=== PATIENT | female | born 2005 | race Caucasian/White ===

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

== ENCOUNTER → 2023-01-10 10:41 | Outpatient (CLI) | payer OTHER, SELFPAY ==
--- NOTE | 2023-01-10 10:44 | XR_ITS ---
FINAL REPORT CLINICAL HISTORY: neck pain..shielded..headaches FINDINGS: Five views of the cervical spine including flexion and extension were obtained. There is no acute fracture or subluxation. No instability is seen with flexion or extension. The vertebrae are normal height. Precervical soft tissues are unremarkable. IMPRESSION: Unremarkable exam, no instability with flexion or extension. Reviewed, Interpreted and Dictated by Maxwell Sanders III, MD Transcribed by Lima Davila Authenticated and [facility]
[2023-01-10 12:39] LABS: Thyroid Stimulating Hormone 0.44 uIU/mL (0.465-4.68)
[2023-01-10 13:15] LABS: Vitamin B12 411 pg/mL (239-931)
[2023-02-06 21:27] LABS: Antinuclear Antibodies (ANA) Negative
== END ==
PROVIDERS: PCP Internal Medicine Adolescent Medicine; Visit Provider Nurse Practitioner Family
DX: R55 Syncope and collapse (principal); G89.29 Other chronic pain; G93.40 Encephalopathy, unspecified; M54.2 Cervicalgia; R51.9 Headache, unspecified
CPT/HCPCS: 36415; 72052; 82607; 82746; 84443; 86038; 93270

== ENCOUNTER → 2023-02-08 13:10 | Outpatient (CLI) | payer OTHER, SELFPAY | PROVIDERS: PCP Internal Medicine Adolescent Medicine; Visit Provider Nurse Practitioner Family | DX: G47.30 Sleep apnea, unspecified (principal); G93.40 Encephalopathy, unspecified; M54.2 Cervicalgia; R51.9 Headache, unspecified; G89.29 Other chronic pain; G47.00 Insomnia, unspecified; R55 Syncope and collapse | CPT/HCPCS: G0399 ==

== ENCOUNTER → 2023-02-10 08:31 | Outpatient (CLI) | payer OTHER, SELFPAY | PROVIDERS: PCP Internal Medicine Adolescent Medicine; Visit Provider Nurse Practitioner | DX: R55 Syncope and collapse (principal); R00.0 Tachycardia, unspecified | CPT/HCPCS: 93306 ==

== ENCOUNTER 2023-04-02 10:28 | Emergency (ER) | payer OTHER, SELFPAY ==
[2023-04-02 10:40] VITALS: BP 129/67; PULSE 80; RESP 20; TEMP 37.1; O2SAT 98; BMI 23.4
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
[2023-04-02 10:49] VITALS: BP 129/67; PULSE 80; RESP 20; TEMP 37.1; O2SAT 98
[2023-04-02 11:45] LABS: HCG Qualitative, Serum Negative (Negative)
== END 2023-04-02 10:51 | disposition home or self-care (01) ==
PROVIDERS: Emergency Provider Nurse Practitioner Family; PCP Internal Medicine Adolescent Medicine
DX: N91.2 Amenorrhea, unspecified (principal); J45.909 Unspecified asthma, uncomplicated; Z87.891 Personal history of nicotine dependence
CPT/HCPCS: 84703; 99212; G0463

== ENCOUNTER → 2023-05-06 13:30 | Outpatient (CLI) | payer OTHER, SELFPAY ==
[2023-05-06 14:22] LABS: HCG,Quantitative 142 mIU/ml (0-5.42)
[2023-05-08 11:18] LABS: Progesterone 18.8 ng/mL (.)
== END ==
PROVIDERS: PCP Internal Medicine Adolescent Medicine; Visit Provider Obstetrics & Gynecology
DX: N92.6 Irregular menstruation, unspecified (principal)
CPT/HCPCS: 36415; 84144; 84702

== ENCOUNTER 2023-05-08 12:48 | Emergency (ER) | payer OTHER, SELFPAY ==
--- NOTE | 2023-05-08 12:52 | HMH.EDGENADL ---
Discharge Plan Disposition Patient Disposition: Home, Self-Care Condition: Good Prescriptions Prescriptions: New nitrofurantoin 50 mg/5 mL suspension 50 mg PO Q6H 7 Days Qty: 140 0RF Rx Instructions: must administer with a meal/food No Action ondansetron HCl 4 mg tablet 4 mg PO TID PRN (Reason: Nausea & vomiting) Qty: 30 0RF sertraline 25 mg tablet 25 mg PO DAILY Qty: 30 1RF albuterol sulfate [Proventil HFA] 90 mcg/actuation HFA aerosol inhaler 1 inh inhalation PRN polyethylene glycol 3350 [Gavilax] 17 gram/dose powder 17 g PO PRN Patient Comments: MIX 1 CAPFUL OF POWDER IN LIQUID AND DRINK BY MOUTH ONCE DAILY cranberry extract-vitamin C [Azo Cranberry Plus Vit C] 250-60 mg capsule See Rx Instructions PO .COMPLEX Rx Instructions: orally daily; multivitamin Tablet 1 tab PO DAILY cyproheptadine 4 mg tablet 4 mg PO HS 30 Days Qty: 30 1RF sumatriptan succinate 100 mg tablet See Rx Instructions PO .COMPLEX Qty: 10 1RF Rx Instructions: take 1 tab at onset of headache; if no relief, may repeat 1 tab after at least 2 hrs; max = 2 tabs/24 hrs PO bisoprolol fumarate 5 mg tablet 5 mg PO DAILY Qty: 30 2RF Referrals Follow up/Referrals: Patricia Downs DO [Primary Care Provider] - See instructions Activity Restrictions/Add. Instructions Additional Instructions/Restrictions: As discussed, I have written a prescription for antibiotics given that you have bacteria in your urine during , your ultrasound does not show any abnormalities but you may be too early in her to detect an abnormality thus if you have new or worsening symptoms please return to the emergency department. Please follow-up with your OB doctor Clinical Impressions Clinical Impression: Acute right lower quadrant pain, Asymptomatic bacteriuria during Instructions Patient Instructions: DI for Acute Abdominal Pain Discharge ED Provider: Mahesh Gates Adult HPI General Chief complaint: Abdominal Pain Stated complaint: ab pain right, back pain radiating Time Seen by Provider: 05/08/23 12:52 History of Present Illness HPI narrative: Patient presents for evaluation of mild right lower quadrant abdominal pain in the absence of any fevers or nausea or vomiting or urinary symptoms. Has not had similar symptoms before, of note is approximately 4 weeks , has yet to establish care with OB service, but describes upcoming appointment in the near future. Symptoms were gradual in onset starting over the past 24 hours, stable in course, pain is described as dull and nonradiating, no precipitating trauma, no abdominal surgical history. No sick contacts, no constipation or diarrhea. No known history of ovarian cyst. Denies daily medications. No vaginal bleeding or vaginal discharge. No recent travel. Symptoms did not occur in the setting of exertion or any known precipitating factors. Related Data Home Medications Medication Instructions Recorded Confirmed albuterol sulfate 90 mcg/actuation 1 inh inhalation PRN 01/10/23 01/27/23 aerosol inhaler (Proventil HFA) cranberry extract-vitamin C 250 See Rx Instructions PO .COMPLEX 01/10/23 01/27/23 mg-60 mg capsule (Azo Cranberry Plus Vit C) multivitamin 1 tab PO DAILY 01/10/23 01/27/23 polyethylene glycol 3350 17 17 g PO PRN 01/10/23 01/27/23 gram/dose oral powder (Gavilax) Previous Rx's Medication Instructions Recorded ondansetron HCl 4 mg tablet 4 mg PO TID PRN Nausea & vomiting 12/20/22 #30 tabs sertraline 25 mg tablet 25 mg PO DAILY #30 tabs 12/20/22 cyproheptadine 4 mg tablet 4 mg PO HS migraine per [place]oc[place] 01/10/23 [employer] guideli 30 days #30 tabs sumatriptan succinate 100 mg tablet See Rx Instructions PO .COMPLEX 01/10/23 #10 tabs bisoprolol fumarate 5 mg tablet 5 mg PO DAILY #30 tabs 01/27/23 nitrofurantoin 50 mg/5 mL oral 50 mg (5 mL) PO Q6H 7 da
[2023-05-08 12:57] VITALS: BP 131/82; PULSE 88; RESP 19; TEMP 37.2; O2SAT 100; BMI 21.4
--- NOTE | 2023-05-08 12:58 | PC.NURSE ---
called radiology for /s
[2023-05-08 13:00] VITALS: BP 117/76; PULSE 84; RESP 18; O2SAT 100
--- NOTE | 2023-05-08 13:00 | PC.NURSE ---
US tech called in for info. regarding us on pt
--- NOTE | 2023-05-08 13:04 | US_ITS ---
PROCEDURE INFORMATION: Exam: US , Transvaginal Exam date and time: 05/08/2023 1:37 PM Age: 17 years old Clinical indication: complicated by abdominal or pelvic pain; Right lower quadrant; First trimester (<14 weeks 0 days); Gestational age or lmp: Unsure lmp 6w5d; ; Patient HX: Rlq pain-- bhcgs on 05/06-- 142; Additional info: Abd pain LABS AND CLINICAL REPORTS: Last menstrual period start date: 03/22/2023 Gestational age (Established): 6 w 5 d Estimated due date (Established): 12/27/2023 TECHNIQUE: Imaging protocol: Real-time transvaginal obstetrical ultrasound of the maternal pelvis with image documentation. Transvaginal imaging was used for better evaluation of the fetus, adnexa, and/or cervix. Total images: 145 COMPARISON: CT ABDOMEN PELVIS W CON 11/24/2022 7:52 AM FINDINGS: Gestation: No evidence of intrauterine gestation. MATERNAL: Right ovary/adnexa: Right ovary measures 5.5 cm x 3.46 cm x 3.03 cm. Right ovarian volume is 30.19 mL. Complex right adnexal cyst is present measuring 2.4 x 2.2 x 2.1 cm. Surrounding vascularity is present. Left ovary/adnexa: Left ovary measures 2.92 cm x 2.76 cm x 1.19 cm. Left ovarian volume is 5.02 mL. Intraperitoneal space: No free fluid. IMPRESSION: 1. No evidence of intrauterine gestation. Findings may be consistent with miscarriage, however early or ectopic cannot be excluded. 2. Complex right adnexal cyst is present measuring 2.4 x 2.2 x 2.1 cm. Surrounding vascularity is present. 3. No free fluid.
--- NOTE | 2023-05-08 13:14 | PC.NURSE ---
Assumed patient care at this time.
[2023-05-08 13:30] VITALS: BP 118/77; PULSE 89; O2SAT 100
[2023-05-08 13:35] LABS: Alanine Aminotransferase 19 U/L (12-78); Albumin Level 4.7 g/dl (3.5-5.0); Albumin/Globulin Ratio 1.5 (1.1-1.8); Alkaline Phosphatase 65 U/L (38-126); Anion Gap 13.7 mEq/L (5-15); Aspartate Amino Transferase 25 U/L (14-36); Bilirubin,Total 0.5 mg/dl (0.2-1.3); Blood Urea Nitrogen 9 mg/dl (7-17); Calcium 9.3 mg/dl (8.4-10.2); Carbon Dioxide 22 mmol/L (22.0-30.0); Chloride 106 mmol/L (98-107); Creatinine Clearance Estimated 134 mL/min (50-200); Estimated Glomerular Filt Rate 108 ml/min (>60); GFR (African American) 130 ML/MIN (>60); Globulin 3.2 g/dL (1.3-3.2); Glucose 116 mg/dl (74-100); Potassium 3.7 mmoL/L (3.5-5.1); Sodium 138 mmol/L (136-145); Total Protein,Serum 7.9 g/dl (6.3-8.2)
--- NOTE | 2023-05-08 13:35 | PC.NURSE ---
Pt to US
[2023-05-08 13:36] LABS: Basophils % 0.4 % (0.1-2.0); Eosinophils # 0.1 K/mm3 (0.0-0.4); Hematocrit 39.2 % (37.0-47.0); Hemoglobin 12.4 g/dL (12.2-16.2); Lymphocytes # 1.6 K/mm3 (0.7-4.5); Lymphocytes % 22.6 % (10-50); Mean Corpuscular HGB Conc 31.6 g/dL (31.8-35.4); Mean Corpuscular Hemoglobin 28.4 pg (27.0-31.2); Mean Platelet Volume 8.8 fl (7.4-10.4); Monocytes # 0.4 K/mm3 (0.1-1.0); Monocytes % 5.4 % (1.7-9.3); Neutrophils % 70.6 % (37.0-80.0); Platelet Count 194 K/mm3 (142-424); Red Blood Count 4.36 M/mm3 (4.20-5.40); Red Cell Distribution Width 12.9 % (11.5-17.5); White Blood Count 7.1 K/mm3 (4.5-13.0)
[2023-05-08 13:52] LABS: HCG,Quantitative 351 mIU/ml (0-5.42)
[2023-05-08 14:02] VITALS: BP 129/90; PULSE 71; O2SAT 100
[2023-05-08 14:31] VITALS: BP 113/79; PULSE 76; O2SAT 100
[2023-05-08 14:32] LABS: Microscopic, Urine URINE MICROSCOPIC (MICROSCOPIC)
[2023-05-08 14:43] LABS: Appearance,Urine CLEAR (Clear); Bilirubin,Urine Negative (Negative); Blood, Urine Negative (Negative); Color,Urine YELLOW (Yellow); Glucose,Urine (UA) Negative (Negative); Ketones,Urine Negative (Negative); Leukocyte Esterase,Urine 1+ (Negative); Nitrate,Urine Negative (Negative); Protein,Urine 1+ (Negative); Specific Gravity, Urine 1.025 (1.005-1.030); Urobilinogen,Urine 0.2 EU/dl (0.2)
[2023-05-08 15:15] LABS: Bacteria,Urine Trace /lpf
[2023-05-08 15:34] VITALS: BP 105/80; PULSE 81; RESP 18; TEMP 36.7
--- NOTE | 2023-05-09 12:20 | PC.NURSE ---
[facility] pharmacy called requesting that they change macrobid from suspension to pill form r/t suspension form is unavailable.
--- NOTE | 2023-05-18 09:52 | EXP.EVENT.NO ---
On 05/18 at 9:52 AM, I sent clotrimazole 1% cream topically to patient's pharmacy, after conversation with pharmacy.
--- NOTE | 2023-05-18 10:21 | PC.NURSE ---
notified pt of urine culture results and of prescription called in [facility]. Spoke with pt on the phone.
--- NOTE | 2023-05-21 09:18 | PC.NURSE ---
pt receiving appropriate antibiotic and cream for yeast culture results. MD lira
== END 2023-05-08 15:35 | disposition home or self-care (01) ==
PROVIDERS: Emergency Provider Emergency Medicine; PCP Obstetrics & Gynecology
DX: O26.891 Other specified pregnancy related conditions, first trimester (principal); O23.41 Unspecified infection of urinary tract in pregnancy, first trimester; R10.31 Right lower quadrant pain; Z3A.01 Less than 8 weeks gestation of pregnancy
CPT/HCPCS: 76817; 76830; 80053; 81001; 84702; 85025; 86850; 87086; 87088; 99285

== ENCOUNTER → 2023-06-07 10:51 | Outpatient (CLI) | payer OTHER, SELFPAY ==
[2023-06-07 11:25] LABS: Basophils % 0.1 % (0.1-2.0); Eosinophils # 0.1 K/mm3 (0.0-0.4); Eosinophils % 1.7 % (0.1-12.0); Hematocrit 35.2 % (37.0-47.0); Hemoglobin 12.1 g/dL (12.2-16.2); Lymphocytes # 1.1 K/mm3 (0.7-4.5); Lymphocytes % 20.5 % (10-50); Mean Corpuscular HGB Conc 34.5 g/dL (31.8-35.4); Mean Corpuscular Hemoglobin 30.6 pg (27.0-31.2); Mean Corpuscular Volume 88.8 fl (81-99); Mean Platelet Volume 7.9 fl (7.4-10.4); Monocytes # 0.3 K/mm3 (0.1-1.0); Monocytes % 4.8 % (1.7-9.3); Neutrophils # 3.9 K/mm3 (1.8-7.8); Neutrophils % 72.9 % (37.0-80.0); Platelet Count 159 K/mm3 (142-424); Red Blood Count 3.97 M/mm3 (4.20-5.40); Red Cell Distribution Width 12.8 % (11.5-17.5); White Blood Count 5.4 K/mm3 (4.5-13.0)
[2023-06-08 08:29] LABS: HIV Screen 4th Generation wRfx Non Reactive (Non Reactive)
[2023-06-08 12:05] LABS: Rapid Plasma Reagin Ab Titer Non Reactive titer (NonRea<1:1)
[2023-06-09 23:37] LABS: Neisseria gonorrhoeae, NAA Negative (Negative)
[2023-06-15 12:06] LABS: Hepatitis B Surface Antigen Negative; Hepatitis C Antibody Non Reactive; Rubella Antibodies, IgG 7.99
== END ==
PROVIDERS: PCP Internal Medicine Adolescent Medicine; Visit Provider Obstetrics & Gynecology
DX: Z34.91 Encounter for supervision of normal pregnancy, unspecified, first trimester (principal); Z3A.09 9 weeks gestation of pregnancy
CPT/HCPCS: 36415; 85025; 86593; 86703; 86762; 86850; 87086; 87340; 87380; 87491; 87591; G0432

== ENCOUNTER → 2023-07-06 06:41 | Outpatient (CLI) | payer OTHER, SELFPAY | PROVIDERS: PCP Obstetrics & Gynecology; Visit Provider Obstetrics & Gynecology | DX: Z34.90 Encounter for supervision of normal pregnancy, unspecified, unspecified trimester (principal) ==

== ENCOUNTER → 2023-07-06 15:06 | Outpatient (CLI) | payer OTHER, SELFPAY ==
[2023-07-11 06:06] LABS: Neisseria gonorrhoeae, NAA Negative (Negative)
== END ==
PROVIDERS: PCP Obstetrics & Gynecology; Visit Provider Obstetrics & Gynecology
DX: Z86.19 Personal history of other infectious and parasitic diseases (principal)
CPT/HCPCS: 87491; 87591

== ENCOUNTER 2023-08-24 13:42 | Outpatient (CLI) | payer OTHER, SELFPAY ==
--- NOTE | 2023-08-24 13:42 | US_ITS ---
PROCEDURE: US OB /MATERNAL DETAIL CLINICAL INDICATION: 20 week anatomy scan COMPARISON: No exams were available for comparison FINDINGS: Transabdominal sonographic images of the pelvis were obtained. From her established due date she is 20 weeks 2 days. Single viable intrauterine gestation. Breech position. Placenta: Anteriorplacenta grade 1. There are 2 placental lakes of questionable significance. There is an average amount of fluid. The cervix appears satisfactory. Closed and measuring 4.3 cm in length. Complete survey performed and was unremarkable on the submitted images as in PACS. No discrete anomalies identified on survey imaging by technologist. Active fetus. Three-vessel cord with satisfactory umbilical cord insertion. 4- chamber heart noted. Situs, aortic arch, LVOT, RVOT,normal. Survey of brain & ventricles Unremarkable. Cerebellum, thalamus, choroid plexus, cisterna magna appear normal. Face and neck survey unremarkable. Profile, nasion, lips and nose appeared normal. Diaphragm and chest views unremarkable. Abdomen: Both kidneys noted and unremarkable. Stomach and bladder noted and satisfactory. Spine: Survey of the spine satisfactory with no anomalies identified nor imaged. Cervical, thoracic, lower spine appear normal. Both arms and legs noted. Amniotic Fluid: Adequate. Measurements: Average ultrasound age 20weeks 0 days. Estimated due date by ultrasound age 0501/11/2024. Estimated weight 318g BPD = 20weeks 2days OFD = 20weeks 4days HC = 19weeks 5days AC = 19weeks 5days FL = 20weeks 1day Growth Percentile= 24 Heart Rate = 156bpm Cerebellum = 20weeks 0 days Humerus = 19weeks 6days HC/AC is 1.19 CI is 0.77 FL/BPD is 0.69 FL/AC is 0.22 IMPRESSION: 1. Viable fetus in the breech presentation with an anterior placenta grade 1. 2. The fluid is within normal limits. 3. Anatomical scan appears normal. 4. biometry is consistent with dates. Dictated by: Sergei Angeles MD 08/24/2023 17:08 Sergei Angeles MD in OV 08/24/2023 17:08
== END 2023-08-24 23:59 ==
LOC: RAD 13:42
PROVIDERS: PCP Internal Medicine Adolescent Medicine; Visit Provider Obstetrics & Gynecology
DX: Z34.92 Encounter for supervision of normal pregnancy, unspecified, second trimester (principal); Z3A.20 20 weeks gestation of pregnancy
CPT/HCPCS: 76811

== ENCOUNTER 2023-10-17 08:12 | Outpatient (CLI) | payer OTHER, SELFPAY ==
[2023-10-17 08:40] LABS: Basophils % 0.2 % (0.1-2.0); Eosinophils # 0.1 K/mm3 (0.0-0.4); Eosinophils % 1.2 % (0.1-12.0); Hematocrit 36.1 % (37.0-47.0); Hemoglobin 11.5 g/dL (12.2-16.2); Lymphocytes # 1.6 K/mm3 (0.7-4.5); Lymphocytes % 21.9 % (10-50); Mean Corpuscular HGB Conc 31.7 g/dL (31.8-35.4); Mean Corpuscular Hemoglobin 30.1 pg (27.0-31.2); Mean Platelet Volume 9.4 fl (7.4-10.4); Monocytes # 0.4 K/mm3 (0.1-1.0); Monocytes % 5.1 % (1.7-9.3); Neutrophils # 5.2 K/mm3 (1.8-7.8); Neutrophils % 71.5 % (37.0-80.0); Platelet Count 177 K/mm3 (142-424); Red Blood Count 3.81 M/mm3 (4.20-5.40); Red Cell Distribution Width 12.9 % (11.5-17.5); White Blood Count 7.3 K/mm3 (4.5-13.0)
[2023-10-17 09:06] LABS: Glucose,Fasting 75 mg/dl (74-100)
[2023-10-17 11:02] LABS: Glucose 1 Hour 95 mg/dL (74-100)
== END 2023-10-17 23:59 ==
LOC: LAB 08:13
PROVIDERS: PCP Internal Medicine Adolescent Medicine; Visit Provider Obstetrics & Gynecology
DX: O26.893 Other specified pregnancy related conditions, third trimester (principal); O99.323 Drug use complicating pregnancy, third trimester; D56.3 Thalassemia minor; Z3A.28 28 weeks gestation of pregnancy
CPT/HCPCS: 36415; 82951; 85025

== ENCOUNTER 2023-10-20 13:18 | Outpatient (CLI) | payer OTHER, SELFPAY ==
--- NOTE | 2023-10-20 13:19 | US_ITS ---
PROCEDURE: US OB FOLLOW UP CLINICAL INDICATION: SGA COMPARISON: US US OB /MATERNAL DETAIL from 08/24/2023 FINDINGS: Transabdominal sonographic images of the pelvis were obtained. The following parameters are obtained: From her established due date she is 28weeks 3days Viable fetus in the cephalic presentation with an anterior placenta grade 1. There is a placental St at the superior aspect of the placenta that measures 6.0 centimeters in length.. The cervix measures 3.0 cm. heart rate: 147bpm bpm. weight 1158 grams, 2 lb 9 oz. BPD: 29weeks 4days, 71 percentile HC: 29weeks 0 days, 34 percentile AC: 27weeks 1day, 11 percentile FL: 28weeks 6days, 44 percentile HC/AC: 1.17 FL/BPD: 0.74 FL/AC: 0.24 Growth percentile: 23rd Amniotic fluid index: 10.13cm, MVP 3.68 cm No obvious anomalies evident. profile seen, stomach, bladder, kidneys, three-vessel cord, four chamber heart appear normal. IMPRESSION: 1. Viable fetus in the cephalic presentation with an anterior placenta grade 1. 2. In the superior aspect of the placenta there is a [address] Suggest MFM consult. 3. The fluid is within normal limits with an amniotic fluid index of 10.13 cm, MVP 3.68 cm. 4. There has been good interval growth with the fetus currently 23rd percentile. Dictated by: Sergei Angeles MD 10/20/2023 15:08 Sergei Angeles MD in OV 10/20/2023 15:08
== END 2023-10-20 23:59 ==
LOC: RAD 13:19
PROVIDERS: PCP Internal Medicine Adolescent Medicine; Visit Provider Obstetrics & Gynecology
DX: O36.5930 Maternal care for other known or suspected poor fetal growth, third trimester, not applicable or unspecified (principal); Z3A.28 28 weeks gestation of pregnancy; D56.3 Thalassemia minor
CPT/HCPCS: 76816

== ENCOUNTER 2023-12-02 15:31 | Emergency (ER) | payer OTHER, SELFPAY ==
[2023-12-02] VITALS (8 sets, daily range): BP systolic 117–131; BP diastolic 74–85; PULSE 85–114; RESP 16–25; TEMP 36.7–37.1; O2SAT 97–100; BMI 28.5
--- NOTE | 2023-12-02 15:31 | ECG_ITS ---
APPROVED REPORT Exam: Resting ECG HR:106 bpm ECG Measurements Heart Rate 106 AXES OK 111 P 60 QRSd 92 QRS 56 QT 317 T 15 QTc 379 Conclusion SINUS TACHYCARDIA WITH SHORT OK INTERVAL NONSPECIFIC T-WAVE ABNORMALITY ABNORMAL RHYTHM ECG Electronically signed by : SHANTANU NICHOLAS, 12/02/2023 20:49:00
--- NOTE | 2023-12-02 15:50 | XR_ITS ---
PROCEDURE INFORMATION: Exam: XR Chest Exam date and time: 12/02/2023 4:35 PM Age: 17 years old Clinical indication: Pain; Chest pressure; Additional info: Cp TECHNIQUE: Imaging protocol: Radiologic exam of the chest. Views: 1 view. COMPARISON: CT CHEST WO CON 05/21/2021 10:57 AM FINDINGS: Lungs: Unremarkable. No consolidation. Pleural spaces: Unremarkable. No pleural effusion. No pneumothorax. Heart/Mediastinum: Unremarkable. No cardiomegaly. Bones/joints: Unremarkable. IMPRESSION: Stable chest x-ray with no acute disease.
[2023-12-02 15:57] LABS: Basophils # 0.1 K/mm3 (0-0.2); Basophils % 0.6 % (0.1-2.0); Eosinophils # 0.1 K/mm3 (0.0-0.4); Eosinophils % 1.5 % (0.1-12.0); Hematocrit 37.9 % (37.0-47.0); Hemoglobin 12.3 g/dL (12.2-16.2); Lymphocytes # 1.3 K/mm3 (0.7-4.5); Lymphocytes % 14.7 % (10-50); Mean Corpuscular HGB Conc 32.6 g/dL (31.8-35.4); Mean Corpuscular Hemoglobin 30.1 pg (27.0-31.2); Mean Corpuscular Volume 92.6 fl (81-99); Mean Platelet Volume 9.9 fl (7.4-10.4); Monocytes # 0.4 K/mm3 (0.1-1.0); Monocytes % 4.4 % (1.7-9.3); Neutrophils % 78.8 % (37.0-80.0); Platelet Count 174 K/mm3 (142-424); Red Blood Count 4.09 M/mm3 (4.20-5.40); White Blood Count 8.8 K/mm3 (4.5-13.0)
[2023-12-02 15:58] LABS: Chloride 110 mmol/L (98-107)
[2023-12-02 15:59] LABS: Potassium 3.7 mmoL/L (3.5-5.1); Sodium 133 mmol/L (136-145)
[2023-12-02 16:01] LABS: Alanine Aminotransferase 15 U/L (12-78); Alkaline Phosphatase 126 U/L (38-126); Aspartate Amino Transferase 29 U/L (14-36); Bilirubin,Total 0.4 mg/dl (0.2-1.3); Blood Urea Nitrogen 4 mg/dl (7-17); Creatinine Clearance Estimated 250 mL/min (50-200); Estimated Glomerular Filt Rate 159 ml/min (>60); GFR (African American) 192 ML/MIN (>60)
[2023-12-02 16:02] LABS: Albumin Level 3.6 g/dl (3.5-5.0); Albumin/Globulin Ratio 1.2 (1.1-1.8); Anion Gap 5.7 mEq/L (5-15); Calcium 9.2 mg/dl (8.4-10.2); Carbon Dioxide 21 mmol/L (22.0-30.0); Glucose 115 mg/dl (74-100); Total Protein,Serum 6.6 g/dl (6.3-8.2)
[2023-12-02 16:11] LABS: D-Dimer 0.72 ug/mL (0.0-0.5)
--- NOTE | 2023-12-02 16:15 | HMH.EDCP ---
Discharge Plan Disposition Patient Disposition: Home, Self-Care Chief Complaint: Chest Pain Prescriptions Prescriptions: No Action famotidine [Pepcid] 20 mg tablet 20 mg PO BID Qty: 120 4RF DHA 200 mg capsule 200 mg PO DAILY ondansetron 4 mg tablet,disintegrating 4 mg PO Q8H PRN (Reason: nausea and vomiting) Qty: 30 1RF Referrals Follow up/Referrals: Provider,Referral, MD [Referring] - See instructions Activity Restrictions/Add. Instructions Additional Instructions/Restrictions: At this time it was felt you are safe to be discharged home. If new or worsening symptoms please do not hesitate to return the emergency department. If symptoms persist please follow-up with your family doctor as you are able for possible cardiology referral. Follow-up with your OB doctor as discussed. Clinical Impressions Clinical Impression: Chest pain during Discharge ED Provider: Myke Michael General Chief Complaint: Chest Pain Stated Complaint: Chest pain Time Seen by Provider: 12/02/23 15:47 Mode of Arrival: Ambulatory Source of Information: Patient Limitations: No Limitations Description of Symptoms (Recalled from ER Triage Doc. by RN): PT REPORTS INTERMITTENT MIDSTERNAL CHEST PAIN THAT RADIATES TO BACK. WORSE TODAY, WORSE WITH DEEP BREATHING. PT IS 34 WEEKS GESTATION. . REPORTS NAUSEA THIS AM History of Present Illness HPI narrative: Patient is a 17-year-old female past medical history of tracheoesophageal fistula status postrepair who presents emergency department for evaluation of chest pain. Patient has not had any cardiovascular abnormalities associated with TEF. Onset was acute, over the last 48 hours it was intermittent however has become persistent today, substernal, worse with deep inspiration. Patient is G1, P0 EGA 34 weeks and a few days. There is associated nausea however no vomiting or diarrhea, no abdominal pain, no other acute complaints at this time. Related Data Home Medications Medication Instructions Recorded Confirmed docosahexaenoic acid 200 mg 200 mg PO DAILY 06/07/23 11/30/23 capsule ( DHA) Previous Rx's Medication Instructions Recorded famotidine 20 mg tablet (Pepcid) 20 mg PO BID #120 tabs 11/02/23 ondansetron 4 mg disintegrating 4 mg PO Q8H PRN nausea and 11/21/23 tablet vomiting #30 tabs Allergies Allergy/AdvReac Type Severity Reaction Status Date / Time Penicillins [PENICILLINS] Allergy Unknown Anaphylaxis Verified 11/30/23 09:18 Sulfa (Sulfonamide Allergy Anaphylaxis Verified 11/30/23 09:18 Antibiotics) COCONUT Allergy Intermediate I-ITCHING Uncoded 11/30/23 09:18 [facility] Disclaimer: The information contained in this section may have been updated after the patient was seen, as this information can be updated by other users. 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 Asymmetric intrauterine growth restriction (IUGR) Placental abnormality Large placental moore Heartburn during Marijuana use during Alpha thalassemia silent carrier [employer] carrier screen 06/21/23 + for Alpha thalassemia silent carrier. Negative for 13 other conditions tested including CF, Fragile X and SMA Nausea and vomiting during History of rectal fissure repaired 2004 Benign liver cyst Asthma Cervical strain Abdominal pain Acute bronchitis Costalchondritis Atypical chest pain Gastroenteritis Surgical History History of rectal surgery fissure repair History of mandibular surgery 2019 Family History Mother FHx: mental illness Bipolar Substance abuse Father FHx: mental illness Bipolar Substance abuse Family/Other Heart attack Coronary artery disease Family/Other Cancer breast, lung, brain, cervical Family/Other Idiopathic pulmonary fibrosis Social History Smoking Status: Former smoker how long ago did patient quit smoking: vape second hand exposure: No alcohol intake: never substance use type: other details: cbd gummies current occupational status: unemployed Travel in the last 8 weeks: None adopted: Yes household members: adopted family housing: house lives independently: No marital status: single service: No 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 current occupational exposures/hazards: Yes Hx Recent Travel: No sexually active: No caffeine: Yes ROS Obtained: Yes Systems reviewed as appropriate & no additional complaints except as documented Physical Exam General General appearance: alert and in no apparent distress Head Head exam: atraumatic and normocephalic Eye Eye exam: Present PERRL and EOMI ENT ENT exam: Present mucous membranes moist Neck Neck exam: Present normal inspection Chest Chest inspection: Present normal inspection and symmetric chest wall rise Respiratory Respiratory exam: Present normal lung sounds bilaterally; Absent respiratory distress Cardiovascular Cardiovascular exam: Present regular rate and normal rhythm Abdominal Exam Abdominal exam: Present distention (Gravid); Absent tenderness Extremities Exam Extremities exam: Present normal inspection Neurological Exam Neurological exam: Present alert Psychiatric Psychiatric exam: Present normal affect Skin Skin exam: Present warm and dry HEART Score HEART Score HEART Score assessment performed?: Yes History (anamnesis): Moderately suspicious ECG: Normal Age: <45 years Risk factors: 1-2 risk factors Troponin: </= normal limit HEART Score: 2 Critical Care Critical Care Time Critical Care Time: No Medical Decision Making Maksim Inquiry Pt receiving controlled substance: No Vital Signs Vital Signs: 12/02/23 15:31 12/02/23 15:35 12/02/23 16:00 Temperature 98.0 F Temperature Source Oral Pulse Rate 114 H 95 H Pulse Rate [Apical] 108 H Respiratory Rate 18 25 H 16 Blood Pressure 125/85 119/78 Blood Pressure [Right Arm] 125/85 Blood Pressure Mean [Right Arm] 98 Blood Pressure Source [Right Arm] Automatic Cuff Blood Pressure Position [Right Arm] Sitting 02 Sat by Pulse Oximetry 100 97 98 Oxygen Delivery Method Room Air 12/02/23 16:30 12/02/23 17:00 Temperature Temperature Source Pulse Rate 98 H 92 H Pulse Rate [Apical] Respiratory Rate 21 17 Blood Pressure 117/78 120/74 Blood Pressure [Right Arm] Blood Pressure Mean [Right Arm] Blood Pressure Source [Right Arm] Blood Pressure Position [Right Arm] 02 Sat by Pulse Oximetry 97 98 Oxygen Delivery Method Lab Data Labs: Lab Results 12/02/23 15:36: WBC 8.8, RBC 4.09 L, Hgb 12.3, Hct 37.9, MCV 92.6, MCH 30.1, MCHC 32.6, RDW 13.0, Plt Count 174, MPV 9.9, Neut % (Auto) 78.8, Lymph % (Auto) 14.7, [place] % (Auto) 4.4, Eos % (Auto) 1.5, Baso % (Auto) 0.6, Neut # (Auto) 7.0, Lymph # (Auto) 1.3, [place] # (Auto) 0.4, Eos # (Auto) 0.1, Baso # (Auto) 0.1, D-Dimer 0.72 H, Sodium 133 L, Potassium 3.7, Chloride 110 H, Carbon Dioxide 21 L, Anion Gap 5.7, BUN 4 L, Creatinine 0.50 L, Estimated Creat Clear 250, Estimated GFR 159, Est GFR ( Amer) 192, Glucose 115 H, Calcium 9.2, Total Bilirubin 0.4, AST 29, ALT 15, Alkaline Phosphatase 126, Troponin I < 0.01, Total Protein 6.6, Albumin 3.6, Globulin 3.0, Albumin/Globulin Ratio 1.2 12/02/23 17:59: Troponin I < 0.01 12/02/23 15:36 12/02/23 15:36 Response Orders (Tests/Meds): ED MEDICATIONS Generic Name Dose Route Start Last Admin Trade Name Freq PRN Reason Stop Dose Admin Sodium Chloride 10 ml 12/02/23 15:44 Sodium Chloride 0.9% 10ml Flush Syringe IV 01/01/24 15:43 NEEDED PRN Maintain IV Site Discontinued Medications Generic Name Dose Route Start Last Admin Trade Name Freq PRN Reason Stop Dose Admin Acetaminophen 1,000 mg 12/02/23 15:58 12/02/23 16:18 Acetaminophen 1,000mg/100ml Vial IV 12/02/23 15:59 1,000 mg ONCE ONE Administration ORDERS Category Date Time Status CXR --portable [XR chest portable] Stat Exams 12/02/23 15:50 Completed Complete Blood Count Auto Diff Stat Lab 12/02/23 15:36 Completed Comprehensive Metabolic Panel Stat Lab 12/02/23 15:36 Completed D-Dimer Stat Lab 12/02/23 15:36 Completed Troponin I Q3H Lab 12/02/23 17:59 Completed Troponin I Q3H Lab 12/02/23 19:00 Ordered Troponin I Q3H Lab 12/02/23 21:45 Ordered Troponin I Q3H Lab 12/02/23 22:00 Ordered Troponin I Stat Lab 12/02/23 15:36 Completed ECG Data Tracing #1: ECG Narrative: Independently interpreted by me, rate is 106, rhythm is regular, sinus tachycardia, no ST elevation in anatomical contiguous leads, QTc 379. MDM Narrative Medical Decision Narrative: In summary patient is a 17-year-old female with past medical history described above who presents emergency department for evaluation of chest pain. Patient is hemodynamically stable nontoxic-appearing upon arrival, afebrile. Differential diagnosis includes pulmonary embolism, cardiac chest pain, noncardiac chest pain, acid reflux, dissection, among others. Workup will be conducted with hematologic labs, chest x-ray, EKG, troponins, D-dimer. Initial inventions include Tylenol. Workup reviewed by me, hematologic labs are nonactionable, D-dimer mildly elevated however pulmonary bruising can be excluded per years criteria, mild hyponatremia which is nonactionable, no THOMAS, initial troponin undetectably low. Upon repeat evaluation patient continued to be well-appearing. Serial troponins are undetectably low. Given this it is felt that all cardiovascular emergencies have been ruled out at this point patient is appropriate for discharge at this time. Patient was given return precautions.
[2023-12-02 16:17] LABS: Troponin I < 0.01 ng/ml (0.00-0.034)
[2023-12-02] MEDS: ACETAMINOPHEN 1,000MG/100ML VIAL 1000 MG IV (16:18)
--- NOTE | 2023-12-02 17:25 | PC.NURSE ---
Rounded on patient. Complaint of mild headache. MD notified.
[2023-12-02 18:31] LABS: Troponin I < 0.01 ng/ml (0.00-0.034)
--- NOTE | 2023-12-02 18:35 | PC.NURSE ---
FHT'S AUDIBLE PER DOPPLER AT 130'S
--- NOTE | 2023-12-02 18:36 | PC.NURSE ---
DR NICHOLAS AT BEDSIDE TO UPDATE PT
== END 2023-12-02 18:41 | disposition home or self-care (01) ==
PROVIDERS: Emergency Provider Emergency Medicine; PCP Internal Medicine Adolescent Medicine
DX: O26.893 Other specified pregnancy related conditions, third trimester (principal); R07.9 Chest pain, unspecified; R00.0 Tachycardia, unspecified; Z3A.34 34 weeks gestation of pregnancy
CPT/HCPCS: 71045; 80053; 84484; 85025; 85378; 93005; 96374; 99284; J0131

== ENCOUNTER 2023-12-12 09:52 | Outpatient (CLI) | payer OTHER, SELFPAY ==
[2023-12-12 09:56] VITALS: BP 133/79; PULSE 112; RESP 16; TEMP 37.1; O2SAT 98; BMI 28.5
== END 2023-12-12 10:26 | disposition home or self-care (01) ==
LOC: OBOUT 09:53 → OB 09:53
PROVIDERS: PCP Internal Medicine Adolescent Medicine; Visit Provider Obstetrics & Gynecology
DX: O26.893 Other specified pregnancy related conditions, third trimester (principal); Z3A.36 36 weeks gestation of pregnancy

== ENCOUNTER 2023-12-14 13:18 | Outpatient (CLI) | payer OTHER, SELFPAY ==
[2023-12-14] VITALS (8 sets, daily range): BP systolic 119–144; BP diastolic 73–90; PULSE 83–111; RESP 18; TEMP 36.8; O2SAT 97; BMI 28.5
[2023-12-14 14:09] LABS: Microscopic, Urine URINE MICROSCOPIC (MICROSCOPIC)
[2023-12-14 14:39] LABS: Fetal Membrane Rupture (Rapid) Negative (Negative)
[2023-12-14 14:45] LABS: Appearance,Urine CLEAR (Clear); Bilirubin,Urine Negative (Negative); Blood, Urine TRACE-I (Negative); Color,Urine YELLOW (Yellow); Glucose,Urine (UA) Negative (Negative); Ketones,Urine Negative (Negative); Leukocyte Esterase,Urine 3+ (Negative); Nitrate,Urine Negative (Negative); PH,Urine 6.5 (5.0-8.5); Protein,Urine Negative (Negative); Urobilinogen,Urine 0.2 EU/dl (0.2)
[2023-12-14 14:50] LABS: Amphetamine/Metha Screen,Urine Negative ng/ml (<1000); Benzodiazepines Screen,Urine Negative ng/ml (<200)
[2023-12-14 14:51] LABS: Barbiturates Screen,Urine Negative ng/ml (<200)
[2023-12-14 14:52] LABS: Cannabinoid Screen,Urine Negative ng/ml (<50); Cocaine Screen,Urine Negative ng/ml (<300)
[2023-12-14 14:53] LABS: Methadone Screen,Urine Negative ng/ml (<300); Opiate Screen,Urine Negative ng/ml (<300)
[2023-12-14 14:54] LABS: Phencyclidine Screen,Urine Negative ng/ml (<25)
[2023-12-14 15:06] LABS: Bacteria,Urine Trace /lpf; RBC,Urine Occasional #/hpf (0-3); Squamous Epithelial Cell,Urine 20-50 #/hpf (0-5)
[2023-12-14] MEDS: LACTATED RINGERS 1000ML 1,000 ML 999 ML IV (15:52)
== END 2023-12-14 15:52 | disposition home or self-care (01) ==
LOC: OBOUT 13:21 → OB 13:21
PROVIDERS: PCP Internal Medicine Adolescent Medicine; Visit Provider Obstetrics & Gynecology
DX: O26.893 Other specified pregnancy related conditions, third trimester (principal); Z3A.36 36 weeks gestation of pregnancy; R51.9 Headache, unspecified; R42 Dizziness and giddiness
CPT/HCPCS: 80307; 81001; 84112; 87086; G0463

== ENCOUNTER 2023-12-15 16:40 | Outpatient (CLI) | payer OTHER, SELFPAY | END 2023-12-15 23:59 | disposition home or self-care (01) | LOC: LAB.DROPOF 16:40 | PROVIDERS: PCP Obstetrics & Gynecology; Visit Provider Obstetrics & Gynecology | DX: O26.893 Other specified pregnancy related conditions, third trimester (principal); Z3A.37 37 weeks gestation of pregnancy | CPT/HCPCS: 86403 ==

== ENCOUNTER 2023-12-20 13:04 | Inpatient (IN) | payer OTHER, SELFPAY ==
[2023-12-20 13:11] VITALS: BMI 30.4
[2023-12-20 13:48] LABS: Basophils % 0.2 % (0.1-2.0); Eosinophils # 0.1 K/mm3 (0.0-0.4); Eosinophils % 0.9 % (0.1-12.0); Hematocrit 34.4 % (37.0-47.0); Hemoglobin 11.3 g/dL (12.2-16.2); Lymphocytes # 1.3 K/mm3 (0.7-4.5); Lymphocytes % 16.3 % (10-50); Mean Corpuscular Hemoglobin 30.2 pg (27.0-31.2); Mean Corpuscular Volume 91.4 fl (81-99); Mean Platelet Volume 9.9 fl (7.4-10.4); Monocytes # 0.8 K/mm3 (0.1-1.0); Monocytes % 9.7 % (1.7-9.3); Neutrophils # 5.7 K/mm3 (1.8-7.8); Neutrophils % 72.9 % (37.0-80.0); Platelet Count 182 K/mm3 (142-424); Red Blood Count 3.76 M/mm3 (4.20-5.40); Red Cell Distribution Width 13.5 % (11.5-17.5); White Blood Count 7.8 K/mm3 (4.5-13.0)
[2023-12-20 13:48] LABS: Microscopic, Urine URINE MICROSCOPIC (MICROSCOPIC)
[2023-12-20 13:56] LABS: Appearance,Urine CLEAR (Clear); Bilirubin,Urine Negative (Negative); Blood, Urine Negative (Negative); Color,Urine YELLOW (Yellow); Glucose,Urine (UA) Negative (Negative); Ketones,Urine Negative (Negative); Leukocyte Esterase,Urine TRACE (Negative); Nitrate,Urine Negative (Negative); Protein,Urine Negative (Negative); Specific Gravity, Urine >= 1.030 (1.005-1.030); Urobilinogen,Urine 0.2 EU/dl (0.2)
[2023-12-20] MEDS: miSOPROStol 100MCG TABLET 50 MCG PO ×2 (14:03→20:04)
[2023-12-20 14:05] VITALS: BP 124/69; PULSE 103; RESP 18; TEMP 37.1; O2SAT 99; BMI 30.4
[2023-12-20 14:20] LABS: Benzodiazepines Screen,Urine Negative ng/ml (<200)
[2023-12-20 14:21] LABS: Amphetamine/Metha Screen,Urine Negative ng/ml (<1000); Barbiturates Screen,Urine Negative ng/ml (<200)
[2023-12-20 14:22] LABS: Cannabinoid Screen,Urine Negative ng/ml (<50)
[2023-12-20 14:23] LABS: Methadone Screen,Urine Negative ng/ml (<300)
[2023-12-20 14:24] LABS: Opiate Screen,Urine Negative ng/ml (<300)
[2023-12-20 14:25] LABS: Bacteria,Urine 1+ /lpf; Mucus,Urine 1+ /lpf
[2023-12-20 14:27] LABS: Cocaine Screen,Urine Negative ng/ml (<300)
[2023-12-20 14:28] LABS: Calcium Oxalate Crystals,Urine 1+ /lpf
[2023-12-20 14:33] LABS: Phencyclidine Screen,Urine Negative ng/ml (<25)
[2023-12-20] MEDS: BUTORPHANOL TARTRATE 1 MG/ML VIAL IM (21:42)
[2023-12-21] VITALS (8 sets, daily range): BP systolic 114–140; BP diastolic 58–77; PULSE 88–114; RESP 14–21; TEMP 36.6–37; O2SAT 98–100
[2023-12-21] MEDS: BUTORPHANOL TARTRATE 1 MG/ML VIAL IM (01:55)
[2023-12-21] MEDS: PROMETHAZINE HCL 25MG/ML 1ML VIAL 12.5 MG IV (01:55)
[2023-12-21] MEDS: miSOPROStol 100MCG TABLET 50 MCG PO (01:56)
[2023-12-21] MEDS: SODIUM CHLORIDE 0.9% 25ML BAG 25 ML IV (01:56)
[2023-12-21] MEDS: BUTORPHANOL TARTRATE 1 MG/ML VIAL IV ×2 (05:36→08:15)
[2023-12-21] MEDS: ONDANSETRON 4MG/2ML VIAL 4 MG IV (08:10)
--- NOTE | 2023-12-21 08:45 | EXP.OB.APHP ---
OB - H&P: HPI Antepartum History of Present Illness Chief complaint: Induction of labor for IUGR History of present illness: Ms Sydney Dykes is a very pleasant 18 yo at 37w2d, by LMP and confirmed by first trimester ultrasound, who presents to [facility] L&D for scheduled induction of labor secondary to IUGR. Ultrasound with [facility] 12/19/23 demonstrated EFW 20 %ile but AC 1 %ile, JANETT WNL, BPP 03/29 - [facility] recommended delivery during the 37th week. She has had good care. Baby is active. History of Present Criteria for establishing EDC:: LMP confirmed by 1st trimester US care: good care Ultrasounds: abnormal US findings (Asymmetric IUGR) Obstetrical complications: growth restriction Medical complications: none Labs Blood type: O (+) positive Rubella: immune RPR/VDRL: nonreactive GBS status: negative HBsAG: negative [facility] Disclaimer: The information contained in this section may have been updated after the patient was seen, as this information can be updated by other users. 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 (Updated 12/21/23 @ 08:55 by Loida Arceo DO) 37 weeks gestation of Asymmetric intrauterine growth restriction (IUGR) Placental abnormality Heartburn during Marijuana use during Alpha thalassemia silent carrier Nausea and vomiting during History of rectal fissure Benign liver cyst Asthma Cervical strain Abdominal pain Acute bronchitis Costalchondritis Atypical chest pain Gastroenteritis Surgical History History of rectal surgery History of mandibular surgery Family History Mother FHx: mental illness Bipolar Substance abuse Father FHx: mental illness Bipolar Substance abuse Family/Other Heart attack Coronary artery disease Family/Other Cancer breast, lung, brain, cervical Family/Other Idiopathic pulmonary fibrosis Social History Smoking Status: Former smoker how long ago did patient quit smoking: vape second hand exposure: No alcohol intake: never substance use type: other details: cbd gummies current occupational status: unemployed and student Travel in the last 8 weeks: Inside the [place] adopted: Yes household members: adopted family housing: house lives independently: No marital status: single service: No 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 current occupational exposures/hazards: Yes Hx Recent Travel: No sexually active: No caffeine: Yes Review of Systems Review of Systems Review of systems:: pertinent systems reviewed and negative unless documented below Meds Home Medications and Allergies Home Medications Medication Instructions Recorded Confirmed Type docosahexaenoic acid 200 mg 200 mg PO DAILY 06/07/23 12/20/23 History capsule ( DHA) famotidine 20 mg tablet (Pepcid) 20 mg PO BID #120 tabs 11/02/23 12/20/23 Rx ondansetron 4 mg disintegrating 4 mg PO Q8H PRN nausea and 11/21/23 12/20/23 Rx tablet vomiting #30 tabs New Prescriptions to Start Prescriptions: Allergies Allergy/AdvReac Type Severity Reaction Status Date / Time Penicillins [PENICILLINS] Allergy Unknown Anaphylaxis Verified 12/20/23 09:34 Sulfa (Sulfonamide Allergy Anaphylaxis Verified 12/20/23 09:34 Antibiotics) COCONUT Allergy Intermediate I-ITCHING Uncoded 12/20/23 09:34 OB - H&P: Exam Physical Exam Vital signs: Temp Pulse Resp BP Pulse Ox O2 Del Method 98.2 F 88 17 126/65 99 Room Air 12/21/23 07:32 12/21/23 07:32 12/21/23 07:32 12/21/23 07:32 12/21/23 07:32 12/21/23 07:32 Constitutional no acute distress and cooperative Routine HEENT Exam Head: Present normocephalic and atraumatic Eye: Absent conjunctivae pink ENT: Present mucous membranes moist Routine Neck Exam Present full ROM Routine Respiratory Exam Present CTA bilaterally and normal respiratory effort Routine Cardiovascular Exam Present RRR Routine Abdominal Exam Present soft (Gravid); Absent tenderness Routine Rectal Exam Patient deferred: visual exam Routine Exam External: Present normal urethra appearance; Absent erythema, swelling, tenderness, lesions or lacerations Routine Extremities Exam Present edema (+1 bilateral lower extremity edema) and full ROM; Absent calf tenderness Routine Neurological Exam Present alert, moving all extremities and normal speech Routine Psychiatric Exam Present normal affect and cooperative Detailed Labor and Delivery Exam Dilation (cm): 2 Effacement (%): 60 Cervix position: posterior station: -2 Consistency: soft Membranes: artificially ruptured (AROM'd with amnihook at 0757. Patient tolerated well. 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: Moderate (11-25) Tachysystole: No OB - Results Labs Labs: Short CBC 12/20/23 Range/Units 13:35 WBC 7.8 (4.5-13.0) K/mm3 Hgb 11.3 L (12.2-16.2) g/dL Hct 34.4 L (37.0-47.0) % Plt Count 182 (142-424) K/mm3 Urine 12/20/23 Range/Units 13:20 Urine Color Yellow (Yellow) Urine Appearance Clear (Clear) Urine pH 6.0 (5.0-8.5) Ur Specific [place] >= 1.030 (1.005-1.030) Urine Protein Negative (Negative) Urine Glucose (UA) Negative (Negative) OB - A/P Antepartum (1) 37 weeks gestation of : Status: Acute (2) Asymmetric intrauterine growth restriction (IUGR): Status: Acute (3) Heartburn during : Status: Acute (4) Marijuana use during : Status: Acute (5) Alpha thalassemia silent carrier: Problem details: [employer] carrier screen 06/21/23 + for Alpha thalassemia silent carrier. Negative for 13 other conditions tested including CF, Fragile X and SMA Status: Acute (6) Mood disorder: Status: Chronic (7) Bipolar 2 disorder: Status: Acute (8) Borderline personality disorder: Status: Acute Additional Plan Planning to breastfeed?: Yes Plan: induction Additional Information:: Admit to [facility] L&D for scheduled induction of labor Induction with Cytotec followed by Pitocin GBS negative Close monitoring
[2023-12-21] MEDS: OXYTOCIN/RINGERS LACTATE 30 UNITS/500 ML BAG IV (08:47)
[2023-12-21] MEDS: DEXTROSE 5%-LACTATED RINGERS 1,000 ML 125 ML IV (08:47)
[2023-12-21] MEDS: LACTATED RINGERS 1000ML 1,000 ML 250 ML IV (08:48)
--- NOTE | 2023-12-21 10:20 | P.PNANES_ITS ---
[facility] Disclaimer: The information contained in this section may have been updated after the patient was seen, as this information can be updated by other users. 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 37 weeks gestation of Asymmetric intrauterine growth restriction (IUGR) Placental abnormality Heartburn during Marijuana use during Alpha thalassemia silent carrier Nausea and vomiting during History of rectal fissure Benign liver cyst Asthma Cervical strain Abdominal pain Acute bronchitis Costalchondritis Atypical chest pain Gastroenteritis Surgical History History of rectal surgery History of mandibular surgery Family History Mother FHx: mental illness Substance abuse Father FHx: mental illness Substance abuse Family/Other Heart attack Coronary artery disease Family/Other Cancer Family/Other Idiopathic pulmonary fibrosis Social History Smoking Status: Former smoker how long ago did patient quit smoking: vape second hand exposure: No alcohol intake: never substance use type: other details: cbd gummies current occupational status: unemployed and student Travel in the last 8 weeks: Inside the 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 current occupational exposures/hazards: Yes Hx Recent Travel: No sexually active: No caffeine: Yes [facility] Anesthesia Checklist Patient Identification Patient Identification: Arm Band and Verbal (Name & ) Structural Data Admitted From: Inpatient Planned Operative Procedure/s: Labor epidural Consent for Planned Operative Procedure(s) Verified: Yes NPO Status Verified Time NPO: 00:00 Chart Verification Results Verified: CBC Additional verifications Patient : Yes Anesthesia Reactions: No Airway Assessment Mallampati Score:: Class II C-Spine Mobility Assessed: Yes TMJ Mobility Assessed: Yes Dentition: Good Dentition Neurological Assessment Level of Consciousness: Awake Hx Seizures: No Numbness or tingling in extremities: No Anesthesia Plan Anesthesia Risk discussed: Yes Anesthesia Plan: Verified ASA Class: II Anesthesia Type: Epidural
[2023-12-21] MEDS: AZITHROMYCIN 500 MG in 0.9 % SODIUM CHLORIDE 250 ML 250 MG IV (12:10)
--- NOTE | 2023-12-21 12:22 | P.PN_ITS ---
Labor Note Subjective: Date: 12/21/23 Time: 12:22 regular contraction Comment:: Epidural hot spot at LLQ Objective: Contractions:: every 2-3 minutes Cervical Dilation:: 5 Effacement:: 80% Station: -2 Membranes: artificially ruptured Comment:: NST category 1 Baseline 130 bpm, moderate variability, + accelerations, + early decelerations [place]: q 3 minutes Fetus: Monitoring?: Yes monitoring type:: Internal and External Assessment: Labor progressing?: Yes Problems: (1) 37 weeks gestation of : Category: Medical Code(s): Z3A.37 - 37 weeks gestation of (2) Asymmetric intrauterine growth restriction (IUGR): Category: Medical (3) Heartburn during : Qualifiers: Trimester: third trimester Qualified Code(s): O26.893 - Other specified related conditions, third trimester; R12 - Heartburn Category: Medical Code(s): O26.899 - Other specified related conditions, unspecified trimester; R12 - Heartburn (4) Marijuana use during : Category: Medical Code(s): O99.320 - Drug use complicating , unspecified trimester; F12.90 - Canna bis use, unspecified, uncomplicated (5) Alpha thalassemia silent carrier: Problem Comment: [employer] carrier screen 06/21/23 + for Alpha thalassemia silent carrier. Negative for 13 other conditions tested including CF, Fragile X and SMA Category: Medical Code(s): D56.3 - Thalassemia minor (6) Bipolar 2 disorder: Category: Medical Code(s): F31.81 - Bipolar II disorder (7) Borderline personality disorder: Category: Medical Code(s): F60.3 - Borderline personality disorder (8) Anxiety and depression: Category: Medical Code(s): F41.9 - Anxiety disorder, unspecified; F32.A - Depression, unspecified Plan: Additional information:: Epidural placed but not providing adequate relief. IUPC inserted to monitor contractions and decelerations. She is 5/80/-2, kota noted Sydney is very uncomfortable and elective for primary . She does not want to continue labor Discussed primary . Discussed risks, benefits, alternatives, expe ctations and possible complications of surgery. All questions addressed and answered. She voiced understanding of risks and possible complications. Consent form signed.
[2023-12-21] MEDS: GENTAMICIN SULFATE 360 MG in 0.9 % SODIUM CHLORIDE 100 ML 100 MG IV (13:13)
[2023-12-21] MEDS: CLINDAMYCIN PHOSPHATE/D5W 900 MG/50 ML PIGGYBACK 50 MG IV (13:13)
--- NOTE | 2023-12-21 14:28 | SUR.OPER ---
1430- detailed report given to malia moran in OR by malia Ewing
--- NOTE | 2023-12-21 14:37 | P.OP_ITS ---
Date of procedure: 12/21/23 Pre-op Diagnosis:: 1. IUP at 37w2d 2. Asymmetric IUGR 3. Elective section 4. Marijuana use in 5. Borderline personality disorder 6. Bipolar 2 disorder 7. Anxiety and Depression Post-op Diagnosis:: 1. IUP at 37w2d 2. Asymmetric IUGR 3. Elective section 4. Marijuana use in 5. Borderline personality disorder 6. Bipolar 2 disorder 7. Anxiety and Depression 8. Occiput posterior presentation Procedure performed:: Elective Primary Low Transverse Section Surgeon:: Loida Arceo DO [employer] Hand[employer] Supervisor(s):: Patricia Downs DO PROCESS ARCHITECT:: Radha Woods Anesthesia: spinal Estimated blood loss (mL): 650 Clinical Note:: Ms Sydney Dykes is a very pleasant 18 yo at 37w2d, by LMP and confirmed by first trimester ultrasound, who presents to [facility] L&D for scheduled induction of labor secondary to IUGR. Ultrasound with PDC 12/19/23 demonstrated EFW 20 %ile but AC 1 %ile, JANETT WNL, BPP 03/29 - PDC recommended delivery during the 37th week. She has had good care. Baby is active. She underwent induction of labor with Cytotec, amniotomy and Pitocin. She was having a lot of pain with contractions. She received Stadol through the night. She received her epidural in the morning but had a hot spot LLQ. She progressed to 5/80/-2 with caput noted. She stated she was done and wanted to proceed with a . For patient autonomy, decision was made to proceed with elective primary . Operative findings:: 1. Live female baby, Bertha, weighing 6 lb 8 oz. APGARs 7 (1 min), 8 (5 min). 2. Direct occiput posterior presentation 3. Grossly normal appearing uterus, bilateral fallopian tubes and ovaries Operative note:: The risks, benefits and alternatives of the procedure were reviewed with the patient. Informed consent was obtained. Patient was taken to the operating room where epidural was removed and spinal anesthesia was placed. The patient received azithromycin, clindamycin gentamicin preoperatively. Patient was placed in dorsal supine position with a leftward tilt. SCDs in place. Hylton catheter had been placed and was draining clear urine prior to the start of the procedure. heart tones were obtained. Vagina was prepped with Betadine swabs x 3. Patient was then prepped and draped in normal sterile fashion. Allis clamp test was performed to ensure adequate anesthesia. A Pfannenstiel skin incision was made 2 cm above pubic symphysis. This was carried through to underlying layer of fascia. Fascia was incised in midline, extended laterally with Valdez scissors. Superior aspect of fascial incision was grasped with two Dot clamps, elevated up, and rectus muscle dissected off bluntly and sharply with Valdez scissors. Inferior aspect of fascial incision was grasped with two Dot clamps, elevated up, and rectus muscle dissected off bluntly and sharply with Valdez scissors. The retcus muscle was then in the midline and the peritoneum was entered bluntly with a digit. Peritoneal incision was then extended superiorly and inferiorly with good visualization of the bladder. Salbador retractor was inserted. The lower uterine segment was incised in a transverse fashion. Clear amniotic fluid was noted. Direct occiput posterior noted. Head was delivered without difficulty. Remainder of body was delivered without difficulty. Mouth and nares were bulb suctioned. Spontaneous cry was noted. Delayed cord clamping was performed for 60 seconds. The umbilical cord was clamped and cut. The was handed to awaiting pediatric staff in stable condition. Dr. Greco was present. Apgars were 7 (1 min), 8 (5 min). Cord blood was obtained. Gentle traction on the umbilical cord and uterine fundal massage delivered the placenta. Placenta was intact. Placenta will be sent to pathology for review. Uterus was cleared of all clots and debris with a moist laparotomy sponge. Corners of the uterine incision were grasped with Allis clamps. The uterine incision was reapproximated with # 1 Vicryl suture in a running, locked stitch. Second layer of the same stitch was used to imbricate the incision. Hemostasis was noted. Posterior cul-de-sac was cleaned with moist laparotomy sponge. Gutters cleared of all clots and debris with a moist laparotomy sponge. Reinspection of the lower uterine segment demonstrated small amount of oozing. Mckayla was applied over uterine incision. Hemostasis was noted. At this point all instruments and sponges were removed from the pelvis.? The peritoneum was grasped with Sonya clamps x 3. The peritoneum was reapproximated with 0 Vicryl suture in a running stitch. The corners of the fascia were grasped with Dot clamps, and the fascia was reapproximated with two # 1 Vicryl suture overlapped to the right of midline. Subcutaneous tissue was irrigated with clear return of fluids. The subcutaneous tissue was reapproximated with 2-0 Vicryl. Small amount of oozing in the subcutaneous tissue. Surgicel powder was applied. Hemostasis noted. The skin was reapproximated with Insorb dale. Telfa was placed over closed Pfannenstiel skin incision. At the end of the procedure, the uterus was firm with minimal vaginal bleeding. Patient tolerated the procedure well. Instrument, sponges and needle counts were correct x 2. Mom and baby were transported to recovery room in stable condition. Condition: stable Disposition: floor Specimens:: 1. Placenta and umbilical cord Complications:: None
--- NOTE | 2023-12-21 14:59 | P.PNANES_ITS ---
[facility] Anesthesia Record Part I Anesthesia Record I Intake, IV Amount: 1,500 Hydration: Adequate Estimated blood loss (mL): 650 Urine output (mL): 300 Blood Products used (#): none Blood Pressure: 140/68 SaO2: 98 Pulse Rate: 101 Airway Patency: Patent Respiratory Rate: 16 Temperature: 97.8 F Patient is:: Awake (Talking) and Stable Stable to PACU at:: 14:53
--- NOTE | 2023-12-21 15:33 | SUR.PHASEI ---
1518: Dressing clean, dry, intact. Report given to Jeramie Altman RN.
[2023-12-21] MEDS: OXYTOCIN/RINGERS LACTATE 30 UNITS/500 ML BAG 40 UNITS IV (15:35)
--- NOTE | 2023-12-21 15:37 | P.PNANES_ITS ---
[facility] Anesthesia Record Part II Anesthesia Record Part II Discharge Time: 15:18 Destination: Obstetric PACU nurse assessment reviewed?: Yes Patient Condition:: Good Anesthesia Complications:: None Swallowing reflex intact?: Yes Airway Patency: Patent Cyanosis?: No Blood Pressure: 114/59 SaO2: 99 Respiratory Rate: 14 Pulse Rate: 114 Temperature: 97.8 F Mental Status: Alert & Oriented Pain level:: 0 Nausea and/or vomitting:: None Intake, IV Amount: 1,500 Hydration: Adequate
[2023-12-21] MEDS: KETOROLAC 30MG/ML VIAL 30 MG IV ×2 (15:40→21:31)
[2023-12-21] MEDS: ACETAMINOPHEN 500MG TAB 1000 MG PO ×2 (15:41→21:30)
[2023-12-21] MEDS: HYDROMORPHONE 2MG/ML SYRINGE 2 MG IV (17:51)
[2023-12-21] MEDS: PRENATAL MULTIVITAMIN W/IRON 1 EACH PO (17:51)
[2023-12-21] MEDS: FAMOTIDINE 20MG TABLET 20 MG PO (21:30)
[2023-12-21] MEDS: CLINDAMYCIN PHOSPHATE/D5W 900 MG/50 ML PIGGYBACK 100 MG IV (22:26)
[2023-12-22] MEDS: OXYCODONE 5MG IMMEDIATE RELEASE TABLET 5 MG PO ×6 (01:12→20:36)
[2023-12-22] MEDS: KETOROLAC 30MG/ML VIAL 30 MG IV ×3 (03:24→14:51)
[2023-12-22] MEDS: ACETAMINOPHEN 500MG TAB 1000 MG PO ×4 (03:24→20:36)
[2023-12-22] MEDS: CLINDAMYCIN PHOSPHATE/D5W 900 MG/50 ML PIGGYBACK 100 MG IV (06:01)
[2023-12-22] MEDS: PROMETHAZINE HCL 25MG/ML 1ML VIAL 12.5 MG IV (06:10)
[2023-12-22] MEDS: SODIUM CHLORIDE 0.9% 25ML BAG 25 ML IV (06:11)
--- NOTE | 2023-12-22 07:04 | EXP.ACUTE.PN ---
Subjective *Date: 12/22/23 *Time: 07:18 Interval history: POD # 1 s/p PLTCS Resting in bed. Pain not well controlled. She is pumping and formula feeding. Lochia is appropriate. Voiding without difficulty and passing flatus. Tolerating regular diet. Denies fever/chills, chest pain and shortness of breath. No headaches, vision changes, lightheadedness/dizziness. Denies lower extremity edema. Ambulating well ad henny. Medical Exam Vital signs and Labs for Last 24 Hours: Vital Signs Temp Pulse Pulse Resp BP BP Pulse Ox 12/21/23 23:53 98.6 F 92 H 17 119/77 12/21/23 15:39 14 12/21/23 15:18 97.8 F 114 H 14 114/59 L 99 12/21/23 15:08 97.8 F 111 H 21 117/58 L 100 12/21/23 15:00 97.8 F 101 H 16 140/68 12/21/23 14:58 97.8 F 110 H 14 138/70 98 12/21/23 14:48 97.8 F 101 H 16 140/68 98 12/21/23 07:32 98.2 F 88 17 126/65 99 O2 Del Method 12/21/23 23:53 12/21/23 15:39 12/21/23 15:18 Room Air 12/21/23 15:08 Room Air 12/21/23 15:00 12/21/23 14:58 Room Air 12/21/23 14:48 Room Air 12/21/23 07:32 Room Air Intake and Output 12/21/23 12/21/23 12/22/23 15:59 23:59 07:59 Intake Total 3000 / 3000 Balance 3000 / 3000 Intake: Intake, Total IV Amount 3000 / 3000 I & O for Labs for Last 24 Hours: Intake & Output 12/19/23 12/20/23 12/21/23 12/22/23 23:59 23:59 23:59 23:59 Intake Total 3000 / 3000 Balance 3000 / 3000 Weight 206 lb Head: Present atraumatic and normocephalic ENT: Present normal exam Neck: Present full ROM Respiratory: Present CTA bilaterally and normal respiratory effort Cardiac: Present Reg Rate and Rhythm GI: Present soft, tenderness (appropriate tenderness to palpation postoperatively) and normal bowel sounds; Absent distention or guarding Comments:: Uterine fundus firm and below umbilicus, pfannenstiel incision clean/dry/intact with steri strips in place Rectal (female): Present deferred (female): Present deferred Extremities: Present full ROM; Absent edema or calf tenderness Neuro: Present alert, awake and moves all extremities Assessment and Plan *Assessment and plan (1) S/P : Status: Acute Category: Surgical Code(s): Z98.891 - History of uterine scar from previous surgery (2) 37 weeks gestation of : Status: Acute Category: Medical Code(s): Z3A.37 - 37 weeks gestation of (3) Asymmetric intrauterine growth restriction (IUGR): Status: Acute Category: Medical (4) Alpha thalassemia silent carrier: Problem Comment: [employer] carrier screen 06/21/23 + for Alpha thalassemia silent carrier. Negative for 13 other conditions tested including CF, Fragile X and SMA Status: Acute Category: Medical Code(s): D56.3 - Thalassemia minor (5) Marijuana use: Status: Chronic Category: Social Hx Code(s): F12.90 - Cannabis use, unspecified, uncomplicated (6) Bipolar 2 disorder: Status: Acute Category: Medical Code(s): F31.81 - Bipolar II disorder (7) Borderline personality disorder: Status: Acute Category: Medical Code(s): F60.3 - Borderline personality disorder (8) Anxiety and depression: Status: Acute Category: Medical Code(s): F41.9 - Anxiety disorder, unspecified; F32.A - Depression, unspecified Plan Continue routine care Will increase Oxy to 5-10 mg PO q 4-6 hours PRN Encouraged increased ambulation Plan d/c home POD # 2 or POD # 3
[2023-12-22 07:18] LABS: Basophils % 0.1 % (0.1-2.0); Eosinophils # 0.1 K/mm3 (0.0-0.4); Eosinophils % 0.7 % (0.1-12.0); Hematocrit 27.7 % (37.0-47.0); Hemoglobin 9.2 g/dL (12.2-16.2); Lymphocytes # 1.3 K/mm3 (0.7-4.5); Lymphocytes % 14.7 % (10-50); Mean Corpuscular HGB Conc 33.2 g/dL (31.8-35.4); Mean Corpuscular Hemoglobin 30.6 pg (27.0-31.2); Mean Corpuscular Volume 92.1 fl (81-99); Mean Platelet Volume 9.4 fl (7.4-10.4); Monocytes # 0.7 K/mm3 (0.1-1.0); Monocytes % 7.6 % (1.7-9.3); Neutrophils % 76.8 % (37.0-80.0); Platelet Count 148 K/mm3 (142-424); Red Cell Distribution Width 13.6 % (11.5-17.5); White Blood Count 9.1 K/mm3 (4.5-13.0)
[2023-12-22 08:00] VITALS: BP 132/82; PULSE 86; RESP 18; TEMP 36.8; O2SAT 99
[2023-12-22] MEDS: SENNA 8.6MG TABLET 8.59999999999999964 MG PO (09:40)
[2023-12-22] MEDS: FAMOTIDINE 20MG TABLET 20 MG PO ×2 (09:40→20:36)
--- NOTE | 2023-12-22 11:38 | SW/DCPLANNER ---
Addendum entered by Mandi Faye 12/26/23 08:35: Infant cord screen is NEGATIVE. Original Note: I received a consult on this patient regarding THC use during and FOB not involved. Patient delivered infant female (Bertha Dykes) on 12/21/2023. Per patient 's father is not involved. This is patient's first child. Patient will reside at [address] [place] [address] in [place] [address]. Patient's contact number is [phone]. Patient will be established w/ WIC and is interested in HANDS (I will make a referral). Patient stated that she has the following items at home: crib, carseat, clothing, diapers and will be bottle feeding. PED MD will be Dr Valencia and patient will have transportation to all follow up appointments. Patient is expected to discharge home tomorrow 12/23/23 pending no setbacks.
[2023-12-22 12:00] VITALS: BP 123/76; PULSE 80; RESP 18; O2SAT 99
[2023-12-22] MEDS: IBUPROFEN 400 MG TABLET 800 MG PO ×2 (14:51→22:54)
[2023-12-22 16:00] VITALS: BP 118/71; PULSE 76; RESP 18; O2SAT 99
[2023-12-22 19:55] VITALS: BP 121/75; PULSE 74; RESP 17; TEMP 37
[2023-12-22] MEDS: PRENATAL MULTIVITAMIN W/IRON 1 EACH PO (20:36)
[2023-12-22] MEDS: SIMETHICONE 80MG CHEWABLE TABLET 160 MG PO (20:36)
[2023-12-23 00:12] VITALS: BP 109/51; PULSE 73; RESP 17; TEMP 36.5
[2023-12-23] MEDS: OXYCODONE 5MG IMMEDIATE RELEASE TABLET 10 MG PO (02:20)
[2023-12-23] MEDS: ACETAMINOPHEN 500MG TAB 1000 MG PO ×2 (02:32→09:54)
[2023-12-23 04:30] VITALS: BP 110/71; PULSE 74; RESP 16; TEMP 36.8
[2023-12-23] MEDS: IBUPROFEN 400 MG TABLET 800 MG PO (06:24)
[2023-12-23 07:58] VITALS: BP 132/92; PULSE 80; RESP 18; TEMP 36.8; O2SAT 99
--- NOTE | 2023-12-23 09:03 | EXP.DC.SUM ---
General Admission date:: 12/20/23 Discharge date: 12/23/23 HPI HPI HPI: POD # 2 s/p PLTCS Feeling well. Pain controlled. Formula feeding. Light lochia. Voiding without difficulty and passing flatus. Tolerating regular diet. Denies fever/chills, chest pain and shortness of breath. No headaches, vision changes, lightheadedness/dizziness. Admits to bilateral lower extremity edema. No calf pain. She admits to back soreness secondary to multiple attempts at spinal. Ambulating well ad henny. Hospital Course Hospital Course Hospital Course: Ms Sydney Dykes is a very pleasant 18 yo at 37w2d, by LMP and confirmed by first trimester ultrasound, who presents to [facility] L&D for scheduled induction of labor secondary to IUGR. Ultrasound with PDC 12/19/23 demonstrated EFW 20 %ile but AC 1 %ile, JANETT WNL, BPP 03/29 - PDC recommended delivery during the 37th week. She has had good care. Baby is active. She underwent induction of labor with Cytotec, amniotomy and Pitocin. She was having a lot of pain with contractions. She received Stadol through the night. She received her epidural in the morning but had a hot spot LLQ. She progressed to 5/80/-2 with caput noted. She stated she was done and wanted to proceed with a . For patient autonomy, decision was made to proceed with elective primary . She underwent primary on 12/21/23. She delivered a live female baby, Bertha, weighing 6 olb 8 oz. APGARs 7 (1 min), 8 (5 min). EBL 650 mL. She did well /postoperatively. Pain controlled. Formula feeding. Light lochia. Voiding without difficulty and passing flatus. Tolerating regular diet. Denies fever/chills, chest pain and shortness of breath. No headaches, dizziness/lightheadedness or vision changes. Vital signs stable, afebrile. Heart regular rate and rhythm. Lungs clear to auscultation. Abdomen soft, nontender. She had +3 bilateral lower extremity edema. No calf tenderness to palpation. Ambulating well ad henny. Normal hospital course. She was discharged to home on POD # 2 with instructions to follow-up in the office in 2 weeks or sooner if needed. Exam Data for Last 24 hours Vital signs and Labs for Last 24 Hours: Temp Pulse Resp BP Pulse Ox O2 Del Method 98.3 F 80 18 132/92 H 99 Room Air 12/23/23 07:58 12/23/23 07:58 12/23/23 07:58 12/23/23 07:58 12/23/23 07:58 12/23/23 07:58 I & O for Last 24 hours: Intake & Output 12/20/23 12/21/23 12/22/23 12/23/23 23:59 23:59 23:59 23:59 Intake Total 3000 / 3000 Balance 3000 / 3000 Weight 206 lb Constitutional Constitutional: no acute distress and cooperative *Routine HEENT Exam Head: Present normocephalic and atraumatic Eye: Absent conjunctivae pink ENT: Present mucous membranes moist *Routine Neck Exam Neck: Present full ROM *Routine Respiratory Exam Respiratory: Present CTA bilaterally and normal respiratory effort *Routine Cardiovascular Exam Cardiovascular: Present RRR *Routine Abdominal Exam Abdominal: Present soft and normoactive bowel sounds; Absent tenderness or distended Comments: Uterine fundus firm and below umbilicus, pfannenstiel incision clean/dry/intact with steri strips present *Routine Rectal Exam Patient deferred: visual exam *Routine Exam Patient deferred: external exam *Routine Extremities Exam Extremities: Present edema (+3 bilateral lower extremity edema) and full ROM; Absent calf tenderness *Routine Neurological Exam Neurological: Present alert, moving all extremities and normal speech Routine Psychiatric Exam Psychiatric: Present normal affect and cooperative DS: Diagnosis Discharge Diagnosis (1) S/P : Status: Acute Code(s): Z98.891 - History of uterine scar from previous surgery (2) 37 weeks gestation of : Status: Acute Code(s): Z3A.37 - 37 weeks gestation of (3) Asymmetric intrauterine growth restriction (IUGR): Status: Acute (4) Alpha thalassemia silent carrier: Status: Acute Code(s): D56.3 - Thalassemia minor Problem details: [employer] carrier screen 06/21/23 + for Alpha thalassemia silent carrier. Negative for 13 other conditions tested including CF, Fragile X and SMA (5) Marijuana use: Status: Chronic Code(s): F12.90 - Cannabis use, unspecified, uncomplicated (6) Bipolar 2 disorder: Status: Acute Code(s): F31.81 - Bipolar II disorder (7) Borderline personality disorder: Status: Acute Code(s): F60.3 - Borderline personality disorder (8) Anxiety and depression: Status: Acute Code(s): F41.9 - Anxiety disorder, unspecified; F32.A - Depression, unspecified (9) anemia: Status: Acute Code(s): O90.81 - Anemia of the puerperium Meds Home Medications and Allergies Home Medications Medication Instructions Recorded Confirmed Type docosahexaenoic acid 200 mg 200 mg PO DAILY 06/07/23 12/20/23 History capsule ( DHA) ondansetron 4 mg disintegrating 4 mg PO Q8H PRN nausea and 11/21/23 12/20/23 Rx tablet vomiting #30 tabs ibuprofen 800 mg tablet 800 mg PO Q8H PRN pain #20 tabs 12/23/23 Rx oxycodone 5 mg tablet 5 mg PO Q4HP PRN Moderate Pain 12/23/23 Rx (4-6) #20 tabs New Prescriptions to Start Prescriptions: ibuprofen Loida Arceo oxycodone Loida Arceo Allergies Allergy/AdvReac Type Severity Reaction Status Date / Time Penicillins [PENICILLINS] Allergy Unknown Anaphylaxis Verified 12/20/23 09:34 Sulfa (Sulfonamide Allergy Anaphylaxis Verified 12/20/23 09:34 Antibiotics) COCONUT Allergy Intermediate I-ITCHING Uncoded 12/20/23 09:34 Discharge Plan Disposition Patient Disposition: Home, Self-Care Condition: Good Discharge Order Discharge Orders: Discharge Order (Routine); Ordered 12/23/23 Ordered By: Loida Arceo Follow up Plan Follow up with: Loida Arceo DO [Staff Physician] - 01/09/24 1:30 pm Prescriptions/Medication Reconciliation: New oxycodone 5 mg Tablet 5 mg PO Q4HP PRN (Reason: Moderate Pain (4-6)) Qty: 20 0RF ibuprofen 800 mg tablet 800 mg PO Q8H PRN (Reason: pain) Qty: 20 0RF Continued DHA 200 mg capsule 200 mg PO DAILY ondansetron 4 mg tablet,disintegrating 4 mg PO Q8H PRN (Reason: nausea and vomiting) Qty: 30 1RF Discontinued famotidine [Pepcid] 20 mg tablet 20 mg PO BID Qty: 120 4RF Problem Reconciliation Problems Reviewed?: Yes Patient Discharge Instructions ACTIVITY: Limited activity DIET: continue same diet and regular diet Additional Instructions: Discharge: 1. Take 800 mg Ibuprofen every 8 hours as needed for pain. You can also take 500-1000 mg of Tylenol in between doses, every 6-8 hours. For severe pain you can take Oxycodone 5 mg every 4 hours as needed. 2. Nothing in the vagina for 6 weeks - no intercourse, douching or tampons. No tub baths/hot tubs or swimming pools 3. No lifting anything heavier than baby in pumpkin seat for 6 weeks 4. Reasons to return to L&D or call On-Call doctor - fever (greater than 100.4) - heavy vaginal bleeding (soaking through 1 pad in less than 2 hours) - vaginal discharge (malodorous and/or purulent) - severe headaches not resolved by medication or rest and leg tenderness/edema 4. depression/blues - Normal to feel anxious/overwhelmed for first 2 weeks - Talk to your doctor if: severe anxiety, trouble bonding with baby, withdrawing from other family members, thoughts of harming yourself or others Loida Arceo DO [facility] [phone] Patient Instructions: Depression, Hemorrhage, DI for , DI for Pre-eclampsia, [facility] Post Discharge Instructions Providers Primary Care Provider: Eligio Greco Admit Provider: Patricia Downs Attending Provider: Loida Arceo
[2023-12-23] MEDS: OXYCODONE 5MG IMMEDIATE RELEASE TABLET 5 MG PO (09:54)
[2023-12-23] MEDS: FAMOTIDINE 20MG TABLET 20 MG PO (09:54)
== END 2023-12-23 12:05 | disposition home or self-care (01) | DRG 787 ==
PROVIDERS: Admitting Provider Obstetrics & Gynecology; PCP Internal Medicine Adolescent Medicine; Visit Provider Obstetrics & Gynecology
PROC: 10D00Z1 Extraction of Products of Conception, Low, Open Approach (ICD-10-PCS; CPT 59514; principal; 2023-12-21 13:15)
DX: O99.344 Other mental disorders complicating childbirth (principal); F31.81 Bipolar II disorder; O99.324 Drug use complicating childbirth; Z3A.37 37 weeks gestation of pregnancy; Z37.0 Single live birth; O36.5930 Maternal care for other known or suspected poor fetal growth, third trimester, not applicable or unspecified; F60.3 Borderline personality disorder; D56.3 Thalassemia minor; F41.9 Anxiety disorder, unspecified; O90.81 Anemia of the puerperium; O32.9XX0 Maternal care for malpresentation of fetus, unspecified, not applicable or unspecified
CPT/HCPCS: 59514; 36415; 59025; 80307; 81001; 85025; 86850; 94761; C9290; G0283; J0456; J0595; J2405

== ENCOUNTER 2024-02-15 23:00 | Emergency (ER) | payer OTHER, SELFPAY ==
[2024-02-15 23:02] VITALS: BP 116/84; PULSE 70; RESP 17; TEMP 37; O2SAT 100; BMI 29.0
--- NOTE | 2024-02-15 23:10 | XR_ITS ---
PROCEDURE INFORMATION: Exam: XR Left Ankle Exam date and time: 02/15/2024 11:07 PM Age: 18 years old Clinical indication: Pain; Ankle; Left; Additional info: Stepping out of bed, everted ankle with pain TECHNIQUE: Imaging protocol: Radiologic exam of the left ankle. Views: 3 or more views. COMPARISON: [id number] MR ankle LT wo/w con 10/06/2018 8:42 AM FINDINGS: Bones/joints: Normal. No acute fracture identified. Soft tissues: Normal. IMPRESSION: No acute findings.
--- NOTE | 2024-02-15 23:18 | ED_ITS ---
Discharge Plan Disposition Patient Disposition: Home, Self-Care Condition: Good Chief Complaint: Extremity Injury, Lower Prescriptions Prescriptions: No Action DHA 200 mg capsule 200 mg PO DAILY ibuprofen 800 mg tablet 800 mg PO Q8H PRN (Reason: pain) Qty: 20 0RF Referrals Follow up/Referrals: Eligio Greco MD [Primary Care Provider] - See instructions Venu Cui MD [Referring] - See instructions Activity Restrictions/Add. Instructions Additional Instructions/Restrictions: Please take Tylenol for pain control and keep the Evan bandage in place for extra support. You can also ice or heat or alternate ice and heat but no more than 20 minutes at a time. Follow-up closely with orthopedics for continued management and slowly return to weightbearing as tolerated at home. Return for any new or worsening symptoms. Clinical Impressions Clinical Impression: Inversion sprain of left ankle Instructions Patient Instructions: DI for Ankle Sprain Discharge ED Provider: Patricia Taylor Adult HPI General Chief complaint: Extremity Injury, Lower Stated complaint: AO 02/141 left ankle pain sweeling Time Seen by Provider: 02/15/24 23:10 Mode of Arrival: Wheelchair Source of Information: Patient Limitations: No Limitations Description of Symptoms (Recalled from ER Triage Doc. by RN): pt reports she was stepping out of bed 15 mins ago and her left foot turned outward onto her ankle. She reports she tried to get her balance and did it again. Pt reports pain to left ankle. Sates she did put ice on it before arrival and that seemed to help with the pain. denies medical hx or daily meds. has not taken any medication for left foot/ankle pain tonight. History of Present Illness HPI narrative: Patient is a 18-year-old female with past medical history migraines, bipolar disorder, anxiety depression presenting with left ankle injury. Patient states that she was stepping out of bed approximately 15 minutes prior to arrival and instead of stepping onto the bottom of her foot she stepped onto her inverted left ankle and then when she went to correct it accidentally did it again. She did not hear a pop or click but has had significant pain and been unable to ambulate since that time. She states that the pain is worse over the lateral aspect of the ankle into the top of the left foot. Has not taken anything for pain. She does note that she had a 2 months ago and is currently breast-feeding. Related Data Home Medications Medication Instructions Recorded Confirmed docosahexaenoic acid 200 mg 200 mg PO DAILY 06/07/23 01/09/24 capsule ( DHA) Previous Rx's Medication Instructions Recorded ibuprofen 800 mg tablet 800 mg PO Q8H PRN pain #20 tabs 12/23/23 Allergies Allergy/AdvReac Type Severity Reaction Status Date / Time Penicillins [PENICILLINS] Allergy Unknown Anaphylaxis Verified 01/09/24 13:34 Sulfa (Sulfonamide Allergy Anaphylaxis Verified 01/09/24 13:34 Antibiotics) COCONUT Allergy Intermediate I-ITCHING Uncoded 01/09/24 13:34 [facility] Disclaimer: The information contained in this section may have been updated after the patient was seen, as this information can be updated by other users. 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 (Updated 02/16/24 @ 00:27 by Patricia Taylor MD) Palpitations Insomnia Encephalopathy Syncope and collapse anemia Alpha thalassemia silent carrier History of rectal fissure Benign liver cyst Asthma Atypical chest pain Gastroenteritis Surgical History S/P History of rectal surgery fissure repair History of mandibular surgery 2019 Family History Mother FHx: mental illness Bipolar Substance abuse Father FHx: mental illness Bipolar Substance abuse Family/Other Heart attack Coronary artery disease Family/Other Cancer breast, lung, brain, cervical Family/Other Idiopathic pulmonary fibrosis Social History Smoking Status: Never smoker how long ago did patient quit smoking: vape second hand exposure: No alcohol intake: never substance use type: other details: cbd gummies current occupational status: unemployed and student Travel in the last 8 weeks: Inside the [place] adopted: Yes household members: adopted family housing: house lives independently: No marital status: single service: No 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 current occupational exposures/hazards: Yes Hx Recent Travel: No sexually active: No caffeine: Yes ROS Obtained: Yes Systems reviewed as appropriate & no additional complaints except as documented Physical Exam General General appearance: alert and in no apparent distress Respiratory Respiratory exam: Present normal lung sounds bilaterally; Absent respiratory distress Cardiovascular Cardiovascular exam: Present regular rate and normal rhythm Extremities Exam Extremities exam: Present other (2+ DP and PT pulses, left ankle not significantly swollen as compared to right, tenderness to palpation over the lateral malleolus and top of left ankle) Neurological Exam Neurological exam: Present alert and oriented X3 Medical Decision Making Medical Records Medical records reviewed: Yes I reviewed the patient's medical records. Maksim Inquiry Pt receiving controlled substance: No Vital Signs: 02/15/24 23:02 02/16/24 00:17 Temperature 98.6 F 98.6 F Temperature Source Oral Oral Pulse Rate 73 Pulse Rate [Left Radial] 70 Respiratory Rate 17 18 Blood Pressure 121/91 H Blood Pressure [Left Arm] 116/84 Blood Pressure Mean [Left Arm] 94 Blood Pressure Source Automatic Cuff Blood Pressure Source [Left Arm] Automatic Cuff Blood Pressure Position Sitting Blood Pressure Position [Left Arm] Sitting 02 Sat by Pulse Oximetry 100 Oxygen Delivery Method Room Air Room Air Lab Data Lab results reviewed: Yes I reviewed the patient's lab results. Orders (Tests/Meds): ED MEDICATIONS Discontinued Medications Generic Name Dose Route Start Last Admin Trade Name Freq PRN Reason Stop Dose Admin Acetaminophen 1,000 mg 02/15/24 23:14 02/15/24 23:21 Acetaminophen 500mg Tab PO 02/15/24 23:15 1,000 mg ONCE ONE Administration ORDERS Category Date Time Status Ankle XR - Left minimum 3 Views [XR ankle LT min 3V] Exams 02/15/24 23:10 Completed Stat Medical Decision Narrative: Patient is a 18-year-old female with past medical history anxiety, depression, bipolar 2 disorder, migraines presenting with left ankle pain after standing on an inverted ankle 15 minutes prior to arrival. She has 2+ pulses, no significant swelling, is tender to palpation over the lateral malleolus. No significant abrasion ecchymosis or erythema. She has not been able to ambulate on the foot since the injury. She notably is currently breast-feeding and would prefer nonopioid medications and wants that do not affect breastmilk supply and we will therefore give Tylenol and obtain imaging for further evaluation. X-ray with no acute process and this was confirmed with formal radiology read. Discussed with patient symptomatic management, Tylenol and given Evan bandage for comfort. Will have her follow-up with orthopedics given extent pain to follow- up on sprain and discharged in stable condition. Patient agreeable with plan. Critical Care Critical Care Time Critical Care Time: No
[2024-02-15] MEDS: ACETAMINOPHEN 500MG TAB 1000 MG PO (23:21)
[2024-02-16 00:17] VITALS: BP 121/91; PULSE 73; RESP 18; TEMP 37; O2SAT 97
== END 2024-02-16 00:31 | disposition home or self-care (01) ==
PROVIDERS: Emergency Provider Emergency Medicine; PCP Internal Medicine Adolescent Medicine
DX: S93.402A Sprain of unspecified ligament of left ankle, initial encounter (principal); M25.572 Pain in left ankle and joints of left foot; X50.1XXA Overexertion from prolonged static or awkward postures, initial encounter
CPT/HCPCS: 73610; 99283

== ENCOUNTER 2024-06-11 15:46 | Emergency (ER) | payer OTHER, SELFPAY ==
[2024-06-11 16:30] VITALS: BP 131/86; PULSE 101; RESP 18; TEMP 37.3; O2SAT 99; BMI 30.4
--- NOTE | 2024-06-11 16:32 | EXP.UTC ---
Discharge Plan Disposition Patient Disposition: Home, Self-Care Condition: Good Prescriptions Prescriptions: New ondansetron 4 mg tablet,disintegrating 4 mg PO Q8H PRN (Reason: nausea and vomiting) Qty: 10 0RF No Action levonorgestrel-ethinyl estrad [Aviane] 0.1-20 mg-mcg tablet 1 tab PO DAILY Qty: 84 4RF azithromycin [Zithromax] 250 mg tablet 250 mg PO UD DOSE PK Qty: 6 0RF Rx Instructions: Take two (2) tablets today, then one (1) tablet days #2 thru #5 methylprednisolone 4 mg Tablets,Dose Pack 4 mg PO DIRECTED 6 Days Qty: 21 0RF Rx Instructions: Take 1 pack as directed for 6 days [id number]-[id number] [Bromfed DM] 2-30-10 mg/5 mL Syrup 5 ml PO Q6H PRN (Reason: Cough) Qty: 240 0RF Referrals Follow up/Referrals: Eligio Greco MD [Primary Care Provider] - See instructions Activity Restrictions/Add. Instructions Additional Instructions/Restrictions: *Monitor Temp, Over the counter Motrin or Tylenol as directed/as needed Tylenol every 4 hours and Motrin every 6 hours (as long as your family doctor has told you that you can take it) for fever or pain. and straight to ER if unable to lower temp less than 101.0 after medication given *Warm salt water gargles may help to soothe the throat *Throat Lozenges? *Warm fluids like tea with honey may help to soothe the throat? *Sleep elevated *Humidifier/Vaporizer Your throat swab was sent for culture. Those results are typically sent to your primary care. Be sure to follow up in 2-3 days with your family doctor/primary care physician if no improvement so they can review those result and treat if necessary. If you don?t have a primary care doctor, I recommend you get one but in the mean time, you will have to return to a walk in clinic Follow up IMMEDIATELY for new or worsening symptoms or no Noticeable improvement over the next 48-72 hours. 911 for difficulty breathing or swallowing You were tested for today for Upper Respiratory Panel with COVID19 your test result should be back in the next 24hours, you may check your results on the [facility] my Health Portal Clinical Impressions Clinical Impression: Viral syndrome Stand Alone Forms Stand Alone Forms: Work/School Release Instructions Patient Instructions: Sore Throat Print Language Print Language: Persian Discharge ED Provider: Zenaida [place] [facility] [place] General Stated complaint: Sore throat, vomiting, fever Time Seen by Provider: 06/11/24 16:33 History of Present Illness Provider Complaint: 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, states that she has been having sore throat, upset stomach and vomiting and feeling achy all over States that there is alot going around at the daycare right now and she was worried that she may have flu or strep throat Related Data Previous Rx's ?Medication ?Instructions ?Recorded levonorgestrel-ethinyl estradiol 1 tab PO DAILY #84 tabs 04/11/24 0.1 mg-20 mcg tablet (Aviane) azithromycin 250 mg tablet 250 mg PO UD DOSE PK #6 tabs 04/24/24 (Zithromax) ytritgdwaajzuho-siyahneutqbzcdi-UE 5 ml PO Q6H PRN Cough #240 mL 04/24/24 2 mg-30 mg-10 mg/5 mL oral syrup (Bromfed DM) methylprednisolone 4 mg tablets in 4 mg PO DIRECTED 6 days #21 tabs 04/24/24 a dose pack ondansetron 4 mg disintegrating 4 mg PO Q8H PRN nausea and 06/11/24 tablet vomiting #10 tabs Allergies Allergy/AdvReac Type Severity Reaction Status Date / Time Penicillins [PENICILLINS] Allergy Unknown Anaphylaxis Verified 04/11/24 11:09 coconut Allergy Verified 04/24/24 11:41 Sulfa (Sulfonamide Allergy Anaphylaxis Verified 04/11/24 11:09 Antibiotics) [facility] Disclaimer: The information contained in this section may have been updated after the patient was seen, as this information can be updated by other users. 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 (Updated 06/11/24 @ 16:37 by Zenaida Sheffield APRN) Heavy menstrual bleeding Palpitations Insomnia Encephalopathy Syncope and collapse anemia Alpha thalassemia silent carrier History of rectal fissure Benign liver cyst Asthma Atypical chest pain Gastroenteritis Surgical History S/P History of rectal surgery History of mandibular surgery Family History Mother FHx: mental illness Bipolar Substance abuse Father FHx: mental illness Bipolar Substance abuse Family/Other Heart attack Coronary artery disease Family/Other Cancer breast, lung, brain, cervical Family/Other Idiopathic pulmonary fibrosis Social History Smoking Status: Never smoker how long ago did patient quit smoking: vape second hand exposure: No alcohol intake: never substance use type: other details: cbd gummies current occupational status: unemployed and student Travel in the last 8 weeks: Inside the [place] adopted: Yes household members: adopted family housing: house lives independently: No marital status: single service: No 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 current occupational exposures/hazards: Yes Hx Recent Travel: No sexually active: No caffeine: Yes ROS Obtained: Yes All systems reviewed & no additional complaints except as documented and Yes Systems reviewed as appropriate & no additional complaints except as documented Constitutional Constitutional: Reports system reviewed and no additional complaints, except as documented, Reports as per HPI, Reports body ache, Reports fever(s) and Reports headache(s) ENT Ears, Nose, Mouth, and Throat: Reports system reviewed and no additional complaints, except as documented, Reports as per HPI, Reports headache(s) and Reports sore throat Cardiovascular Cardiovascular: Reports system reviewed and no additional complaints, except as documented and Reports as per HPI Respiratory Respiratory: Reports system reviewed and no additional complaints, except as documented and Reports as per HPI Gastrointestinal Gastrointestingal: Reports system reviewed and no additional complaints, except as documented, as per HPI, nausea and vomiting Neurologic Neurologic: Reports headache(s) Physical Exam General General appearance: alert and in no apparent distress ENT ENT exam: Present mucous membranes moist Expanded ENT Exam Nose exam: Absent sinus tenderness Throat exam: Present tonsillar erythema Respiratory Respiratory exam: Present normal lung sounds bilaterally; Absent respiratory distress or wheezes Cardiovascular Cardiovascular exam: Present regular rate, normal rhythm and normal heart sounds Neurological Exam Neurological exam: Present alert, oriented X3 and normal gait Medical Decision Making Medical Records Screening: Per USPSTF and CDC recommendations, given the prevalence of disease in our region, it is our hospital?s policy to screen for HIV and viral Hepatitis for all patients aged 18 and over and those with ongoing risk factors. Maksim Inquiry Pt receiving controlled substance: No Maksim was queried for this patient: No Lab Data Lab results reviewed: Yes I reviewed the patient's lab results.
[2024-06-11 16:39] VITALS: BP 131/86; PULSE 101; RESP 18; TEMP 37.3; O2SAT 99
[2024-06-11 16:39] LABS: UTC Influenza A Antigen Negative (Negative); UTC Strep Screen (Rapid) Negative (Negative)
[2024-06-11 16:40] LABS: UTC Influenza B Antigen Negative (Negative)
[2024-06-12 13:10] LABS: Coronavirus 19, PCR Not Detected (NotDetected); Influenza A, PCR Not Detected (NotDetected); Influenza B, PCR Not Detected (NotDetected)
== END 2024-06-11 16:46 | disposition home or self-care (01) ==
PROVIDERS: Emergency Provider Nurse Practitioner; PCP Internal Medicine Adolescent Medicine
DX: R11.2 Nausea with vomiting, unspecified (principal); R05.9 Cough, unspecified; B34.9 Viral infection, unspecified
CPT/HCPCS: 87265; 87486; 87581; 87632; 87635; 87636; 87804; 87880; 99213; G0381

== ENCOUNTER 2024-09-11 09:19 | Emergency (ER) | payer OTHER, SELFPAY ==
[2024-09-11 09:30] VITALS: BP 141/92; PULSE 84; RESP 18; TEMP 36.9; O2SAT 100; BMI 30.2
--- NOTE | 2024-09-11 09:30 | EXP.UTC ---
Discharge Plan Disposition Patient Disposition: Home, Self-Care Condition: Good Referrals Follow up/Referrals: Eligio Greco MD [Primary Care Provider] - See instructions Activity Restrictions/Add. Instructions Additional Instructions/Restrictions: Drink plenty of fluids. Follow up with your regular doctor. GO TO THE ER FOR ANY WORSENING SYMPTOMS Clinical Impressions Clinical Impression: Amenorrhea, Positive urine test Instructions Patient Instructions: Diet Print Language Print Language: [place] Discharge ED Provider: Timothy Singleton [facility] [place] General Stated complaint: preg test Time Seen by Provider: 09/11/24 09:30 History of Present Illness Provider Complaint: She has had a positive urine home test. She came in to have blood drawn to confirm this. She denies any complaints. Related Data Allergies Allergy/AdvReac Type Severity Reaction Status Date / Time Penicillins (PENICILLINS) Allergy Unknown Anaphylaxis Verified 04/11/24 11:09 coconut Allergy Verified 04/24/24 11:41 Sulfa (Sulfonamide Allergy Anaphylaxis Verified 04/11/24 11:09 Antibiotics) [facility] Disclaimer: The information contained in this section may have been updated after the patient was seen, as this information can be updated by other users. 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 (Updated 09/11/24 @ 09:53 by Timothy Singleton APRN) Heavy menstrual bleeding Palpitations Insomnia Encephalopathy Syncope and collapse anemia Alpha thalassemia silent carrier History of rectal fissure Benign liver cyst Asthma Atypical chest pain Gastroenteritis Surgical History S/P History of rectal surgery History of mandibular surgery Family History Mother FHx: mental illness Bipolar Substance abuse Father FHx: mental illness Bipolar Substance abuse Family/Other Heart attack Coronary artery disease Family/Other Cancer breast, lung, brain, cervical Family/Other Idiopathic pulmonary fibrosis Social History Smoking Status: Never smoker how long ago did patient quit smoking: vape second hand exposure: No alcohol intake: never substance use type: other details: cbd gummies current occupational status: unemployed and student Travel in the last 8 weeks: [place] the [place] adopted: Yes household members: adopted family housing: house lives independently: No marital status: single service: No 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 current occupational exposures/hazards: Yes Hx Recent Travel: No sexually active: No caffeine: Yes Have you lived/traveled outside [place] in past 30 days?: No Contact w/someone who lives/traveled outside [place] past 30 days?: No Exposure to someone with infectious disease in past 14 days?: No Do you have a fever (greater than 100.4 F or 38 C)?: No Have you tested positive for COVID-19: No Exposed to someone with COVID-19 in past 14 days?: No Do you have a sore throat?: No Do you have a cough?: No Do you have any weakness?: No Do you have any diarrhea?: No Are you experiencing any unusual bleeding?: No Do you have any muscle aches/pain?: No Do you have any abdominal pain?: No Are you experiencing loss of taste or smell?: No ROS Obtained: Yes All systems reviewed & no additional complaints except as documented Constitutional Constitutional: Denies chills and Denies fever(s) Eyes Eyes: Denies eye discharge ENT Ears, Nose, Mouth, and Throat: Denies dizziness, Denies otalgia and Denies sore throat Cardiovascular Cardiovascular: Denies chest pain Respiratory Respiratory: Denies shortness of breath, Denies chest congestion, Denies cough, Denies stridor and Denies wheezing Gastrointestinal Gastrointestingal: Denies nausea or vomiting Musculoskeletal Musculoskeletal: Reports system reviewed and no additional complaints, except as documented and Denies arthralgias Integumentary/Breasts Skin/Breast: Denies rash Neurologic Neurologic: Denies dizziness and Denies paresthesias Allergic/Immunologic Allergic/Immunologic: Denies wheezing Physical Exam General General appearance: alert and in no apparent distress Head Head exam: atraumatic, normocephalic and normal inspection Eye Eye exam: Present normal appearance, PERRL and EOMI ENT ENT exam: Present normal exam, normal oropharynx, mucous membranes moist, TM's normal bilaterally and normal external ear exam Neck Neck exam: Present normal inspection, full ROM and trachea midline; Absent meningismus or lymphadenopathy Chest Chest inspection: Present normal inspection and symmetric chest wall rise; Absent tenderness Respiratory Respiratory exam: Present normal lung sounds bilaterally; Absent respiratory distress Cardiovascular Cardiovascular exam: Present regular rate and normal rhythm; Absent JVD Abdominal Exam Abdominal exam: Present soft and normal bowel sounds; Absent distention, tenderness or guarding Extremities Exam Extremities exam: Present normal inspection, full ROM and normal capillary refill; Absent calf tenderness Back Exam Back exam: Present normal inspection; Absent tenderness Neurological Exam Neurological exam: Present alert and oriented X3 Psychiatric Psychiatric exam: Present normal affect and normal mood Skin Skin exam: Present warm, dry, intact and normal color Lymphatic Lymphatic Findings: no adenopathy Medical Decision Making Medical Records Medical records reviewed: No I reviewed the patient's medical records. Screening: Per USPSTF and CDC recommendations, given the prevalence of disease in our region, it is our hospital?s policy to screen for HIV and viral Hepatitis for all patients aged 18 and over and those with ongoing risk factors. Maksim Inquiry Pt receiving controlled substance: No Lab Data Lab results reviewed: Yes I reviewed the patient's lab results.
[2024-09-11 09:54] VITALS: BP 141/92; PULSE 84; RESP 18; TEMP 36.9
[2024-09-11 10:44] LABS: HCG,Quantitative 42 mIU/ml (0-5.42)
== END 2024-09-11 09:57 | disposition home or self-care (01) ==
PROVIDERS: Emergency Provider Nurse Practitioner Family; PCP Internal Medicine Adolescent Medicine
DX: N91.2 Amenorrhea, unspecified (principal); Z32.01 Encounter for pregnancy test, result positive
CPT/HCPCS: 84702; 99213; G0381

== ENCOUNTER 2024-09-13 08:46 | Outpatient (CLI) | payer OTHER, SELFPAY ==
[2024-09-13 10:20] LABS: HCG,Quantitative 127 mIU/ml (0-5.42)
[2024-09-14 08:34] LABS: Progesterone 15.2 ng/mL (.)
== END 2024-09-13 23:59 | disposition home or self-care (01) ==
PROVIDERS: PCP Internal Medicine Adolescent Medicine; Visit Provider Obstetrics & Gynecology
DX: Z32.01 Encounter for pregnancy test, result positive (principal)
CPT/HCPCS: 36415; 84144; 84702

== ENCOUNTER 2024-09-15 09:13 | Outpatient (CLI) | payer OTHER, SELFPAY ==
[2024-09-15 10:15] LABS: HCG,Quantitative 352 mIU/ml (0-5.42)
== END 2024-09-15 23:59 | disposition home or self-care (01) ==
LOC: LABREF 09:14 → LAB 09:19
PROVIDERS: PCP Internal Medicine Adolescent Medicine; Visit Provider Obstetrics & Gynecology
DX: Z32.01 Encounter for pregnancy test, result positive (principal)
CPT/HCPCS: 36415; 84702

== ENCOUNTER 2024-09-15 09:26 | Emergency (ER) | payer OTHER, SELFPAY ==
[2024-09-15 09:59] VITALS: BP 117/72; PULSE 96; RESP 18; TEMP 37.2; O2SAT 100; BMI 29.5
[2024-09-15 10:05] LABS: Apearance,Urine Cloudy (Clear); Bilirubin,Urine Negative (Negative); Blood, Urine Negative (Negative); Color,Urine Dark Yellow (Yellow); Glucose,Urine (UA) Negative (Negative); Ketones,Urine TRACE (Negative); Protein,Urine Negative (Negative); UTC Leukocyte Esterase,Urine 1+ (Negative); UTC Nitrate,Urine Negative (Negative); Urobilinogen,Urine 1 EU/dl (0.2)
--- NOTE | 2024-09-15 10:12 | ED_ITS ---
Discharge Plan Disposition Patient Disposition: Home, Self-Care Condition: Good Prescriptions Prescriptions: New cephalexin 500 mg tablet 500 mg PO BID 7 Days Qty: 14 0RF Referrals Follow up/Referrals: Eligio Greco MD [Primary Care Provider] - See instructions Activity Restrictions/Add. Instructions Additional Instructions/Restrictions: Increase fluids, water and not soda or tea. Can drink cranberry juice or cranberry extract. Wipe front to back Wear cotton underwear Empty bladder after intercourse Start antibiotics immediately and make sure you take the full course although you may start to see improvement over the next 48 hours. You can eat yogurt or take probiotics to decrease diarrhea or yeast infection caused by the antibiotic Be sure to follow-up anytime for new or worsening symptoms in 48 hours If symptoms worsen or do not improve return or be seen in the ER. Follow-up with primary care this week. Clinical Impressions Clinical Impression: UTI (urinary tract infection) Instructions Patient Instructions: DI for Urinary Tract Infection (UTI) Print Language Print Language: Maltese Discharge ED Provider: Janet Hull [facility] HPI General Stated complaint: Pain and frequent urination Mode of Arrival: Ambulatory Source of Information: Patient Time Seen by Provider: 09/15/24 10:11 Description of Symptoms (Recalled from Triage Doc. by RN): PT IS 3 WEEKS , HAVING UTI S/S, BURNING HEENT Symptoms (Recalled from RN notes): No Resp Symptoms (Recalled from RN notes): No Skin Symptoms (Recalled from RN notes): No MS Symptoms (Recalled from RN notes): No Functional Status (Recalled from RN notes): WNL History of Present Illness Provider Complaint: 18-year-old female presents for complaints of burning with urination for 3 days. Patient states she is 3 weeks . Related Data Previous Rx's ?Medication ?Instructions ?Recorded cephalexin 500 mg tablet 500 mg PO BID 7 days #14 tabs 09/15/24 Allergies Allergy/AdvReac Type Severity Reaction Status Date / Time Penicillins (PENICILLINS) Allergy Unknown Anaphylaxis Verified 04/11/24 11:09 coconut Allergy Verified 04/24/24 11:41 Sulfa (Sulfonamide Allergy Anaphylaxis Verified 04/11/24 11:09 Antibiotics) Worker's Comp Is this a Worker's Comp case?: No [facility] Disclaimer: The information contained in this section may have been updated after the patient was seen, as this information can be updated by other users. 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) Heavy menstrual bleeding Palpitations Insomnia Encephalopathy Syncope and collapse anemia Alpha thalassemia silent carrier History of rectal fissure Benign liver cyst Asthma Atypical chest pain Gastroenteritis Surgical History , TANKROOM TENDER) S/P History of rectal surgery History of mandibular surgery Family History , TANKROOM TENDER) Substance abuse Mother Father Idiopathic pulmonary fibrosis Family/Other Coronary artery disease Family/Other Heart attack Family/Other FHx: mental illness Mother Father Cancer Family/Other Social History , TANKROOM TENDER) Smoking Status: Never smoker how long ago did patient quit smoking: vape second hand exposure: No alcohol intake: never substance use type: other details: cbd gummies current occupational status: unemployed and student Travel in the last 8 weeks: Inside the [facility] adopted: Yes household members: adopted family housing: house lives independently: No marital status: single service: No 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 current occupational exposures/hazards: Yes Hx Recent Travel: No sexually active: No caffeine: Yes Have you lived/traveled outside US in past 30 days?: No Contact w/someone who lives/traveled outside US past 30 days?: No Exposure to someone with infectious disease in past 14 days?: No Do you have a fever (greater than 100.4 F or 38 C)?: No Have you tested positive for COVID-19: No Exposed to someone with COVID-19 in past 14 days?: No Do you have a sore throat?: No Do you have a cough?: No Do you have any weakness?: No Do you have any diarrhea?: No Are you experiencing any unusual bleeding?: No Do you have any muscle aches/pain?: No Do you have any abdominal pain?: No Are you experiencing loss of taste or smell?: No ROS Obtained: Yes Systems reviewed as appropriate & no additional complaints except as documented Genitourinary Female Genitourinary: Reports system reviewed and no additional complaints, except as documented, Reports as per HPI and Reports dysuria Physical Exam General General appearance: alert and in no apparent distress Eye Eye exam: Present normal appearance ENT ENT exam: Present normal exam Respiratory Respiratory exam: Present normal lung sounds bilaterally Cardiovascular Cardiovascular exam: Present regular rate and normal rhythm Abdominal Exam Abdominal exam: Present soft and normal bowel sounds Neurological Exam Neurological exam: Present alert and oriented X3 Skin Skin exam: Present warm and intact Medical Decision Making Medical Records Medical records reviewed: Yes I reviewed the patient's medical records. Screening: Per USPSTF and CDC recommendations, given the prevalence of disease in our region, it is our hospital?s policy to screen for HIV and viral Hepatitis for all patients aged 18 and over and those with ongoing risk factors. Maksim Inquiry Pt receiving controlled substance: No Vital Signs: 09/15/24 09:59 Temperature 98.9 F Temperature Source Oral Pulse Rate [Left Radial] 96 H Respiratory Rate 18 Blood Pressure [Left Arm] 117/72 Blood Pressure Mean [Left Arm] 87 02 Sat by Pulse Oximetry 100 Lab Data Lab results reviewed: Yes I reviewed the patient's lab results. Lab Results 09/15/24 10:01: Urine Color Dark yellow, Urine Appearance Cloudy, Urine pH 7.0, Ur Specific [place] 1.030, Urine Protein Negative, Urine Glucose (UA) Negative, Urine Ketones Trace, Urine Blood Negative, Urine Nitrate Negative, Urine Bilirubin Negative, Urine Urobilinogen 1, Ur Leukocyte Esterase 1+ A Orders (Tests/Meds): ORDERS Category Date Time Status Urine Culture Stat Micro 09/15/24 09:55 Received
[2024-09-15 10:20] VITALS: BP 117/72; PULSE 96; RESP 18; TEMP 37.2
== END 2024-09-15 10:22 | disposition home or self-care (01) ==
PROVIDERS: Emergency Provider Nurse Practitioner Family; PCP Internal Medicine Adolescent Medicine
DX: N39.0 Urinary tract infection, site not specified (principal)
CPT/HCPCS: 81003; 87086; 99212; G0381

== ENCOUNTER 2024-09-25 10:47 | Emergency (ER) | payer OTHER, SELFPAY ==
[2024-09-25 12:59] VITALS: BP 150/91; PULSE 74; RESP 18; TEMP 36.8; O2SAT 100; BMI 29.5
--- NOTE | 2024-09-25 13:05 | EXP.UTC ---
Discharge Plan Disposition Patient Disposition: Home, Self-Care Condition: Good Prescriptions Prescriptions: New oseltamivir [Tamiflu] 75 mg capsule 75 mg PO BID 5 Days Qty: 10 0RF No Action promethazine 25 mg tablet 25 mg PO Q6H PRN (Reason: nausea and vomiting) Qty: 30 0RF cephalexin 500 mg tablet 500 mg PO BID 7 Days Qty: 14 0RF Referrals Follow up/Referrals: Eligio Greco MD [Primary Care Provider] - See instructions Activity Restrictions/Add. Instructions Additional Instructions/Restrictions: Drink plenty of fluids. Take tylenol for pain or fever. Take the medications as directed. Follow up with your regular doctor. GO TO THE ER FOR ANY WORSENING SYMPTOMS Clinical Impressions Clinical Impression: Acute viral syndrome, Influenza Stand Alone Forms Stand Alone Forms: Work/School Release Instructions Patient Instructions: DI for Influenza -- Adult, Oseltamivir Print Language Print Language: Chinese Discharge ED Provider: Timothy Singleton [facility] HPI General Stated complaint: congestion, cough, sore throat, chills, h/a Mode of Arrival: Ambulatory Source of Information: Patient Time Seen by Provider: 09/25/24 13:05 Description of Symptoms (Recalled from Triage Doc. by RN): FEVER, BA, SORE THROAT HEENT Symptoms (Recalled from RN notes): No Resp Symptoms (Recalled from RN notes): Yes Skin Symptoms (Recalled from RN notes): No MS Symptoms (Recalled from RN notes): No Functional Status (Recalled from RN notes): WNL Related Data Previous Rx's ?Medication ?Instructions ?Recorded cephalexin 500 mg tablet 500 mg PO BID 7 days #14 tabs 09/15/24 promethazine 25 mg tablet 25 mg PO Q6H PRN nausea and 09/24/24 vomiting #30 tabs oseltamivir 75 mg capsule (Tamiflu) 75 mg PO BID 5 days #10 caps 09/25/24 Allergies Allergy/AdvReac Type Severity Reaction Status Date / Time Penicillins (PENICILLINS) Allergy Unknown Anaphylaxis Verified 04/11/24 11:09 coconut Allergy Verified 04/24/24 11:41 Sulfa (Sulfonamide Allergy Anaphylaxis Verified 04/11/24 11:09 Antibiotics) Worker's Comp Is this a Worker's Comp case?: No [facility] Disclaimer: The information contained in this section may have been updated after the patient was seen, as this information can be updated by other users. 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) Substance abuse Mother Father Idiopathic pulmonary fibrosis Family/Other Coronary artery disease Family/Other Heart attack Family/Other FHx: mental illness Mother Father Cancer Family/Other Social History , 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) Smoking Status: Never smoker how long ago did patient quit smoking: vape second hand exposure: No alcohol intake: never substance use type: other details: cbd gummies current occupational status: unemployed and student Travel in the last 8 weeks: Inside the [facility] adopted: Yes household members: adopted family housing: house lives independently: No marital status: single service: No 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 current occupational exposures/hazards: Yes Hx Recent Travel: No sexually active: No caffeine: Yes Have you lived/traveled outside US in past 30 days?: No Contact w/someone who lives/traveled outside US past 30 days?: No Exposure to someone with infectious disease in past 14 days?: No Do you have a fever (greater than 100.4 F or 38 C)?: No Have you tested positive for COVID-19: No Exposed to someone with COVID-19 in past 14 days?: No Do you have a sore throat?: Yes Do you have a cough?: Yes Do you have any weakness?: No Do you have any diarrhea?: No Are you experiencing any unusual bleeding?: No Do you have any muscle aches/pain?: Yes Do you have any abdominal pain?: No Are you experiencing loss of taste or smell?: No ROS Obtained: Yes All systems reviewed & no additional complaints except as documented Constitutional Constitutional: Reports chills and Reports fever(s) Eyes Eyes: Denies eye discharge ENT Ears, Nose, Mouth, and Throat: Reports as per HPI Cardiovascular Cardiovascular: Denies chest pain Respiratory Respiratory: Denies chest congestion and Reports cough Gastrointestinal Gastrointestingal: Reports nausea; Denies abdominal pain, constipation, cramping, diarrhea or vomiting Musculoskeletal Musculoskeletal: Denies arthralgias Integumentary/Breasts Skin/Breast: Denies rash Neurologic Neurologic: Denies paresthesias Physical Exam General General appearance: alert and in no apparent distress Head Head exam: atraumatic, normocephalic and normal inspection Eye Eye exam: Present normal appearance, PERRL and EOMI ENT ENT exam: Present normal exam, normal oropharynx, mucous membranes moist, TM's normal bilaterally and normal external ear exam Neck Neck exam: Present normal inspection, full ROM and trachea midline; Absent meningismus or lymphadenopathy Chest Chest inspection: Present normal inspection and symmetric chest wall rise; Absent tenderness Respiratory Respiratory exam: Present normal lung sounds bilaterally; Absent respiratory distress Cardiovascular Cardiovascular exam: Present regular rate and normal rhythm; Absent JVD Abdominal Exam Abdominal exam: Present soft and normal bowel sounds; Absent distention, tenderness or guarding Extremities Exam Extremities exam: Present normal inspection, full ROM and normal capillary refill; Absent calf tenderness Back Exam Back exam: Present normal inspection; Absent tenderness Neurological Exam Neurological exam: Present alert and oriented X3 Psychiatric Psychiatric exam: Present normal affect and normal mood Skin Skin exam: Present warm, dry, intact and normal color Lymphatic Lymphatic Findings: no adenopathy Medical Decision Making Medical Records Medical records reviewed: No I reviewed the patient's medical records. Screening: Per USPSTF and CDC recommendations, given the prevalence of disease in our region, it is our hospital?s policy to screen for HIV and viral Hepatitis for all patients aged 18 and over and those with ongoing risk factors. Maksim Inquiry Pt receiving controlled substance: No Vital Signs: 09/25/24 12:59 Temperature 98.3 F Temperature Source Oral Pulse Rate [Left Radial] 74 Respiratory Rate 18 Blood Pressure [Left Arm] 150/91 H Blood Pressure Mean [Left Arm] 110 02 Sat by Pulse Oximetry 100 Lab Data Lab results reviewed: Yes I reviewed the patient's lab results.
[2024-09-25 13:10] LABS: UTC Strep Screen (Rapid) Negative (Negative)
[2024-09-25 13:11] LABS: UTC Influenza A Antigen Negative (Negative); UTC Influenza B Antigen Negative (Negative)
[2024-09-25 13:29] VITALS: BP 150/91; PULSE 74; RESP 18; TEMP 36.8
[2024-09-25 13:38] LABS: Coronavirus 19, PCR Not Detected (NotDetected); Human Rhinovirus Not Detected (NotDetected); Influenza A, PCR Not Detected (NotDetected); Influenza B, PCR Not Detected (NotDetected); Respiratory Syncytial Virus Not Detected (NotDetected)
== END 2024-09-25 13:37 | disposition home or self-care (01) ==
PROVIDERS: Emergency Provider Nurse Practitioner Family; PCP Internal Medicine Adolescent Medicine
DX: J10.1 Influenza due to other identified influenza virus with other respiratory manifestations (principal); B34.9 Viral infection, unspecified
CPT/HCPCS: 87631; 87804; 87880; 99213; G0381

== ENCOUNTER 2024-12-10 21:50 | Observation (INO) | payer OTHER, SELFPAY ==
--- NOTE | 2024-12-10 21:55 | PC.NURSE ---
Pt arrived to unit via stretcher by [facility] ambulance at this time.
--- NOTE | 2024-12-10 21:55 | PC.NURSE ---
Spoke with Dr. Arceo via phone about pt pending arrival. Orders received for transvaginal US and beta HCG quant once pt arrives. Order r/v.
[2024-12-10 22:00] VITALS: BP 134/76; PULSE 81; RESP 16; TEMP 36.8; O2SAT 100
[2024-12-10 22:13] VITALS: BMI 30.4
--- NOTE | 2024-12-10 22:14 | US_ITS ---
PROCEDURE INFORMATION: Exam: US Duplex Artery and Vein of the Abdominal and/or Reproductive Organs. Complete Ovaries Exam date and time: 12/10/2024 10:48 PM Age: 19 years old Clinical indication: Other: Heavy bleeding with clots; Additional info: Vaginal bleeding, possible retained product TECHNIQUE: Imaging protocol: Real-time duplex ultrasound scan of the arterial and venous flow with color Doppler flow and spectral waveform analysis with image documentation. Duplex exam was performed to evaluate for torsion and other vascular conditions. Total images: [id number] COMPARISON: CT ABDOMEN PELVIS W CON 11/24/2022 7:52 AM FINDINGS: Right ovary/adnexa: Normal arterial and venous Doppler waveforms in the ovary. No ovarian torsion. Left ovary/adnexa: Normal arterial and venous Doppler waveforms in the ovary. No ovarian torsion. IMPRESSION: Normal ovarian arterial and venous vascular flow. No evidence ovarian torsion. PROCEDURE INFORMATION: Exam: US Pelvis, Transvaginal, Non-Obstetric Exam date and time: 12/10/2024 10:48 PM Age: 19 years old Clinical indication: Other: Heavy bleeding with clots; Additional info: Vaginal bleeding, possible retained product TECHNIQUE: Imaging protocol: Real-time transvaginal pelvic (non-obstetric) ultrasound with image documentation. Transvaginal imaging was used for better evaluation of the endometrium, adnexa, and/or cervix. COMPARISON: US OB TRANSVAGINAL 05/08/2023 1:37 PM FINDINGS: Uterus: Retroverted uterus measuring 7.7 x 5.4 x 6.0 cm. Homogeneous myometrium. No uterine mass. Very thickened and irregular endometrium at 3.7 cm. Areas of Doppler hyperemia within the thickened irregular endometrium. Right ovary/adnexa: Normal right ovary measuring 3.6 x 2.5 x 1.7 cm with volume of 7.8 cc. Left ovary/adnexa: Normal left ovary measuring 2.0 x 2.3 x 0.9 cm with volume of 2.0 cc. Intraperitoneal space: Small quantity free pelvic fluid. No adnexal mass. IMPRESSION: 1. Very thickened and heterogeneous endometrium up to 3.7 cm. Differential includes endometrial neoplasm and polypoid change. Findings much greater than expected for routine hyperplasia. Associated areas of Doppler hyperemia. Prior to intervention, recommend follow-up nonemergent pelvic MRI. 2. Retroverted nonenlarged uterus 3. Normal bilateral ovaries 4. Small quantity free pelvic fluid is considered physiologic.
[2024-12-10 23:21] LABS: HCG,Quantitative 9 mIU/ml (0-5.42)
--- NOTE | 2024-12-10 23:28 | PC.NURSE ---
Spoke with Dr. Arceo and informed her of US findings of some retained product and HCG beta quant of 9. Order received to keep pt overnight for observation, NPO after midnight. Order r/v.
--- NOTE | 2024-12-10 23:52 | PC.NURSE ---
Pt reports some cramping and nausea. Requesting something to help with this. Spoke with Dr. Arceo at this time. See MAR for med orders and admin this shift.
[2024-12-11] VITALS (21 sets, daily range): BP systolic 99–151; BP diastolic 53–90; PULSE 61–95; RESP 13–18; TEMP 36.2–37.1; O2SAT 95–100
[2024-12-11] MEDS: KETOROLAC 30MG/ML VIAL 30 MG IV ×3 (00:39→14:03)
[2024-12-11] MEDS: ONDANSETRON 4MG/2ML VIAL 4 MG IV ×3 (00:40→22:29)
--- NOTE | 2024-12-11 03:13 | PC.NURSE ---
Pt called out to nurse's station reporting cramping pain 05/01 and requesting more pain medication. Dr. Arceo informed. Verbal orders received. Order r/v. See OCT.
--- NOTE | 2024-12-11 03:22 | PC.NURSE ---
Telephone orders received from for AM labs. Order r/v. See orders.
[2024-12-11] MEDS: HYDROMORPHONE 2MG/ML SYRINGE 1 MG IV ×3 (03:44→15:29)
--- NOTE | 2024-12-11 04:08 | PC.NURSE ---
Report received from Analilia Alonso RN at [facility] prior to patient arrival.
[2024-12-11 07:02] LABS: Basophils % 0.5 % (0.1-2.0); Eosinophils # 0.1 Kmm3 (0.0-0.4); Eosinophils % 1.4 % (0.1-12.0); Hematocrit 35.2 % (37.0-47.0); Hemoglobin 11.4 g/dL (12.2-16.2); Lymphocytes # 1.7 K/mm3 (0.7-4.5); Lymphocytes % 40.7 % (10-50); Mean Corpuscular HGB Conc 32.4 g/dL (31.8-35.4); Mean Corpuscular Hemoglobin 26.9 pg (27.0-31.2); Mean Platelet Volume 12.3 fl (7.4-10.4); Monocytes # 0.5 K/mm3 (0.1-1.0); Monocytes % 11.2 % (1.7-9.3); Nucleated Red Blood Cells # 0 10^3/uL; Nucleated Red Blood Cells % 0 %; Platelet Count 166 K/mm3 (142-424); Red Blood Count 4.24 M/mm3 (4.20-5.40); Red Cell Distribution Width 14.3 % (11.5-17.5); Red Cell Distribution Width-SD 43.3 fL; White Blood Count 4.3 K/mm3 (4.8-10.8)
--- NOTE | 2024-12-11 07:16 | PC.NURSE ---
Report given to Beto Ferrer RN
[2024-12-11 07:17] LABS: Albumin Level 4.1 g/dl (3.5-5.0); Chloride 111 mmol/L (98-107); Sodium 140 mmol/L (136-145)
[2024-12-11 07:19] LABS: Blood Urea Nitrogen 5 mg/dl (7-17)
[2024-12-11 07:20] LABS: Alanine Aminotransferase 11 U/L (12-78); Albumin/Globulin Ratio 1.5 (1.1-1.8); Alkaline Phosphatase 66 U/L (38-126); Aspartate Amino Transferase 21 U/L (14-36); Bilirubin,Total 0.3 mg/dl (0.2-1.3); Calcium 8.8 mg/dl (8.4-10.2); Carbon Dioxide 23 mmol/L (22.0-30.0); Creatinine Clearance Estimated 182 mL/min (50-200); Estimated Glomerular Filt Rate 106 ml/min (>60); GFR (African American) 128 ML/MIN (>60); Globulin 2.7 g/dL (1.3-3.2); Glucose 92 mg/dl (74-100); Total Protein,Serum 6.8 g/dl (6.3-8.2)
--- NOTE | 2024-12-11 08:41 | PC.NURSE ---
Medicated with Dilaudid 1mg IV for pain of 8/10 in lower abdomen. Reports still having heavy vaginal bleeding. States she is changing her josafat-pad q 1-2 hrs. Denies any blood clots.
--- NOTE | 2024-12-11 08:50 | PC.NURSE ---
AT BS DISCUSSING POC AND DNC PROCEDURE WITH PT. PT VERBALIZING UNDERSTANDING.
--- NOTE | 2024-12-11 09:15 | PC.NURSE ---
SURGERY CONSENT SIGNED AND WITNESSED.
--- NOTE | 2024-12-11 09:39 | P.HP_ITS ---
History of Present Illness *Admission Date: 12/11/24 *Reason for visit:: Retained products of conception *History of present illness: Ms Sydney Dykes is a 19 yo P[address] [facility] L&D from [facility] ED for heavy uterinel bleeding s/p elective . She went to [place], [place] on October 25, 2024 for surgical elective . She states she bled for two days after but it was dark red and she thought it was her period. She had no bleeding or pain until last night. She was sitting with her grandmother and had a large gush of bright bred blood with clots. She denies fever/chills, chest pain and shortness of breath. When she arrived to [facility] bleeding had slowed to a trickle. However, as the night progressed she began to have abdominal pain, 8 out of 10, requiring Dilaudid. She had some nausea last night after eating but no nausea or vomiting this morning. She admits to some vaginal bleeding but nothing like last night. She denies lightheadedness/dizziness. [facility] Disclaimer: The information contained in this section may have been updated after the patient was seen, as this information can be updated by other users. 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) Substance abuse Mother Father Idiopathic pulmonary fibrosis Family/Other Coronary artery disease Family/Other Heart attack Family/Other FHx: mental illness Mother Father Cancer Family/Other Social History Smoking Status: Never smoker how long ago did patient quit smoking: vape second hand exposure: No alcohol intake: never substance use type: other details: cbd gummies current occupational status: unemployed and student Travel in the last 8 weeks: Inside the [place] adopted: Yes household members: adopted family housing: house lives independently: No marital status: single service: No 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 current occupational exposures/hazards: Yes Hx Recent Travel: No sexually active: No caffeine: Yes Have you lived/traveled outside US in past 30 days?: No Contact w/someone who lives/traveled outside US past 30 days?: No Exposure to someone with infectious disease in past 14 days?: No Do you have a fever (greater than 100.4 F or 38 C)?: No Have you tested positive for COVID-19: No Exposed to someone with COVID-19 in past 14 days?: No Do you have a sore throat?: No Do you have a cough?: No Do you have any weakness?: No Do you have any diarrhea?: No Are you experiencing any unusual bleeding?: No Do you have any muscle aches/pain?: No Do you have any abdominal pain?: No Are you experiencing loss of taste or smell?: No Other 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 Have you received the Flu Vaccine for this season: No Have you received the Pneumonia Vaccine: No Review of Systems Review of Systems Review of systems:: pertinent systems reviewed and negative unless documented be low *Genitourinary Genitourinary: Reports abnormal vaginal bleeding and Reports pelvic pain Meds Home Medications and Allergies Home Medications ?Medication ?Instructions ?Recorded ?Confirmed ?Type No Known Home Medications 12/11/24 12/11/24 History New Prescriptions to Start Prescriptions: Allergies Allergy/AdvReac Type Severity Reaction Status Date / Time Penicillins (PENICILLINS) Allergy Unknown Anaphylaxis Verified 04/11/24 11:09 coconut Allergy Verified 04/24/24 11:41 Sulfa (Sulfonamide Allergy Anaphylaxis Verified 04/11/24 11:09 Antibiotics) Exam Data for Last 24 hours Vital signs and Labs for Last 24 Hours: Temp Pulse Resp BP Pulse Ox O2 Del Method 98.8 F 67 18 118/65 97 Room Air 12/11/24 08:30 12/11/24 08:30 12/11/24 08:30 12/11/24 08:30 12/11/24 09:07 12/11/24 09:07 Laboratory Results - last 24 hr 12/10/24 22:30: HCG, Quant 9 H 12/11/24 06:20: WBC 4.3 L, RBC 4.24, Hgb 11.4 L, Hct 35.2 L, MCV 83.0, MCH 26.9 L, MCHC 32.4, RDW 14.3, Plt Count 166, MPV 12.3 H, Neut % (Auto) 46.0, Lymph % (Auto) 40.7, [place] % (Auto) 11.2 H, Eos % (Auto) 1.4, Baso % (Auto) 0.5, Neut # (Auto) 2.0, Lymph # (Auto) 1.7, [place] # (Auto) 0.5, Eos # (Auto) 0.1, Baso # (Auto) 0.0, Sodium 140, Potassium 4.0, Chloride 111 H, Carbon Dioxide 23, Anion Gap 10.0, BUN 5 L, Creatinine 0.70, Estimated Creat Clear 182, Estimated GFR 106, Est GFR ( Amer) 128, Glucose 92, Calcium 8.8, Total Bilirubin 0.3, AST 21, ALT 11 L, Alkaline Phosphatase 66, Total Protein 6.8, Albumin 4.1, Globulin 2.7, Albumin/Globulin Ratio 1.5 I & O for Last 24 hours: Intake & Output 12/08/24 12/09/24 12/10/24 12/11/24 23:59 23:59 23:59 23:59 Output Total 0 / 0 Balance 0 / 0 Weight 200 lb Constitutional Constitutional: no acute distress and cooperative *Routine HEENT Exam Head: Present normocephalic Eye: Absent conjunctivae pink ENT: Present mucous membranes moist *Routine Neck Exam Neck: Present full ROM *Routine Respiratory Exam Respiratory: Present CTA bilaterally and normal respiratory effort *Routine Cardiovascular Exam Cardiovascular: Present RRR *Routine Abdominal Exam Abdominal: Present soft; Absent tenderness or distended *Routine Rectal Exam Rectal:: deferred *Routine Genitalia Exam Genitalia:: normal female *Routine Extremities Exam Extremities: Present full ROM; Absent edema or calf tenderness Routine Psychiatric Exam Psychiatric: Present normal affect and cooperative Assessment and Plan *Assessment and plan (1) Retained products of conception after induced termination of : Problem Comment: Elective in [place], [place] on October 25, 2024 Status: Acute Category: Medical Code(s): O07.4 - Failed attempted termination of without complication Plan Pelvic ultrasound demonstrated very thickened and heterogeneous endometrium up to 3.7 cm. Differential includes endometrial neoplasm and polypoid change. Findings much greater than expected for routine hyperplasia. Associated areas of Doppler hyperemia. Beta hcg quant 9 on 12/10/24 Vital signs stable, afebrile WBC 4.3 Discussed ultrasound findings and discussed suction dilation and curettage. Discussed surgery in detail. Discussed risks, benefits, alternatives, expectations and possible complications of surgery. Risks include but are not limited to bleeding; infection; uterine perforation, uterine synechiae which could lead to infertility; damage to adjacent structures (bowel, bladder, nerves, blood vessels, etc) (possibly requiring further intervention and/or longer hospital stay); VTE; risks with anesthesia; and risk of . All questions addressed and answered. Patient voiced understanding of risks and possible complications. Patient desires to proceed with surgery. Consent form signed. To OR for [place] suction dilation and curettage She reports she desires IUD for contraception. Will plan on inserting IUD 4-6 weeks postoperatively
--- NOTE | 2024-12-11 11:29 | PC.NURSE ---
Surgery staff x3 here to take pt to pre-op via bed.
--- NOTE | 2024-12-11 11:40 | EXP.ANES.CKL ---
[facility] Disclaimer: The information contained in this section may have been updated after the patient was seen, as this information can be updated by other users. 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 Retained products of conception after induced termination of Elective anemia Alpha thalassemia silent carrier Palpitations Insomnia Encephalopathy History of rectal fissure Benign liver cyst Asthma Syncope and collapse Atypical chest pain Gastroenteritis Heavy menstrual bleeding Surgical History S/P History of rectal surgery History of mandibular surgery Family History Mother FHx: mental illness Substance abuse Father FHx: mental illness Substance abuse Family/Other Heart attack Coronary artery disease Family/Other Cancer Family/Other Idiopathic pulmonary fibrosis Social History Smoking Status: Never smoker how long ago did patient quit smoking: vape second hand exposure: No alcohol intake: never substance use type: other details: cbd gummies current occupational status: unemployed and student Travel in the last 8 weeks: Inside the [facility] adopted: Yes household members: adopted family housing: house lives independently: No marital status: single service: No 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 current occupational exposures/hazards: Yes Hx Recent Travel: No sexually active: No caffeine: Yes Have you lived/traveled outside US in past 30 days?: No Contact w/someone who lives/traveled outside US past 30 days?: No Exposure to someone with infectious disease in past 14 days?: No Do you have a fever (greater than 100.4 F or 38 C)?: No Have you tested positive for COVID-19: No Exposed to someone with COVID-19 in past 14 days?: No Do you have a sore throat?: No Do you have a cough?: No Do you have any weakness?: No Do you have any diarrhea?: No Are you experiencing any unusual bleeding?: No Do you have any muscle aches/pain?: No Do you have any abdominal pain?: No Are you experiencing loss of taste or smell?: No [facility] Anesthesia Checklist Patient Identification Patient Identification: Arm Band and Verbal (Name & ) Structural Data Admitted From: Inpatient Planned Operative Procedure/s: D&C Consent for Planned Operative Procedure(s) Verified: Yes Verified Documents: Surgical Consent and History and Physical NPO Status Verified Time NPO: 00:00 Additional verifications Anesthesia Reactions: No Airway Assessment Mallampati Score:: Class I Neurological Assessment Level of Consciousness: Awake, Alert and Appropriate Hx Seizures: No Anesthesia Plan Anesthesia Risk discussed: Yes Anesthesia Plan: Verified ASA Class: II Anesthesia Type: General
--- NOTE | 2024-12-11 13:02 | P.OP_ITS ---
Date of procedure: 12/11/24 Pre-op Diagnosis:: 1. Retained products of conception Post-op Diagnosis:: 1. Retained products of conception Procedure performed:: Dilation and curettage Surgeon:: Loida Arceo DO Hand Cutter(s):: N/a ELECTRONIC PUBLISHING SPECIALIST:: Other (Yonathan Bonilla) Anesthesia: GETA Estimated blood loss (mL): 30 Clinical Note:: Ms Sydney Dykes is a 19 yo P1011 transferred to [facility] L&D from [facility] for heavy uterinel bleeding s/p elective . She went to [place], [place] on October 25, 2024 for surgical elective . She states she bled for two days after but it was dark red and she thought it was her period. She had no bleeding or pain until last night. She was sitting with her grandmother and had a large gush of bright bred blood with clots. She denies fever/chills, chest pain and shortness of breath. When she arrived to [facility] bleeding had slowed to a trickle. However, as the night progressed she began to have abdominal pain, 8 out of 10, requiring Dilaudid. She had some nausea last night after eating but no nausea or vomiting this morning. She admits to some vaginal bleeding but nothing like last night. She denies lightheadedness/dizziness. Pelvic ultrasound demonstrated very thickened and heterogeneous endometrium up to 3.7 cm. Differential includes endometrial neoplasm and polypoid change. Findings much greater than expected for routine hyperplasia. Associated areas of Doppler hyperemia. Beta hcg quant 9 on 12/10/24 Operative findings:: 1. Uterus midposition, retroverted, about 6 week size. No adnexal masses palpated Operative note:: Risks, benefits and alternatives were discussed with the patient. Risks include but are not limited to bleeding, infection, uterine perforation and VTE. Patient voiced understanding and agreed to proceed. She was wheeled back to the operating room and placed under general anesthesia without difficulty. She was placed in dorsal lithotomy position and prepped and draped in the normal sterile fashion. Straight catheter was used to drain the bladder. A bimanual exam was performed. A weighted Auvard was placed in the vaginal vault. Single tooth tenaculum was placed on anterior lip of the cervix. Uterus sounded to 11. Sequential James dilators were used to dilate the cervical os. [place] suction was set to 40 mm Hg. Attempted to advace size 8 mm curved ethiopian suction curettage into the uterine cavity without success secondary to retroverted state of uterus. The endometrial cavity was curetted with a gentle systematic [id number] movement of the curette removing products of conception. Specimen will be sent to pathology for review.?Instruments were removed from the vagina. Tenaculum site was noted to oozing. Silver nitrate stick x 2 applied to tenaculum site. Hemostasis was noted. Oozing from cervical os. Surgicel snow was packed gently into inside external os. Very light bleeding noted. Patient was awaken from anesthesia without difficulty. She was transported to recovery room in stable condition. Condition: stable Disposition: floor Specimens:: 1. Products of conception Complications:: None
--- NOTE | 2024-12-11 13:07 | P.PNANES_ITS ---
[facility] Anesthesia Record Part I Anesthesia Record I Intake, IV Amount: 600 Hydration: Adequate Estimated blood loss (mL): 30 Urine output (mL): 0 Blood Products used (#): none Blood Pressure: 99/56 SaO2: 96 Pulse Rate: 63 Airway Patency: Patent Respiratory Rate: 13 Temperature: 97.2 F Patient is:: Stable and Somnolent Stable to PACU at:: 13:02
[2024-12-11] MEDS: HYDROMORPHONE 2MG/ML SYRINGE 0.5 MG IV ×4 (13:15→13:30)
[2024-12-11] MEDS: MEPERIDINE 25MG/ML 1ML SYRINGE 12.5 MG IV (13:30)
--- NOTE | 2024-12-11 13:36 | PC.NURSE ---
Report received from ROSY Jennings.
--- NOTE | 2024-12-11 13:45 | PC.NURSE ---
Pt back to unit / room 280 from PACU via bed with sx staff x2.
--- NOTE | 2024-12-11 14:10 | INFXCTL.NOTE ---
Chux changed (1 chux = 101gms
--- NOTE | 2024-12-11 15:50 | PC.NURSE ---
called to check on pt. updated on status, vag bleeding and need for pain control. VU. Phone order received to D/C Dilaudid and change to [place] 5/325 po 1 tab q4hr prn and Schedule Ibuprofen 800mg PO q 8hrs. R/v.
--- NOTE | 2024-12-11 17:25 | PC.NURSE ---
here to see pt.
[2024-12-11] MEDS: HYDROCODONE/APAP 5/325 MG TABLET 1 TAB PO ×2 (17:33→21:36)
--- NOTE | 2024-12-11 18:19 | PC.NURSE ---
Medicated with Zofran 4mg IV for nausea.
--- NOTE | 2024-12-11 19:19 | PC.NURSE ---
Report given to ROSY Gill.
--- NOTE | 2024-12-11 19:30 | PC.NURSE ---
Patient resting in bed with eyes open, denies any needs at this time. Call light within reach
[2024-12-11] MEDS: IBUPROFEN 400 MG TABLET 800 MG PO (21:35)
--- NOTE | 2024-12-11 21:35 | PC.NURSE ---
Ibuprofen and Loratab given. Pt rates pain 6/10. Patient reports scant bleeding but not filling a pad. Call light within reach
--- NOTE | 2024-12-11 23:02 | PC.NURSE ---
pt resting, reports nausea improved. Call light within reach.
--- NOTE | 2024-12-12 01:10 | PC.NURSE ---
Patient sleeping on right side. respirations even and unlabored. Call light within reach, no distress noted
--- NOTE | 2024-12-12 03:05 | PC.NURSE ---
Patient sleeping on right side. respirations even and unlabored. Call light within reach, no distress noted
[2024-12-12] MEDS: ONDANSETRON 4MG/2ML VIAL 4 MG IV (03:55)
[2024-12-12] MEDS: HYDROCODONE/APAP 5/325 MG TABLET 1 TAB PO (03:55)
[2024-12-12 04:15] VITALS: O2SAT 97
--- NOTE | 2024-12-12 05:30 | PC.NURSE ---
Patient awake watching TV, reports she has ambulated to bathroom and was able to void without difficulty. Call light within reach
[2024-12-12 06:23] LABS: Basophils % 0.1 % (0.1-2.0); Eosinophils % 0.6 % (0.1-12.0); Hematocrit 33.5 % (37.0-47.0); Hemoglobin 10.9 g/dL (12.2-16.2); Lymphocytes # 1.5 K/mm3 (0.7-4.5); Lymphocytes % 20.2 % (10-50); Mean Corpuscular HGB Conc 32.5 g/dL (31.8-35.4); Mean Corpuscular Hemoglobin 27.3 pg (27.0-31.2); Mean Corpuscular Volume 83.8 fl (81-99); Monocytes # 0.7 K/mm3 (0.1-1.0); Neutrophils # 5.1 K/mm3 (1.8-7.8); Neutrophils % 69.8 % (37.0-80.0); Nucleated Red Blood Cells # 0 10^3/uL; Nucleated Red Blood Cells % 0 %; Platelet Count 182 K/mm3 (142-424); Red Cell Distribution Width 14.3 % (11.5-17.5); Red Cell Distribution Width-SD 43.8 fL; White Blood Count 7.2 K/mm3 (4.8-10.8)
[2024-12-12] MEDS: IBUPROFEN 400 MG TABLET 800 MG PO (06:43)
--- NOTE | 2024-12-12 06:50 | PC.NURSE ---
IV to Right wrist discontinued, Patient tolerated well.
--- NOTE | 2024-12-12 06:54 | PC.NURSE ---
report given to Kortney Gannon RN
[2024-12-12 08:02] VITALS: O2SAT 100
[2024-12-12 08:06] VITALS: BP 121/67; PULSE 73; RESP 18; TEMP 37.3; O2SAT 100
--- NOTE | 2024-12-12 08:46 | EXP.DC.SUM ---
General Admission date:: 12/10/24 Discharge date: 12/12/24 HPI HPI HPI: POD # 1 s/p D&C for incomplete Resting comfortably in bed. Pain controlled with PO medication. Bleeding is appropriate. She admits to nausea. No vomiting. Voiding without difficulty. Passing flatus. Denies fever/chills, chest pain and shortness of breath. No lightheadedness or dizziness. No swelling or calf pain. Ambulating well ad henny. Hospital Course Hospital Course Hospital Course: Ms Sydney Dykes is a 19 yo P1011 transferred to [facility] L&D from [facility] for heavy uterinel bleeding s/p elective . She went to [place], [place] on October 25, 2024 for surgical elective . She states she bled for two days after but it was dark red and she thought it was her period. She had no bleeding or pain until last night. She was sitting with her grandmother and had a large gush of bright bred blood with clots. She denies fever/chills, chest pain and shortness of breath. When she arrived to [facility] bleeding had slowed to a trickle. However, as the night progressed she began to have abdominal pain, 8 out of 10, requiring Dilaudid. She had some nausea last night after eating but no nausea or vomiting this morning. She admits to some vaginal bleeding but nothing like last night. She denies lightheadedness/dizziness. Pelvic ultrasound demonstrated very thickened and heterogeneous endometrium up to 3.7 cm. Differential includes endometrial neoplasm and polypoid change. Findings much greater than expected for routine hyperplasia. Associated areas of Doppler hyperemia. Beta hcg quant 9 on 12/10/24 She underwent dilation and curettage for retained products of conception on 12/11/24. She did well postoperatively. Pain controlled. Vaginal bleeding is appropriate. Voiding without difficulty and passing flatus. Tolerating regular diet but having some nausea. Denies fever/chills, chest pain and shortness of breath. No headaches, dizziness/lightheadedness. Vital signs stable, afebrile. Heart regular rate and rhythm. Lungs clear to auscultation. Abdomen soft; mild suprapubic tenderness to palpation. No lower extremity swelling. Ambulating well ad henny. She was discharged to home on POD # 1 with instructions to follow-up in the office in 2 weeks or sooner if needed. Exam Data for Last 24 hours Vital signs and Labs for Last 24 Hours: Temp Pulse Resp BP Pulse Ox O2 Del Method 99.2 F 73 18 121/67 100 Room Air 12/12/24 08:06 12/12/24 08:06 12/12/24 08:06 12/12/24 08:06 12/12/24 08:06 12/12/24 08:06 Laboratory Results - last 24 hr 12/12/24 05:16: WBC 7.2 D, RBC 4.00 L, Hgb 10.9 L, Hct 33.5 L, MCV 83.8, MCH 27.3, MCHC 32.5, RDW 14.3, Plt Count 182, MPV 12.0 H, Neut % (Auto) 69.8, Lymph % (Auto) 20.2, [place] % (Auto) 9.0, Eos % (Auto) 0.6, Baso % (Auto) 0.1, Neut # (Auto) 5.1, Lymph # (Auto) 1.5, [place] # (Auto) 0.7, Eos # (Auto) 0.0, Baso # (Auto) 0.0 I & O for Last 24 hours: Intake & Output 12/09/24 12/10/24 12/11/24 12/12/24 23:59 23:59 23:59 23:59 Intake Total 600 / 600 Output Total 0 / 0 Balance 600 / 600 Weight 200 lb Constitutional Constitutional: no acute distress and cooperative *Routine HEENT Exam Head: Present normocephalic and atraumatic Eye: Absent conjunctivae pink ENT: Present mucous membranes moist *Routine Neck Exam Neck: Present full ROM *Routine Respiratory Exam Respiratory: Present CTA bilaterally and normal respiratory effort *Routine Cardiovascular Exam Cardiovascular: Present RRR *Routine Abdominal Exam Abdominal: Present soft and normoactive bowel sounds; Absent tenderness (mild suprapubic tenderness to palpation), distended or guarding *Routine Rectal Exam Patient deferred: visual exam *Routine Exam Patient deferred: external exam *Routine Extremities Exam Extremities: Present full ROM; Absent edema or calf tenderness Results Data Completed and Pending Labs on day of discharge: Labs from last 24 hours 12/12/24 05:16 WBC 7.2 D RBC 4.00 L Hgb 10.9 L Hct 33.5 L MCV 83.8 MCH 27.3 MCHC 32.5 RDW 14.3 Plt Count 182 MPV 12.0 H Neut % (Auto) 69.8 Lymph % (Auto) 20.2 [place] % (Auto) 9.0 Eos % (Auto) 0.6 Baso % (Auto) 0.1 Neut # (Auto) 5.1 Lymph # (Auto) 1.5 [place] # (Auto) 0.7 Eos # (Auto) 0.0 Baso # (Auto) 0.0 DS: Diagnosis Discharge Diagnosis (1) Retained products of conception after induced termination of : Status: Acute Code(s): O07.4 - Failed attempted termination of without complication Problem details: Elective in [place], [place] on October 25, 2024 Meds Home Medications and Allergies Home Medications ?Medication ?Instructions ?Recorded ?Confirmed ?Type hydrocodone 5 mg-acetaminophen 325 1 tab PO Q6H PRN pain #12 tabs 12/12/24 Rx mg tablet ibuprofen 800 mg tablet 800 mg PO Q8H PRN pain #20 tabs 12/12/24 Rx ondansetron 4 mg disintegrating 4 mg PO Q8H PRN nausea and 12/12/24 Rx tablet vomiting #20 tabs New Prescriptions to Start Prescriptions: hydrocodone-acetaminophen Loida Arceo ibuprofen Loida Arceo ondansetron Loida Arceo Allergies Allergy/AdvReac Type Severity Reaction Status Date / Time Penicillins (PENICILLINS) Allergy Unknown Anaphylaxis Verified 04/11/24 11:09 coconut Allergy Verified 04/24/24 11:41 Sulfa (Sulfonamide Allergy Anaphylaxis Verified 04/11/24 11:09 Antibiotics) Discharge Plan Disposition Patient Disposition: Home, Self-Care Condition: Good Follow up Plan Follow up with: Loida Arceo DO [Staff Physician] - 12/25/24 10:15 am Prescriptions/Medication Reconciliation: New ibuprofen 800 mg tablet 800 mg PO Q8H PRN (Reason: pain) Qty: 20 0RF hydrocodone-acetaminophen 5-325 mg tablet 1 tab PO Q6H PRN (Reason: pain) Qty: 12 0RF ondansetron 4 mg tablet,disintegrating 4 mg PO Q8H PRN (Reason: nausea and vomiting) Qty: 20 0RF Problem Reconciliation Problems Reviewed?: Yes Patient Discharge Instructions ACTIVITY: Limited activity DIET: continue same diet and regular diet Additional Instructions: Discharge: 1. Take 800 mg Ibuprofen every 8 hours as needed for pain. You can also take [place]ense 5-325 mg every 6 hours or more has needed for severe pain 2. Nothing in the vagina for 2 weeks - no intercourse, douching or tampons. No tub baths/hot tubs or swimming pools 3. Reasons to call On-Call doctor - fever (greater than 100.4) - heavy vaginal bleeding (soaking through 1 pad in less than 2 hours) - vaginal discharge (malodorous and/or purulent) Loida Arceo DO [facility] [phone] Print Language: Finnish Providers Primary Care Provider: Eligio Greco Admac Provider: Loida Arceo Attending Provider: Loida Arceo
--- NOTE | 2024-12-12 13:03 | P.PNANES_ITS ---
[facility] Anesthesia Record Part II Anesthesia Record Part II Discharge Time: 13:32 Destination: Obstetric PACU nurse assessment reviewed?: Yes Patient Condition:: Good Anesthesia Complications:: None Swallowing reflex intact?: Yes Airway Patency: Patent Cyanosis?: No Blood Pressure: 134/79 SaO2: 100 Respiratory Rate: 18 Pulse Rate: 95 Temperature: 98 F Mental Status: Alert & Oriented Pain level:: 7 Nausea and/or vomitting:: None Intake, IV Amount: 0 Hydration: Adequate
[2024-12-12 13:04] VITALS: BP 134/79; PULSE 95; RESP 18; TEMP 36.6; O2SAT 100
== END 2024-12-12 10:55 | disposition home or self-care (01) ==
PROVIDERS: Admitting Provider Obstetrics & Gynecology; PCP Internal Medicine Adolescent Medicine; Visit Provider Obstetrics & Gynecology
PROC: (CPT 58120; principal; 2024-12-11 12:00)
DX: O07.4 Failed attempted termination of pregnancy without complication (principal); Z88.0 Allergy status to penicillin; Z88.2 Allergy status to sulfonamides; Z91.018 Allergy to other foods; F17.290 Nicotine dependence, other tobacco product, uncomplicated
CPT/HCPCS: 59812; 36415; 76830; 80053; 84702; 85025; G0378; J1100; J1171; J1885; J2175; J2250; J2405; J3010

== ENCOUNTER 2024-12-19 20:31 | Emergency (ER) | payer OTHER, SELFPAY ==
--- NOTE | 2024-12-19 20:38 | ED_ITS ---
Discharge Plan Disposition Patient Disposition: Home, Self-Care Prescriptions Prescriptions: No Action ibuprofen 800 mg tablet 800 mg PO Q8H PRN (Reason: pain) Qty: 20 0RF hydrocodone-acetaminophen 5-325 mg tablet 1 tab PO Q6H PRN (Reason: pain) Qty: 12 0RF ondansetron 4 mg tablet,disintegrating 4 mg PO Q8H PRN (Reason: nausea and vomiting) Qty: 20 0RF Referrals Follow up/Referrals: Eligio Greco MD [Primary Care Provider] - See instructions Activity Restrictions/Add. Instructions Additional Instructions/Restrictions: Call your CERTIFIED COURT INTERPRETER office first thing in the morning. They are going to schedule you for an ultrasound. Please return to the ER with any new, concerning, or worsening symptoms. Clinical Impressions Clinical Impression: Abnormal vaginal bleeding Print Language Print Language: Hebrew Discharge ED Provider: Gurjit Villafana General Adult HPI General Chief complaint: Vaginal Bleeding Stated complaint: had DNC last week and she is bleeding bad Time Seen by Provider: 12/19/24 20:37 Mode of Arrival: Ambulatory Source of Information: Patient Limitations: No Limitations History of Present Illness HPI narrative: This is an otherwise healthy 19-year-old female, P1011, status post D&C on 12/11/24 presenting with vaginal bleeding and cramping. Has passed 2 large clots. Called her CERTIFIED COURT INTERPRETER who told her to present to the ER for further evaluation. States the cramping began today as well. Denies fever. Denies any other symptoms Related Data Previous Rx's ?Medication ?Instructions ?Recorded hydrocodone 5 mg-acetaminophen 325 1 tab PO Q6H PRN pain #12 tabs 12/12/24 mg tablet ibuprofen 800 mg tablet 800 mg PO Q8H PRN pain #20 tabs 12/12/24 ondansetron 4 mg disintegrating 4 mg PO Q8H PRN nausea and 12/12/24 tablet vomiting #20 tabs Allergies Allergy/AdvReac Type Severity Reaction Status Date / Time Penicillins (PENICILLINS) Allergy Unknown Anaphylaxis Verified 12/19/24 20:48 coconut Allergy Unknown Verified 12/19/24 20:48 allergy reaction Sulfa (Sulfonamide Allergy Anaphylaxis Verified 12/19/24 20:48 Antibiotics) [facility] Disclaimer: The information contained in this section may have been updated after the patient was seen, as this information can be updated by other users. 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 Retained products of conception after induced termination of Elective anemia Alpha thalassemia silent carrier Palpitations Insomnia Encephalopathy History of rectal fissure Benign liver cyst Asthma Syncope and collapse Atypical chest pain Gastroenteritis Heavy menstrual bleeding Surgical History S/P History of rectal surgery History of mandibular surgery Family History Mother FHx: mental illness Substance abuse Father FHx: mental illness Substance abuse Family/Other Heart attack Coronary artery disease Family/Other Cancer Family/Other Idiopathic pulmonary fibrosis Social History Smoking Status: Never smoker how long ago did patient quit smoking: vape second hand exposure: No alcohol intake: never substance use type: other details: cbd gummies current occupational status: unemployed and student Travel in the last 8 weeks?: Inside the [facility] adopted: Yes household members: adopted family housing: house lives independently: No marital status: single service: No 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 current occupational exposures/hazards: Yes Hx Recent Travel: No sexually active: No caffeine: Yes Have you lived/traveled outside [place] in past 30 days?: No Contact w/someone who lives/traveled outside [place] past 30 days?: No Exposure to someone with infectious disease in past 14 days?: No Do you have a fever (greater than 100.4 F or 38 C)?: No Have you tested positive for COVID-19?: No Exposed to someone with COVID-19 in past 14 days?: No Do you have a sore throat?: No Do you have a cough?: No Do you have any weakness?: No Do you have any diarrhea?: No Are you experiencing any unusual bleeding?: No Do you have any muscle aches/pain?: No Do you have any abdominal pain?: No Are you experiencing loss of taste or smell?: No Other 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 Have you received the Flu Vaccine for this season: No Have you received the Pneumonia Vaccine: No ROS Obtained: Yes All systems reviewed & no additional complaints except as documented Physical Exam General General appearance: alert and in no apparent distress Head Head exam: atraumatic Eye Eye exam: Present normal appearance, PERRL and EOMI Neck Neck exam: Present normal inspection and full ROM Chest Chest inspection: Present symmetric chest wall rise Respiratory Respiratory exam: Present normal lung sounds bilaterally; Absent respiratory distress Cardiovascular Cardiovascular exam: Present regular rate and normal rhythm Abdominal Exam Abdominal exam: Present soft; Absent distention, tenderness, guarding or rebound Speculum exam: Present other (Close cervix with blood clot in the os) Extremities Exam Extremities exam: Present normal inspection Neurological Exam Neurological exam: Present alert and oriented X3 Psychiatric Psychiatric exam: Present normal affect and normal mood Skin Skin exam: Present warm and dry Medical Decision Making Medical Records Medical records reviewed: Yes I reviewed the patient's medical records. Screening: Per USPSTF and CDC recommendations, given the prevalence of disease in our region, it is our hospital?s policy to screen for HIV and viral Hepatitis for all patients aged 18 and over and those with ongoing risk factors. MR Comment: CERTIFIED COURT INTERPRETER discharge summary from 12/12/2024 notable for patient's past medical history as noted above. Patient underwent D&C for retained products of conception on 12/11/2024. Quantitative beta-hCG was 9 on 12/10/2024. Maksim Inquiry Pt receiving controlled substance: No Vital Signs: 12/19/24 20:42 12/19/24 22:08 Temperature 99.5 F 98.9 F Temperature Source Oral Pulse Rate 69 Respiratory Rate 18 18 Blood Pressure 128/74 Blood Pressure [Right Arm] 152/106 H Blood Pressure Mean [Right Arm] 121 02 Sat by Pulse Oximetry 99 Oxygen Delivery Method Room Air Room Air Lab Data Lab Results 12/19/24 21:03: WBC 4.7 L, RBC 3.83 L, Hgb 10.3 L, Hct 31.5 L, MCV 82.2, MCH 26.9 L, MCHC 32.7, RDW 13.8, Plt Count 229, MPV 11.3 H, Neut % (Auto) 49.0, Lymph % (Auto) 38.1, Sabine % (Auto) 10.8 H, Eos % (Auto) 1.7, Baso % (Auto) 0.4, Neut # (Auto) 2.3, Lymph # (Auto) 1.8, Sabine # (Auto) 0.5, Eos # (Auto) 0.1, Baso # (Auto) 0.0, Sodium 138, Potassium 3.4 L, Chloride 108 H, Carbon Dioxide 25, Anion Gap 8.4, BUN 10, Creatinine 0.80, Estimated Creat Clear 160, Estimated GFR 91, Est GFR ( Amer) 110, Glucose 98, Calcium 9.5, Total Bilirubin 0.3, AST 24, ALT 13, Alkaline Phosphatase 66, Total Protein 7.0, Albumin 4.3, Globulin 2.7, Albumin/Globulin Ratio 1.6, HCG, Quant < 2 12/19/24 21:07: Blood Type O Positive, Antibody Screen Negative 12/19/24 21:03 12/19/24 21:03 Orders (Tests/Meds): ED MEDICATIONS Discontinued Medications Generic Name Dose Route Start Last Admin Trade Name Wuq PRN Reason Stop Dose Admin Ketorolac Tromethamine 15 mg 12/19/24 21:30 12/19/24 21:39 Ketorolac 30mg/Ml Vial IV 12/19/24 21:31 15 mg ONCE ONE Administration Oxycodone HCl 5 mg 12/19/24 22:00 12/19/24 22:03 Oxycodone 5mg Immediate Release Tablet PO 12/19/24 22:01 5 mg ONCE ONE Administration ORDERS Category Date Time Status Type and Screen Stat BBK 12/19/24 21:07 Completed Beta HCG, Quant [HCG,Quantitative] Stat Lab 12/19/24 21:03 Completed CBC w/Auto Diff [Complete Blood Count Auto Diff] Stat Lab 12/19/24 21:03 Completed CMP [Comprehensive Metabolic Panel] Stat Lab 12/19/24 21:03 Completed Medical Decision Narrative: In summary, this 19-year-old female status post D&C on 12/11/2024 for retained products of conception presents to the emergency department today with pelvic cramping and vaginal bleeding that began today. On initial evaluation patient is afebrile, hemodynamically stable, nontoxic-appearing. Differential diagnosis includes but is not limited to retained products of conception, endometriosis, ectopic . Based on these concerns, I ordered CBC, CMP, quantitative beta-hCG, type and screen. Labs personally reviewed demonstrate hemoglobin of 10.3 from 10.9 on 12/12, undetectable quantitative beta-hCG, unremarkable CMP. Patient had a closed cervix with a blood clot in the os and evidence of recent bleeding. She did not have large-volume hemorrhage in the emergency department. Discussed patient's case and presentation with CERTIFIED COURT INTERPRETER on-call who stated that patient would be appropriate for who stated that patient would be appropriate for follow-up first thing in the morning for an outpatient ultrasound. Stated that he would put her on the schedule. Also recommended administering Toradol. Patient was administered Toradol and oral oxycodone and ultimately discharged with plan for ultrasound first thing in the morning, stable at the time of discharge. Hospitalization was considered. Critical Care Critical Care Time Critical Care Time: No
[2024-12-19 20:42] VITALS: BP 152/106; RESP 18; TEMP 37.5; O2SAT 99; BMI 30.5
--- OUTSIDE RECORDS SUMMARY | 2024-12-19 20:43 | XMS_ITS | Continuity of Care Document ---
Author Organization [facility] Phone Care Team Providers Care Enrollment Processor Name Role Phone ACACIA DICKSON Unavailable ACACIA DICKSON Admitting DECLINED, PCP Primary Care Unavailable ACACIA DICKSON Primary Attending ALLERGIES AND ADVERSE REACTIONS ALLERGIES AND ADVERSE REACTIONS Code System Allergy Substance Adverse Reaction Date Reaction (Severity) Comment Status Reported By Updated By [id number] SNOMED CT Penicillins Adverse reaction to substance Not Specified active [id number] on December 10, 2024 11:54:49 PM [place] [id number] SNOMED CT Sulfa Antibiotics Adverse reaction to substance Not Specified active [id number] on December 10, 2024 11:54:49 PM UT RESULTS Patient: JENNIFER PERSAUD ACE Date of : December 04 LABORATORY RESULTS ORDER 100: CBC AUTO W DIFF ( LOINC: 63715-9) ORDER DATE: December 10, 2024 11:53:00 PM UT Specimen Source: Whole Blood Specimen Type: Whole blood s ample PERFORMING LAB: [address] [id number] Result Comment: Final Result Date: December 11, 2024 12:12:00 AM UT (TECH: RJV) LOINC TEST FLAG RESULT REFERENCE RANGE UPDA ROSAS BY 6690-2 Leukocytes [#/volume] in Blood by Automated count L 3.8 10^3/uL 4.5 10^3/uL - 11.5 10^3/uL December 11, 2024 12:12:00 AM UT (TECH: RJV) 789-8 Erythrocytes [#/volume] in Blood by Automated count L 3.30 10^6/uL 4.25 10^6/uL - 5.57 10^6/uL December 11, 2024 12:12:00 AM UTC (TECH: [employer]) 718-7 Hemoglobin [Mass/volume] in Blood L 9.0 g/dL 12.0 g/dL - 15.7 g/dL December 11, 2024 12:12:00 AM UTC (TECH: [employer]) 19334-6 Hematocrit [Volume Fraction] of Blood L 27.4 % 36.0 % - 47.0 % December 11, 2024 12:12:00 AM UTC (TECH: [employer]) 787-2 Erythrocyte mean corpuscular volume [Entitic volume] by Automated count N 83.0 fl 80 fl - 95 fl December 11, 2024 12:12:00 AM UTC (TECH: [employer]) 61134-6 Erythrocyte mean corpuscular hemoglobin [Entitic mass] in Blood from Fetus by Automated count N 27.3 pg 27.0 pg - 34.0 pg December 11, 2024 12:12:00 AM UTC (TECH: [employer]) 32101-2 Erythrocyte mean corpuscular hemoglobin concentration [Mass/volume] in Blood from Fetus by Automated count N 32.8 g/dL 32.0 g/dL - 36.0 g/dL December 11, 2024 12:12:00 AM UTC (TECH: [employer]) 52331-8 Platelets [#/volume] in Blood L 133 10^3/uL 150 10^3/uL - 450 10^3/uL December 11, 2024 12:12:00 AM UTC (TECH: [employer]) 62398-8 Erythrocyte distribution width [Ratio] N 14.1 % 12.3 % - 15.1 % December 11, 2024 12:12:00 AM UTC (TECH: [employer]) 45249-9 Platelet mean volume [Entitic volume] in Blood by Automated count H 11.6 fl 7.4 fl - 10.4 fl December 11, 2024 12:12:00 AM UTC (TECH: [employer]) 56183-1 Granulocytes/100 leukocytes in Blood by Automated count N 50.6 % 40 % - 75 % December 11, 2024 12:12:00 AM UTC (TECH: [employer]) 736-9 Lymphocytes/100 leukocytes in Blood by Automated count N 38.0 % 15 % - 57 % December 11, 2024 12:12:00 AM UTC (TECH: RJV) 5905-5 Monocytes/100 leukocytes in Blood by Automated count N 9.2 % 4.0 % - 12.0 % December 11, 2024 12:12:00 AM UTC (TECH: RJV) 713-8 Eosinophils/100 leukocytes in Blood by Automated count N 1.6 % 0.0 % - 4.0 % December 11, 2024 12:12:00 AM UTC (TECH: RJV) 706-2 Basophils/100 leukocytes in Blood by Automated count N 0.3 % 0.0 % - 1.0 % December 11, 2024 12:12:00 AM UTC (TECH: RJV) 00420-4 Immature granulocytes [#/volume] in Blood N 0.3 % 0.0 % - 0.8 % December 11, 2024 12:12:00 AM UTC (TECH: RJV) 02024-3 Granulocytes [#/volume] in Blood by Automated count N 1.92 10^3/uL December 11, 2024 12:12:00 AM UTC (TECH: RJV) 731-0 Lymphocytes [#/volume] in Blood by Automated count N 1.44 10^3/uL December 11, 2024 12:12:00 AM UTC (TECH: RJV) 742-7 Monocytes [#/volume] in Blood by Automated count N 0.35 10^3/uL December 11, 2024 12:12:00 AM UTC (TECH: RJV) 711-2 Eosinophils [#/volume] in Blood by Automated count N 0.06 10^3/uL December 11, 2024 12:12:00 AM UTC (TECH: RJV) 704-7 Basophils [#/volume] in Blood by Automated count N 0.01 10^3/uL December 11, 2024 12:12:00 AM UTC (TECH: RJV) 93679-0 Immature granulocytes [#/volume] in Blood N 0.01 10^3/uL December 11, 2024 12:12:00 AM UTC (TECH: RJV) 35311-8 Manual differential performed [Presence] in Blood N NO December 11, 2024 12:12:00 AM UTC (TECH: RJV) ORDER 200: HCG QUALITATIVE S JES (LOINC: 211) ORDER DATE: December 10, 2024 11:53:00 PM UTC Specimen Source: Serum/Plasm a Specimen Type: Acellular blo od (serum or plasma) specimen PERFORMING LAB: [address] [id number] Result Comment: Final Result Date: December 11, 2024 12:35:00 AM UTC (TECH: [employer]) LOINC TEST FLAG RESULT REFERENCE RANGE UPDA ROSAS BY 2109-12 Choriogonadotropin .beta subunit ( test) [Presence] in Serum or Plasma N NEGATIVE NEGATIVE December 11, 2024 12:35:00 AM UTC (TECH: [employer]) 87892-4 Internal control result N PASS PASS December 11, 2024 12:35:00 AM UTC (TECH: [employer]) ORDER 300: COMP METABOLIC PA GINNY (LOINC: 09321-7) ORDER DATE: December 10, 2024 11:53:00 PM UTC Specimen Source: Serum/Plasm a Specimen Type: Acellular blo od (serum or plasma) specimen PERFORMING LAB: [address] [id number] Result Comment: Final Result Date: December 11, 2024 12:23:00 AM UTC (TECH: [employer]) LOINC TEST FLAG RESULT REFERENCE RANGE UPDA ROSAS BY 2951-2 Sodium [Moles/volume ] in Serum or Plasma N 140 mmol/L 136 mmol/L - 145 mmol/L December 11, 2024 12:23:00 AM UTC (TECH: [employer]) 2823-3 Potassium [Moles/volume] in Serum or Plasma N 3.5 mmol/L 3.5 mmol/L - 5.1 mmol/L December 11, 2024 12:23:00 AM UTC (TECH: RJV) 2075-0 Chloride [Moles/volume] in Serum or Plasma N 104 mmol/L 98 mmol/L - 107 mmol/L December 11, 2024 12:23:00 AM UTC (TECH: [employer]) 8-9 Carbon dioxide, tota l [Moles/volume] in Serum or Plasma N 27 mmol/L 21 mmol/L - 32 mmol/L December 11, 2024 12:23:00 AM UTC (TECH: [employer]) 60844-1 Anion gap 3 in Serum or Plasma N 9.0 December 11, 2024 12:23:00 AM UT (TECH: [employer]) 2345-7 Glucose [Mass/volume ] in Serum or Plasma N 101 mg/dL 70 mg/dL - 110 mg/dL December 11, 2024 12:23:00 AM UT (TECH: [employer]) 3094-0 Urea nitrogen [Mass/volume] in Serum or Plasma N 8 mg/dL 7 mg/dL - 18 mg/dL December 11, 2024 12:23:00 AM UT (TECH: [employer]) 2160-0 Creatinine [Mass/volume] in Serum or Plasma N 0.8 mg/dL 0.6 mg/dL - 1.0 mg/dL December 11, 2024 12:23:00 AM UT (TECH: [employer]) 3097-3 Urea nitrogen/Creatinine [Mass Ratio] in Serum or Plasma N 10.0 - December 11, 2024 12:23:00 AM [facility] (TECH: [employer]) 33446-0 Glomerular filtratio n rate/1.73 sq M.predicted by Creatinine-based formula (MDRD) N 107 mL/min >60 December 11, 2024 12:23:00 AM UT (TECH: [employer]) 08237-1 Osmolality of Serum or Plasma by calculated by sum of electrolytes N 290 mosm/kg 275 mosm/kg - 301 mosm/kg December 11, 2024 12:23:00 AM [facility] (TECH: [employer]) 2885-2 Protein [Mass/volume ] in Serum or Plasma N 8.1 g/dL 6.4 g/dL - 8.2 g/dL December 11, 2024 12:23:00 AM [place] (TECH: [employer]) 1751-7 Albumin [Mass/volume ] in Serum or Plasma N 4.5 g/dL 3.4 g/dL - 5.0 g/dL December 11, 2024 12:23:00 AM [place] (TECH: [employer]) 42441-5 Calcium [Mass/volume ] in Serum or Plasma N 9.9 mg/dL 8.5 mg/dL - 10.1 mg/dL December 11, 2024 12:23:00 AM [place] (TECH: [employer]) 28925-8 Calcium [Mass/volume ] corrected for total protein in Serum or Plasma N 9.5 mg/dL 8.5 mg/dL - 10.1 mg/dL December 11, 2024 12:23:00 AM UT ([employer]: [employer]) 1975-2 Bilirubin.total [Mass/volume] in Serum or Plasma L 0.3 mg/dL 0.4 mg/dL - 1.5 mg/dL December 11, 2024 12:23:00 AM [place] ([employer]: [employer]) 1920-8 Aspartate aminotransferase [Enzymatic activity/volume] in Serum or Plasma L 11 U/L 15 U/L - 37 U/L December 11, 2024 12:23:00 AM UT (TECH: [employer]) 1742-6 Alanine aminotransferase [Enzymatic activity/volume] in Serum or Plasma N 16 U/L 12 U/L - 78 U/L December 11, 2024 12:23:00 AM [place] ([employer]: [employer]) 6768-6 Alkaline phosphatase [Enzymatic activity/volume] in Serum or Plasma N 76 U/L 50 U/L - 120 U/L December 11, 2024 12:23:00 AM UT (TECH: [employer]) ORDER 400: PT PROTHROMBIN TI ME W INR (LOINC: 38214-8) ORDER DATE: December 10, 2024 11:59:00 PM UT Specimen Source: Plasma Specimen Type: Plasma specim en PERFORMING LAB: [address] [id number] Result Comment: Final Result Date: December 11, 2024 12:39:00 AM [facility] (TECH: [employer]) LOINC TEST [place] [address]-7 INR in Platelet poor plasma or blood by Coagulation assay N 10.9 seconds 9.1 seconds - 12.0 seconds December 11, 2024 12:39:00 AM UT (TECH: [employer]) 6301-6 INR in Platelet poor plasma by Coagulation assay N 1.00 0.9 - 1.1 December 11, 2024 12:39:00 AM [facility] ([employer]: [employer]) ORDER 500: PTT PARTIAL THROM B TIME (LOINC: 16161-8) ORDER DATE: December 10, 2024 11:59:00 PM UT Specimen Source: Plasma Specimen Type: Plasma specim en PERFORMING LAB: [address] [id number] Result Comment: Final Result Date: December 11, 2024 12:20:00 AM UT (TECH: RJV) LOINC TEST [place] [address]-8 Activated partial thromboplastin time (aPTT) in Platelet poor plasma by Coagulation assay N 28.7 seconds 24.5 seconds - 32.8 seconds December 11, 2024 12:20:00 AM [facility] (TECH: RJV) LABORATORY NARRATIVE RESULTS Information is not available RADIOLOGY RESULTS Information is not available PATHOLOGY NARRATIVE RESULTS Information is not available MICROBIOLOGY RESULTS No Micro Labs/Results Exist for Patient BLOOD ADMIN RESULTS Information is not available MEDICATIONS HOME MEDICATIONS Status RXNORM NDC Medication Dose Route Frequency Dates Comments Reported By Updated By Patient not on Self-Medications [id number] on December 10, 2024 11:54:49 PM UT DISCHARGE MEDICATIONS Status RXNORM NDC Medication Dose Route Frequency Dates Comments Physician Updated By No Discharge Medication Info rmation Available INPATIENT MEDICATIONS Status RXNORM NDC Medication Dose Route Frequency Rat e Quantity Dates Comments Physician Updated By No Inpatient Medication Info rmation Available SOCIAL HISTORY SOCIAL HISTORY SNOMED-CT Social History Element Description Effective Dates Offered Cessation Comment UpdatedBy [id number] Current Tobacco smoking status Never Smoked [id number] on December 10, 2024 11:56:00 PM [facility] SOCIAL HISTORY - Gender Sex: Female SOCIAL HISTORY - Status : status i nformation is not available Intention in Next Year: intention information is not available SOCIAL HISTORY - Sexual Behavior Sexual Orientation Gender Identity SNOMED-CT Description SNO MED -CT Description Activity Level No of Partners Partner Type UpdatedBy Information is not available VITAL SIGNS PATIENT VITAL SIGNS This section displays the mo st recent value for each vital sign as of December 12, 2024 1:25:45 PM [facility] Code Vital Sign Activity Date Result Updated By 8310-5 Body temperature December 10, 2024 11:38:41 PM UT 98.0 [degF] [id number] on December 12, 2024 1:27:54 AM UT 8462-4 Diastolic blood pressure December 11, 2024 1:00:00 AM UT 88.0 mm[Hg] [id number] on December 12, 2024 1:28:05 AM UT 8867-4 Heart rate December 11, 2024 12:59:00 AM UT 96 /min [id number] on December 12, 2024 1:28:04 AM [facility] 76645-0 Oxygen saturation in Arterial blood by Pulse oximetry December 11, 2024 12:59:00 AM UTC 100.0 % [id number] on December 12, 2024 1:28:04 AM [facility] 9279-1 Respiratory rate December 11, 2024 12:45:37 AM UTC 18 /min [id number] on December 12, 2024 1:28:03 AM [facility] 8480-6 Systolic blood pressure November 1:00:00 AM UT 145.0 mm[Hg] [id number] on December 12, 2024 1:28:05 AM [facility] PEDIATRIC GROWTH CHART - VITAL SIGNS This section displays Head C ircumference Percentile, Weight for Length Percentile and BMI Percentile Loinc Code Pediatric Measure Age (Months) Result Updat ed By No Pediatric Growth Chart Pe rcentile Information Available. HEALTH CONCERNS Problems Concern Status Health Concern problem infor mation not available. Smoking Status Status Years Used Consumed packs p er day Health Concern smoking histo ry information not available. Family History Concern Status Health Concern family histor y information not available. ENCOUNTERS ENCOUNTER INFORMATION Reason for Visit VAGINAL BLEEDING Admission December 10, 2024 11:28:00 PM [place] B [address] [id number] Discharge December 11, 2024 1:27:00 AM UT AN OTHER [facility] ENCOUNTER DIAGNOSES Notes information is not vandana ilable. Code System Diagnosis Onset Date Diagnosis information is not available. ABSTRACT DIAGNOSES Code System Diagnosis Updated By O20.9 ICD10 HEMORRHAGE IN EA RLY , UNSPECIFIED [id number] on December 12, 2024 1:25:16 PM [facility] O26.891 ICD10 OTHER SPECIFIED RELATED CONDITIONS, FIRST TRIMESTER [id number] on December 12, 2024 1:25:16 PM [facility] R42 ICD10 DIZZINESS AND GIDDINESS [id number] on December 12, 2024 1:25:16 PM [facility] O20.9 ICD10 HEMORRHAGE IN EA RLY , UNSPECIFIED [id number] on December 12, 2024 1:25:16 PM [facility] Z88.0 ICD10 ALLERGY STATUS TO PENICILLIN [id number] on December 12, 2024 1:25:16 PM UT Z88.2 ICD10 ALLERGY STATUS TO SULFONAMID ES [id number] on December 12, 2024 1:25:16 PM [facility] Z3A.01 ICD10 LESS THAN 8 WEEK S GESTATION OF [id number] on December 12, 2024 1:25:16 PM [facility] CARE TEAM Care Enrollment Processor Role ACACIA DICKSON Referring ACACIA DICKSON Admitting PCP DECLINED Primary Care ACACIA DICKSON Primary 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 Role on Team Status Start Date End Date Update d By DECLINED PCP PCP normal December 11, 2024 12:02:46 AM UT December 11, 2024 1:27:00 AM [facility] [id number] on December 11, 2024 12:02:46 AM [facility] YESSI TRIMBLE Referring normal December 10, 2024 11:46:48 PM [facility] December 11, 2024 1:27:00 AM [facility] [id number] on December 11, 2024 12:02:46 AM [facility] YESSI TRIMBLE Attending normal December 10, 2024 11:46:48 PM [facility] December 11, 2024 1:27:00 AM [facility] [id number] on December 11, 2024 12:02:46 AM [facility] YESSI TRIMBLE Admitting normal December 10, 2024 11:46:48 PM [facility] December 11, 2024 1:27:00 AM [facility] [id number] on December 11, 2024 12:02:46 AM [facility] ESHA AHMADI MD PCP normal December 10, 2024 11:29:05 PM [facility] December 11, 2024 12:02:46 AM [facility] [id number] on December 11, 2024 12:02:46 AM [facility]
--- NOTE | 2024-12-19 21:13 | PC.NURSE ---
Stepped in as witness for a pelvic exam performed by Dr. Villafana.
[2024-12-19 21:31] LABS: Basophils % 0.4 % (0.1-2.0); Eosinophils # 0.1 Kmm3 (0.0-0.4); Eosinophils % 1.7 % (0.1-12.0); Hematocrit 31.5 % (37.0-47.0); Hemoglobin 10.3 g/dL (12.2-16.2); Lymphocytes # 1.8 K/mm3 (0.7-4.5); Lymphocytes % 38.1 % (10-50); Mean Corpuscular HGB Conc 32.7 g/dL (31.8-35.4); Mean Corpuscular Hemoglobin 26.9 pg (27.0-31.2); Mean Corpuscular Volume 82.2 fl (81-99); Mean Platelet Volume 11.3 fl (7.4-10.4); Monocytes # 0.5 K/mm3 (0.1-1.0); Monocytes % 10.8 % (1.7-9.3); Neutrophils # 2.3 K/mm3 (1.8-7.8); Nucleated Red Blood Cells # 0 10^3/uL; Nucleated Red Blood Cells % 0 %; Platelet Count 229 K/mm3 (142-424); Red Blood Count 3.83 M/mm3 (4.20-5.40); Red Cell Distribution Width 13.8 % (11.5-17.5); Red Cell Distribution Width-SD 41.1 fL; White Blood Count 4.7 K/mm3 (4.8-10.8)
[2024-12-19 21:32] LABS: Alanine Aminotransferase 13 U/L (12-78); Albumin Level 4.3 g/dl (3.5-5.0); Albumin/Globulin Ratio 1.6 (1.1-1.8); Alkaline Phosphatase 66 U/L (38-126); Anion Gap 8.4 mEq/L (5-15); Aspartate Amino Transferase 24 U/L (14-36); Bilirubin,Total 0.3 mg/dl (0.2-1.3); Blood Urea Nitrogen 10 mg/dl (7-17); Calcium 9.5 mg/dl (8.4-10.2); Carbon Dioxide 25 mmol/L (22.0-30.0); Chloride 108 mmol/L (98-107); Creatinine Clearance Estimated 160 mL/min (50-200); Estimated Glomerular Filt Rate 91 ml/min (>60); GFR (African American) 110 ML/MIN (>60); Globulin 2.7 g/dL (1.3-3.2); Glucose 98 mg/dl (74-100); Potassium 3.4 mmoL/L (3.5-5.1); Sodium 138 mmol/L (136-145)
[2024-12-19] MEDS: KETOROLAC 30MG/ML VIAL 15 MG IV (21:39)
[2024-12-19 21:51] LABS: HCG,Quantitative < 2 mIU/ml (0-5.42)
[2024-12-19] MEDS: OXYCODONE 5MG IMMEDIATE RELEASE TABLET 5 MG PO (22:03)
[2024-12-19 22:08] VITALS: BP 128/74; PULSE 69; RESP 18; TEMP 37.2; O2SAT 99
== END 2024-12-19 22:08 | disposition home or self-care (01) ==
PROVIDERS: Emergency Provider Student in an Organized Health Care Education/Training Program; PCP Internal Medicine Adolescent Medicine
DX: R10.819 Abdominal tenderness, unspecified site (principal); N93.9 Abnormal uterine and vaginal bleeding, unspecified
CPT/HCPCS: 80053; 84702; 85025; 86850; 96374; 99284; J1885

== ENCOUNTER 2024-12-20 09:52 | Outpatient (CLI) | payer OTHER, SELFPAY ==
--- NOTE | 2024-12-20 10:00 | US_ITS ---
PROCEDURE: US TRANSVAGINAL CLINICAL INDICATION: needs jessica abnormal vaginal bleeding COMPARISON: US US TRANSVAGINAL from 12/10/2024 FINDINGS: Transvaginal sonographic images of the pelvis were obtained. UTERUS: 7.2cm x 6.7 cmx 5.2cm retroverted with a combined endometrial thickness of 24.7mm. The endometrium itself is thin and the endometrial cavity is filled with blood clots. There appears to be a more substantial clot or possibly retained products in the cervix. LEFT OVARY: 7owt4uki6.7cm with a volume of 4.7ml. There are multiple small follicles within the left ovary. The largest measures 1.3 cm. RIGHT OVARY: 2cmx [id number] with a volume of 6ml. There are multiple small follicles in the right ovary. The largest measures 9.3 mm. Both ovaries are seen and appear normal. Doppler flow to both ovaries are seen. There is no fluid in the cul-de-sac. IMPRESSION: 1. Retroverted uterus normal in shape and size. The endometrium is thin but the entire endometrial cavity is filled with clot up to 24 mm. There appears to be tissue or a formed clot in the cervical canal. 2. Both ovaries are seen and have multiple small follicles. They otherwise appear normal. 3. There is no fluid in the cul-de-sac. 4. I discussed the findings with Dr. Arceo. Dictated by: Sergei Angeles MD 12/20/2024 11:55 Sergei Angeles MD in OV 12/20/2024 11:55
== END 2024-12-20 23:59 | disposition home or self-care (01) ==
LOC: RAD 09:53
PROVIDERS: PCP Nurse Practitioner Obstetrics & Gynecology; Visit Provider Nurse Practitioner Obstetrics & Gynecology
DX: N93.9 Abnormal uterine and vaginal bleeding, unspecified (principal)
CPT/HCPCS: 76830

== ENCOUNTER 2024-12-20 10:26 | Observation (INO) | payer OTHER, SELFPAY ==
--- NOTE | 2024-12-20 10:55 | PC.NURSE ---
Pt. Arrived to unit for admission for retained product. Pt. into room 280 for admission. Pt. state I don't know why I am up here and what is going on. I was in Ultrasound and Dr. Angeles told me to go straight up to OB. Nurse v/u and reports she will speak with physician regarding Pt. care and admission. Pt. v/u.
--- NOTE | 2024-12-20 11:05 | PC.NURSE ---
Pt. updated on POC of waiting for Dr. Arceo to come up and speak with pt. regarding admission. Pt. v/u and agreeable.
[2024-12-20 11:45] VITALS: BP 129/81; PULSE 62; RESP 16; TEMP 37.2; O2SAT 98
[2024-12-20 12:02] VITALS: O2SAT 98
--- NOTE | 2024-12-20 12:24 | EXP.HP ---
History of Present Illness *Admission Date: 12/20/24 *Reason for visit:: Pelvic pain and bleeding *History of present illness: Ms Sydney Dykes is a 19 yo P1011 who presented to [facility] ED on 12/19/24 with complaint of pelvic cramping and vaginal bleeding with passage of two large clots. This morning she reports mild pelvic cramping but no bleeding. No fever/chills, chest pain or shortness of breath. She went to [place], [place] on October 25, 2024 for surgical elective . She states she bled for two days after but it was dark red and she thought it was her period. She underwent dilation and curettage for retained products of conception on 12/11/24. Pathology confirmed retained products. Ultrasound this morning demonstrated retroverted uterus normal in shape and size. The endometrium is thin but the entire endometrial cavity is filled with clot up to 24 mm. There appears to be tissue or a formed clot in the cervical canal. 2. Both ovaries are seen and have multiple small follicles. They otherwise appear normal. 3. There is no fluid in the cul-de-sac. [facility] Disclaimer: The information contained in this section may have been updated after the patient was seen, as this information can be updated by other users. 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 (Updated 12/20/24 @ 12:33 by Loida Arceo DO) Abnormal uterine bleeding Esophageal fissure Retained products of conception after induced termination of Elective anemia Alpha thalassemia silent carrier Palpitations Insomnia Encephalopathy Benign liver cyst Asthma Syncope and collapse Atypical chest pain Gastroenteritis Heavy menstrual bleeding Surgical History (Updated 12/20/24 @ 12:33 by Loida Arceo DO) S/P D&C (status post dilation and curettage) S/P History of mandibular surgery Family History Mother FHx: mental illness Substance abuse Father FHx: mental illness Substance abuse Family/Other Heart attack Coronary artery disease Family/Other Cancer Family/Other Idiopathic pulmonary fibrosis Social History (Updated 12/20/24 @ 11:45 by Beatriz Crowder RN) Smoking Status: Never smoker how long ago did patient quit smoking: vape second hand exposure: No alcohol intake: never substance use type: other details: cbd gummies current occupational status: unemployed and student Travel in the last 8 weeks?: Inside the [place] adopted: Yes household members: adopted family housing: house lives independently: No marital status: single service: No current occupation: [employer] current occupational exposures/hazards: Yes Hx Recent Travel: No sexually active: No caffeine: Yes Have you lived/traveled outside US in past 30 days?: No Contact w/someone who lives/traveled outside US past 30 days?: No Exposure to someone with infectious disease in past 14 days?: No Do you have a fever (greater than 100.4 F or 38 C)?: No Have you tested positive for COVID-19?: No Exposed to someone with COVID-19 in past 14 days?: No Do you have a sore throat?: No Do you have a cough?: No Do you have any weakness?: No Do you have any diarrhea?: No Are you experiencing any unusual bleeding?: No Do you have any muscle aches/pain?: No Do you have any abdominal pain?: No Are you experiencing loss of taste or smell?: No Other 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 Have you received the Flu Vaccine for this season: No Have you received the Pneumonia Vaccine: No Review of Systems Review of Systems Review of systems:: pertinent systems reviewed and negative unless documented below *Genitourinary Genitourinary: Reports pelvic pain (Mild pelvic cramping) Meds Home Medications and Allergies Home Medications ?Medication ?Instructions ?Recorded ?Confirmed ?Type No Known Home Medications 12/20/24 12/20/24 History New Prescriptions to Start Prescriptions: Allergies Allergy/AdvReac Type Severity Reaction Status Date / Time Penicillins (PENICILLINS) Allergy Unknown Anaphylaxis Verified 12/19/24 20:48 coconut Allergy Unknown Verified 12/19/24 20:48 allergy reaction Sulfa (Sulfonamide Allergy Anaphylaxis Verified 12/19/24 20:48 Antibiotics) Exam Data for Last 24 hours Vital signs and Labs for Last 24 Hours: Temp Pulse Resp BP Pulse Ox O2 Del Method 99.0 F 62 16 129/81 98 Room Air 12/20/24 11:45 12/20/24 11:45 12/20/24 11:45 12/20/24 11:45 12/20/24 12:02 12/20/24 12:02 Constitutional Constitutional: no acute distress and cooperative *Routine HEENT Exam Head: Present normocephalic and atraumatic Eye: Absent conjunctivae pink ENT: Present mucous membranes moist *Routine Neck Exam Neck: Present full ROM *Routine Respiratory Exam Respiratory: Present CTA bilaterally and normal respiratory effort *Routine Cardiovascular Exam Cardiovascular: Present RRR *Routine Abdominal Exam Abdominal: Present soft and tenderness (mild suprapubic tenderness to palpation); Absent distended, rebound or guarding *Routine Rectal Exam Rectal:: deferred *Routine Genitalia Exam Genitalia:: normal female Comment:: Speculum demonstrated dark red/brown clot extending out of external cervical os. Attempted to grab clot with ringed forceps. Small amount of clot removed but clot still visible within cervical canal. *Routine Extremities Exam Extremities: Present full ROM; Absent edema or calf tenderness *Routine Neurological Exam Neurological: Present alert, moving all extremities and normal speech Routine Psychiatric Exam Psychiatric: Present normal affect and cooperative Assessment and Plan *Assessment and plan (1) Abnormal uterine bleeding: Status: Acute Category: Medical Code(s): N93.9 - Abnormal uterine and vaginal bleeding, unspecified (2) S/P D&C (status post dilation and curettage): Problem Comment: Initial elective surgical in [place], [place] 10/25/24 followed by D&C 12/11/24 at [facility] for retained products of conception Status: Acute Category: Surgical Code(s): Z98.890 - Other specified postprocedural states Plan Discussed findings on ultrasound resemble blood clots within the uterus and cervical canal. Speculum exam allowed for visualization of blood clot within the cervix Admit for observation and Cytotec 800 mcg vaginally. She denies bleeding now but admits to mild cramping. Can give second dose 6 hours after first if needed [place] and Ibuprofen 800 mg orally ordered Regular diet PO fluids Pad counts Repeat CBC in the AM Plan d/c home tomorrow
[2024-12-20] MEDS: miSOPROStoL 200 MCG TABLET 800 MCG VG (12:25)
[2024-12-20] MEDS: IBUPROFEN 400 MG TABLET 800 MG PO (12:29)
[2024-12-20 13:18] VITALS: BMI 30.3
--- NOTE | 2024-12-20 14:30 | PC.NURSE ---
Pt. reports changing pad. Clot the size of golfball noted in the toilet. Pt. denies current needs.
[2024-12-20 16:00] VITALS: BP 132/85; PULSE 67; RESP 17; TEMP 37.1; O2SAT 100
--- NOTE | 2024-12-20 17:09 | PC.NURSE ---
Pt. reports going to bathroom and changing pad. Small amount of rubra noted on pad. small clot noted in toilet the size of a grape. Pt. denies current needs.
[2024-12-20] MEDS: HYDROCODONE/APAP 5/325 MG TABLET 1 TAB PO (18:11)
[2024-12-20 19:41] VITALS: BP 144/82; PULSE 66; RESP 18; TEMP 37.2; O2SAT 98
[2024-12-20 20:00] VITALS: O2SAT 98
[2024-12-21] VITALS: BP 132/91; PULSE 66; RESP 18; TEMP 36.9; O2SAT 97
--- NOTE | 2024-12-21 | PC.NURSE ---
Pt admits to having a clean pad and little to bleeding for 4 hours, Pt does admit to having a FAN ad was treated per MAR.
[2024-12-21 04:00] VITALS: BP 110/75; PULSE 60; RESP 16; TEMP 36.4; O2SAT 98
[2024-12-21] MEDS: HYDROCODONE/APAP 5/325 MG TABLET 1 TAB PO (04:00)
[2024-12-21 06:16] LABS: Basophils % 0.5 % (0.1-2.0); Eosinophils # 0.1 Kmm3 (0.0-0.4); Eosinophils % 2.4 % (0.1-12.0); Hematocrit 32.9 % (37.0-47.0); Hemoglobin 10.5 g/dL (12.2-16.2); Lymphocytes # 1.9 K/mm3 (0.7-4.5); Lymphocytes % 50.3 % (10-50); Mean Corpuscular HGB Conc 31.9 g/dL (31.8-35.4); Mean Corpuscular Hemoglobin 26.4 pg (27.0-31.2); Mean Corpuscular Volume 82.9 fl (81-99); Mean Platelet Volume 11.3 fl (7.4-10.4); Monocytes # 0.4 K/mm3 (0.1-1.0); Monocytes % 10.9 % (1.7-9.3); Neutrophils # 1.3 K/mm3 (1.8-7.8); Neutrophils % 35.6 % (37.0-80.0); Nucleated Red Blood Cells # 0 10^3/uL; Nucleated Red Blood Cells % 0 %; Platelet Count 215 K/mm3 (142-424); Red Blood Count 3.97 M/mm3 (4.20-5.40); Red Cell Distribution Width 13.6 % (11.5-17.5); Red Cell Distribution Width-SD 41.1 fL; White Blood Count 3.8 K/mm3 (4.8-10.8)
--- NOTE | 2024-12-21 09:11 | P.DS_ITS ---
General Admission date:: 12/20/24 Discharge date: 12/21/24 HPI HPI HPI: Resting comfortably in bed. She admits to passing a golf ball size clot over night after receiving Cytotec but no other bleeding. She is feeling well. No complaints or concerns. Hospital Course Hospital Course Hospital Course: Ms Sydney Dykes is a 19 yo P1011 who presented to [facility] ED on 12/19/24 with complaint of pelvic cramping and vaginal bleeding with passage of two large clots. This morning she reports mild pelvic cramping but no bleeding. No fever/chills, chest pain or shortness of breath. She went to [place], [place] on October 25, 2024 for surgical elective . She states she bled for two days after but it was dark red and she thought it was her period. She underwent dilation and curettage for retained products of conception on 12/11/24. Pathology confirmed retained products. Ultrasound this morning demonstrated retroverted uterus normal in shape and size. The endometrium is thin but the entire endometrial cavity is filled with clot up to 24 mm. There appears to be tissue or a formed clot in the cervical canal. 2. Both ovaries are seen and have multiple small follicles. They otherwise appear normal. 3. There is no fluid in the cul-de-sac. She received Cytotec 800 mcg vaginally x 1 dose. She did well overnight. No bleeding this morning. AM Hgb 10.5 (10.3 on admission). Vital signs stable, afebrile. She was discharged home. Follow-up in the office 12/25/24 as scheduled. Exam Data for Last 24 hours Vital signs and Labs for Last 24 Hours: Temp Pulse Resp BP Pulse Ox O2 Del Method 97.6 F 60 16 110/75 98 Room Air 12/21/24 04:00 12/21/24 04:00 12/21/24 04:00 12/21/24 04:00 12/21/24 04:00 12/21/24 06:00 Laboratory Results - last 24 hr 12/21/24 05:14: WBC 3.8 L, RBC 3.97 L, Hgb 10.5 L, Hct 32.9 L, MCV 82.9, MCH 26.4 L, MCHC 31.9, RDW 13.6, Plt Count 215, MPV 11.3 H, Neut % (Auto) 35.6 L, Lymph % (Auto) 50.3 H, Real % (Auto) 10.9 H, Eos % (Auto) 2.4, Baso % (Auto) 0.5, Neut # (Auto) 1.3 L, Lymph # (Auto) 1.9, Real # (Auto) 0.4, Eos # (Auto) 0.1, Baso # (Auto) 0.0 I & O for Last 24 hours: Intake & Output 12/18/24 12/19/24 12/20/24 12/21/24 23:59 23:59 23:59 23:59 Weight 199 lb 15.983 oz Constitutional Constitutional: no acute distress and cooperative *Routine HEENT Exam Head: Present normocephalic and atraumatic Eye: Absent conjunctivae pink ENT: Present mucous membranes moist *Routine Neck Exam Neck: Present full ROM *Routine Respiratory Exam Respiratory: Present CTA bilaterally and normal respiratory effort *Routine Cardiovascular Exam Cardiovascular: Present RRR *Routine Abdominal Exam Abdominal: Present soft; Absent tenderness or distended *Routine Rectal Exam Patient deferred: visual exam *Routine Exam Patient deferred: external exam *Routine Extremities Exam Extremities: Present full ROM; Absent edema or calf tenderness *Routine Neurological Exam Neurological: Present alert, moving all extremities and normal speech Routine Psychiatric Exam Psychiatric: Present normal affect and cooperative Results Data Completed and Pending Labs on day of discharge: Labs from last 24 hours 12/21/24 05:14 WBC 3.8 L RBC 3.97 L Hgb 10.5 L Hct 32.9 L MCV 82.9 MCH 26.4 L MCHC 31.9 RDW 13.6 Plt Count 215 MPV 11.3 H Neut % (Auto) 35.6 L Lymph % (Auto) 50.3 H Real % (Auto) 10.9 H Eos % (Auto) 2.4 Baso % (Auto) 0.5 Neut # (Auto) 1.3 L Lymph # (Auto) 1.9 Real # (Auto) 0.4 Eos # (Auto) 0.1 Baso # (Auto) 0.0 DS: Diagnosis Discharge Diagnosis (1) Abnormal uterine bleeding: Status: Acute Code(s): N93.9 - Abnormal uterine and vaginal bleeding, unspecified (2) S/P D&C (status post dilation and curettage): Status: Acute Code(s): Z98.890 - Other specified postprocedural states Problem details: Initial elective surgical in [place], [place] 10/25/24 followed by D&C 12/11/24 at [facility] for retained products of conception Meds Home Medications and Allergies Home Medications ?Medication ?Instructions ?Recorded ?Confirmed ?Type No Known Home Medications 12/20/24 12/20/24 History New Prescriptions to Start Prescriptions: Allergies Allergy/AdvReac Type Severity Reaction Status Date / Time Penicillins (PENICILLINS) Allergy Unknown Anaphylaxis Verified 12/19/24 20:48 coconut Allergy Unknown Verified 12/19/24 20:48 allergy reaction Sulfa (Sulfonamide Allergy Anaphylaxis Verified 12/19/24 20:48 Antibiotics) Discharge Plan Disposition Patient Disposition: Home, Self-Care Condition: Good Discharge Order Discharge Orders: Discharge Order (Routine); Ordered 12/21/24 Ordered By: Loida Arceo Follow up Plan Follow up with: Loida Arceo DO [Staff Physician] - 12/25/24 (as scheduled) Prescriptions/Medication Reconciliation: No Action No Known Home Medications Problem Reconciliation Problems Reviewed?: Yes Patient Discharge Instructions ACTIVITY: Limited activity DIET: continue same diet and regular diet Patient Instructions: DI for a Dilation and Curettage, DI for Vaginal Bleeding Print Language: Tristanian Providers Primary Care Provider: Eligio Greco Provider: Loida Arceo Attending Provider: Loida Arceo
[2024-12-21 09:30] VITALS: BP 124/83; PULSE 72; RESP 18; TEMP 37; O2SAT 98
[2024-12-21] MEDS: IBUPROFEN 400 MG TABLET 800 MG PO ×2 (09:31)
--- NOTE | 2024-12-21 09:57 | PC.NURSE ---
0955 Discharge teaching provided to pt, questions encouraged and answered.
== END 2024-12-21 10:00 | disposition home or self-care (01) ==
PROVIDERS: Admitting Provider Obstetrics & Gynecology; PCP Internal Medicine Adolescent Medicine; Visit Provider Obstetrics & Gynecology
DX: O07.4 Failed attempted termination of pregnancy without complication (principal); Z88.0 Allergy status to penicillin; Z88.2 Allergy status to sulfonamides; Z91.018 Allergy to other foods; F17.290 Nicotine dependence, other tobacco product, uncomplicated
CPT/HCPCS: 85025; G0378

== ENCOUNTER 2025-01-30 12:59 | Emergency (ER) | payer OTHER, SELFPAY ==
[2025-01-30 13:09] VITALS: BP 147/92; PULSE 98; RESP 15; TEMP 36.9; O2SAT 100; BMI 31.3
--- OUTSIDE RECORDS SUMMARY | 2025-01-30 13:10 | XMS_ITS | Data Portability ---
Author Organization [facility] [place] & [facility] ADMIN Address [address] [place] [id number] Care Team Providers Care Rail Loader Name Role Phone NGOC LINARES Primary Care Provider [phone] Assessment Encounter Date Assessment Date Assessment LastModified by Organization Details LastModified Time 10/05/2022 10/05/2022 18 [id number] who presents with: 1) Nausea and vomiting -Continue zofran as needed -Order upper GI series and small bowel follow through to rule out gastric outlet obstruction -THC cessation counseled -Maintain adequate oral hydration -Treatment of constipation per below -Will consider upper endoscopy if not improved -Continue Zofran as needed. Consider addition of Remeron. 2) Chronic idiopathic constipation -Prescribe Linzess 145mcg once daily for constipation -Ingest 20 to 30 g of insoluble fiber per day -Drink plenty of water (1.5-2 liters per day) -Refrain from straining or lingering (eg reading) on the toilet. -Practice regular physical exercise. -Limit intake of fatty foods and alcohol, which can exacerbate constipation -Consider colonoscopy if symptoms are not improved [email or web address] Not available 10/05/2022 16:20:02 Plan of Treatment Reminders Order Date Submit Date Provider Last Modified By Organization Details Last Modified Time Details Appointments None recorded. Lab None recorded. Referral None recorded. Procedures None recorded. Surgeries None recorded. Imaging RF, upper gastrointes tinal tract + small bowel, w/ contrast PO 2022 023 [email or web address] [address] [facility] (Scheduling), [address], [place], [address], 14:36:44 Medication Orders Linzess 145 mcg capsule 2022 023 [email or web address] [facility], [address], [address], 3 16:16:00 Patient TargetsNo targets recorded. Patient InstructionsNo instructions recorded. Reason for Referral None Reported. Problems Name Problem SNOMED Code Status Onset Date Resolution Date Notes Provider Name and Address Organization Details Recorded Time Acquired pes planus 245834461 Active 023 Kirstie rivero, [place] - [facility] - [place] & [place] 3 14:03:17 Abdominal pain 19232478 Active 023 Kirstie rivero, [place] [facility] [place] & [place] 3 14:04:04 Nausea 061026515 Active 023 Kirstie rivero, [place] [facility] [place] & [place] 3 14:04:28 Abdominal bloating 914125333 Active 023 Bro Bhardwaj PA-C [address] [facility], [place], [address] , [place] - [facility] [place] & [place] 3 14:31:28 Problem Notes None recorded. Medical Equipment None Reported. Allergies Allergen ID Allergen Name Allergen Category Reaction Reaction Severity Criticality Documentation Date Start Date Code Code System Note Provider Name and Address Organization Details Recorded Time 59314 Product containin g penicilli n (product) medicatio n Not available Not available Not available 10/05/2022 44925 8001 SNOMED Kirstie rivero, [place] - [facility] - [place] & [place] 3 13:58:10 22326 penicilli n G Not available anaphylax is severe Not available 10/05/2022 7980 RxNorm Kirstie rivero, [place] - [facility] - [place] & [place] 3 13:53:59 87003 coconut extract food,medi cation hives mild Not available 10/05/2022 80348 48 RxNorm Kirstie rivero, [place] - [facility] [place] & [place] 3 13:53:59 Medications Name Sig Start Date Stop Date Status Note LastModified by Organization Details LastModified Time clindamycin HCl 300 mg capsule TAKE 1 CAPSULE BY MOUTH EVERY 8 HOURS 10/05 completed Not Available Not Available Not Available azithromyci n 250 mg tablet TAKE 2 TABLETS BY MOUTH ON DAY 1, AND THEN TAKE 1 TABLET BY MOUTH ONCE A DAY ON DAY 2 THROUGH DAY 5 10/05 completed Not Available Not Available Not Available ibuprofen 800 mg tablet TAKE 1 TABLET BY MOUTH THREE TIMES DAILY WITH FOOD 10/05 completed Not Available Not Available Not Available Lidocaine Viscous 2 % mucosal solution APPLY 2 ML TO AFFECTED AREA EVERY 2 HOURS NEEDED FOR PAIN 10/05 completed Not Available Not Available Not Available fluconazole 150 mg tablet TAKE ONE TABLET BY MOUTH A ONE-TIME DOSE 10/05 completed Not Available Not Available Not Available phenazopyri dine 200 mg tablet TAKE 1 TABLET BY MOUTH THREE TIMES DAILY 10/05 completed Not Available Not Available Not Available ondansetron HCl 4 mg tablet TAKE 1 TABLET BY MOUTH EVERY 8 HOURS NEEDED FOR NAUSEA AND VOMITING active Not Available Not Available No t Available omeprazole 40 mg capsule,del ayed release TAKE 1 CAPSULE BY MOUTH ONCE DAILY 10/05 completed Not Available Not Available Not Available famotidine 20 mg tablet TAKE 1 TABLET BY MOUTH TWICE DAILY 10/05 completed Not Available Not Available Not Available meclizine 25 mg tablet TAKE 1 TABLET BY MOUTH EVERY 8 HOURS NEEDED FOR VERTIGO 10/05 completed Not Available Not Available Not Available methylpredn isolone 4 mg tablets in a dose pack TAKE BY MOUTH DIRECTED ON INSIDE OF PACKAGE 10/05 completed Not Available Not Available Not Available bromphenira mine-pseudo ephedrine-D M 2 mg-30 mg-10 mg/5 mL oral syrup TAKE 5 ML BY MOUTH EVERY 6 HOURS NEEDED FOR COUGH 10/05 completed Not Available Not Available Not Available ondansetron 4 mg disintegrat ing tablet DISSOLVE 1 TABLET IN MOUTH EVERY 8 HOURS NEEDED FOR NAUSEA 10/05 completed Not Available Not Available Not Available cefdinir 300 mg capsule TAKE 1 CAPSULE BY MOUTH TWICE DAILY 10/05 completed Not Available Not Available Not Available Gavilax 17 gram/dose oral powder MIX 1 CAPFUL OF POWDER IN LIQUID AND DRINK BY MOUTH ONCE DAILY 10/05 completed Not Available Not Available Not Available Linzess 145 mcg capsule TAKE 1 CAPSULE BY MOUTH ONCE DAILY FOR 30 DAYS active Not Available Not Available No t Available Vitals Date Recorded Body weight Provider Name an d Address Organization Details Last Updated DateTime 10/05/2022 38294.22 dafne Asher [place] - [facility] [place] & [place] 10/05/2022 13:53:05 Social History None recorded. Functional Status None recorded. Mental Status None recorded. Family History Relationship Description Onset Age of this Age Resolved Age Notes LastModified by Organization Details LastModified Time Unspecified Relation Autoimmune disease pt. added direct ly (10/05) API-13 Not available 10/05/2022 08:36:45 Father Disease of liver pt. added direct ly (10/05) [email or web address]-13 Not available 10/05/2022 08:36:51 Father Hypertensive disorder pt. added direct ly (10/05) [email or web address]-13 Not available 10/05/2022 08:37:25 Father Mental health problem pt. added direct ly (10/05) [email or web address]-13 Not available 10/05/2022 08:37:38 Father Substance abuse pt. added direct ly (10/05) [email or web address]-13 Not available 10/05/2022 08:37:48 Maternal Grandmother Headache pt. added direct ly (10/05) [email or web address]-13 Not available 10/05/2022 08:36:57 Maternal Grandmother Myocardial infarction pt. added direct ly (10/05) API-13 Not available 10/05/2022 08:37:13 Maternal Grandmother Hypertensive disorder pt. added direct ly (10/05) API-13 Not available 10/05/2022 08:37:25 Maternal Grandmother Rheumatoid arthritis pt. added direct ly (10/05) API-13 Not available 10/05/2022 08:37:32 Mother Disorder of endocrine system pt. added direct ly (10/05) API-13 Not available 10/05/2022 08:37:02 Mother Hypertensive disorder pt. added direct ly (10/05) API-13 Not available 10/05/2022 08:37:25 Mother Mental health problem pt. added direct ly (10/05) API-13 Not available 10/05/2022 08:37:38 Mother Substance abuse pt. added direct ly (10/05) API-13 Not available 10/05/2022 08:37:48 Maternal Grandfather Myocardial infarction pt. added direct ly (10/05) API-13 Not available 10/05/2022 08:37:13 Maternal Grandfather Hypertensive disorder pt. added direct ly (10/05) API-13 Not available 10/05/2022 08:37:25 Paternal Grandmother Myocardial infarction pt. added direct ly (10/05) API-13 Not available 10/05/2022 08:37:13 Paternal Grandmother Hypertensive disorder pt. added direct ly (10/05) API-13 Not available 10/05/2022 08:37:25 Paternal Grandmother Disorder of thyroid gland pt. added direct ly (10/05) API-13 Not available 10/05/2022 08:37:56 Paternal Grandfather Myocardial infarction pt. added direct ly (10/05) API-13 Not available 10/05/2022 08:37:13 Paternal Grandfather Hypertensive disorder pt. added direct ly (10/05) API-13 Not available 10/05/2022 08:37:25 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 No medical history recorded. Gynecological HistoryNo gynecological history recorded. Obstetrics History GPAL:G 0 P 0 0 0 0 Past Encounters Encounter ID Performer Location Encounter Start Date Encounter Closed Date Diagnosis/Indication Diagnosis SNOMED-CT Code Diagnosis ICD10 Code Diagnosis Note [id number] Bro Bhardwaj PA-C [facility] [address] [address] 10/05/2022 13:47:47 10/05/2022 14:36:44 Nausea and vomiting 91764765 R11.2 Chronic id iopathic constipation 73607691 K59.04 Abdominal bloating 47118 9008 R14.0 Health Concerns Section Related Observation LastModified by Organization Detai ls LastModified Time None Recorded Concern Status LastModified by Organization Details LastModified Time None Recorded Advance Directives Directive None Recorded Payers Insurance Date Sequence Insurance Name Policy Number Policy Jung Covered Member ID Jung Member ID Guarantor Name 11/01/2022 1 [employer] [facility] (MEDICAID HMO) Sydney Dykes [id number] Sydney Dykes Notes Date Note Type Note Provider Name and Address Organization Details Recorded Time 10/05/2022 text/html Ms. Dykes is an 16 [id number] who was referred by Ngoc Linares APRN in [place]. She presents to the clinic today complaining of nausea, vomiting, constipation and bloating. 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 The patient states she currently wakes up between 3am and 6am, and vomits until 9am daily. She reports this has been ongoing for the last 5-6 months. She states she is only able to drink water and eat granola bars daily. She reports salad and milk have led to increased epigastric bloating and cramping and she has eliminated these foods from her diet. She states she takes zofran daily which does help relieve her nausea. She states she took omeprazole for three months which did not improve her symptoms. The patient reports occasional use of cannabis gummies. She also complains of straining and constipation. She reports taking miralax BID with 1 BM a week. She denies hematemesis, hematochezia and excessive NSAID use. Bro Bhardwaj PA-C [address], [place], [address], [facility] - [place] & [place] 10/05/2022 16:20:17 OBGyn Episode No OBEpisode recorded.
--- OUTSIDE RECORDS SUMMARY | 2025-01-30 13:10 | XMS_ITS | Clinical Summary ---
Author Organization Healthcare Address [address] [place] [address] Care Team Providers Care Waste Disposal Attendant Name Role Phone Eligio Greco MD Primary Care Provider Allergies Active Allergy Reactions Criticality Noted Date Comments Cocos Nucifera Anaphylaxis High 11/27/2018 Penicillins Hives,Itching,Rash,U nknown - Patient states they do not know rxn details Medium 11/27/2018 Medications ondansetron ODT (Zofran-ODT) 4 MG disintegrating tablet DISSOLVE 1 TABLET IN MOUTH EVERY 6 HOURS FOR 3 DAYS NEEDED FOR NAUSEA AND VOMITING Active Active Problems Problem Noted Date Diagnosed Date Bipolar II disorder 01/14/2021 Abnormal uterine bleeding (AUB) 12/02/2020 Generalized anxiety disorder 10/06/2020 Labia enlarged 03/27/2020 Migraine 03/27/2020 Chronic generalized abdominal pain 09/25/2019 Immunizations Immunization Administration Dates Next Due DTaP 08/06/2008, 5,06/22/2004,04/20/2004, HPV, Unspecified 03/21/2018,03/20/2015 Hep A, ped/adol, 2 dose 01/02/2019,03/21/2018 Hep B, Unspecified 06/22/2004,02/17/2004, 004 HiB, unspecified 06/18/2005,12/18/2004, 4,02/17/2004 IPV 08/06/2008,06/22/2004,04/20/2004 ,02/17/2004 MMR 08/06/2008,06/18/2005 Meningococcal MCV4O 03/20/2015 Pneumococcal Conjugate PCV 13 08/20/2004, 004,02/17/2004 Tdap 03/20/2015 Varicella 03/20/2015,12/18/2004 Family History 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 Relation Name Comments Asthma Father Father Heart disease Father Father Polycystic ovary syndrome Maternal Grandmother Arthritis Mother Mother Cancer Mother Mother Diabetes Mother Mother Miscarriages / Stillbirths Mother Mother Polycystic ovary syndrome Mother Mother Rheumatologic disease Mother Mother Stroke Mother Mother Anxiety and depression Other 1 Arthritis Other 2 Cardiac disorder Other 3 Diabetes Other 4 Endometriosis Other 5 Hypertension Other 6 Breast cancer Other 7 Conversions - Other Other 8 malignan t neoplasm of ovary Migraines Other 9 Relation Name Status Comments Father Father Maternal Grandmother Mother Mother Other 1 Other 2 Other 3 Other 4 Other 5 Other 6 Other 7 Other 8 Other 9 Social History Tobacco Use Types Packs/Day Years Used Date Smoking Tobacco: Former Cigarettes 0.3 0.5 Smokeless Tobacco: Never Tobacco Cessation:Counseling Given: Not Answered Alcohol Use Standard Drinks/Week Comments No 0 (1 standard drink = 0.6 oz pur e alcohol) Comments No Sex and Gender Information Value Date Recorded Sex Assigned at Not on file Legal Sex Female 8:27 PM EDT Gender Identity Not on file Sexual Orientation Not on file Last Filed Vital Signs Vital Sign Reading Time Taken Comments Blood Pressure 136/76 10/21/2023 3:31 PM EST Pulse 111 10/21/2023 3:31 PM EST Temperature 36.8 C (98.3 F) 10/21/2023 3:31 PM EST Respiratory Rate 18 10/21/2023 3:31 PM EST Oxygen Saturation 98% 03/02/2023 1:38 PM EDT Inhaled Oxygen Concentration - - Weight 70.8 kg (156 lb) 05/19/2023 9:00 AM EDT Height 175.3 cm (5' 9 ) 05/19/2023 9:00 AM EDT Body Mass Index 23.04 05/19/2023 9:00 AM EDT Plan of Treatment Health Maintenance Due Date Last Done Comments Dental Oral Exam 2003 Dental Prophylaxis 2003 Dental X-Ray: Bitewings 2003 Dental X-Ray: Full Mouth 2003 [facility]-Depression Screening 2003 [facility]-HIV Screening 2003 [facility]-Hepatitis C Screening 2003 [facility]-Infant/Child/Adol SDOH Screenings 2003 [facility]- SDOH Screenings 12/04/2021 [facility]-Adult SDOH Screenings 12/04/2021 [id number] Vaccine (3 - season) 2024 08/12/2021, 07/20/2021 [facility]-Chlamydia and Gonorrhea Screening 10/20/2024 10/21/2023, 10/21/2023, 10/13/2021, Additional history exists [facility]-Pap Smear 12/04/2024 [facility]-DTaP,Tdap,and Td Vaccines (7 - Td or Tdap) 03/20/2025 03/20/2015, 08/06/2008, 06/18/2005, Additional history exists [facility]-Influenza Vaccine (Season Ended) 2025 09/04/2012 [facility]-Zoster Vaccines (1 of 2) 12/04/2053 03/20/2015, 12/18/2004 [facility]-Hepatitis B Vaccines Completed 004, 06/22/2004, 02/17/2004, Additional history exists [facility]-Pneumococcal Vaccine: Pediatrics (0 to 5 Years) and At-Risk Patients (6 to 49 Years) Aged Out 10/20/2004, 08/20/2004, 06/22/2004, Additional history exists No longer eligible based on patient's age to complete this topic [facility]-HIB Vaccines Completed 06/18/2005, , 04/20/2004, Additional history exists [facility]-IPV Vaccines Completed 08/06/2008, 08/2003, 06/22/2004, Additional history exists [facility]-Varicella Vaccines Completed 03/20/2015, 2004 HPV Vaccines Completed 03/21/2018, 03/20/2015 [facility]-Hepatitis A Vaccines Completed 01/02/2019, 02/21 [facility]-Rotavirus Vaccines Aged Out No lo nger eligible based on patient's age to complete this topic Procedures Procedure Name Priority Date/Time Associated Diagnosis Comments NEISSERIA GONORRHEA DNA BY PCR Routine 10/21/2023 4:18 PM EST from Last 3 Months or Most Recently Relevant to Health Maintenance Results * Neisseria gonorrhea DNA by PCR (10/21/2023 4:18 PM EST) Neisseria gonorrhea DNA PCR Result Not Detected Not Detected. 10/23/2023 3:10 PM EST [facility] Swab Cervix uteri structure / Unknown Non-blood Collection / Unknown 10/21/2023 4:18 PM EST 10/21/2023 4:25 PM EST Narrative [facility] - 10/23/2023 3:10 PM EST This test is performed by the [employer] instrument for Real Time PCR C. trachomatis and N. gonorrhea. This test is FDA approved for use with endocervical, vaginal, and urine specimens. This test is used for clinical purposes. It should not be regarded as invesigational or for research. The [facility] Clinical Microbiology Laboratory is certified under the Clinical Laboratory Improvement Amendments of 1988 (CLIA-88) as qualified to perform high complexity clinical laboratory testing. Bebe Ortiz MD LAB MICROBIOLOGY - GENERAL ORD ERABLES Final Result [facility] [address] [id number] from Last 3 Months or Most Recently Relevant to Health Maintenance Insurance [facility] MEDICAID [employer] MEDICAID AETNA [employer] MEDICAID Care Teams Waste Disposal Attendant Relationship Specialty Start Date End Date Eligio Greco MD [address] [place] [address] PCP - General Internal Medicine 11/25/22
--- NOTE | 2025-01-30 13:11 | XR_ITS ---
FINAL REPORT CLINICAL HISTORY: Fell in a pothole COMPARISON: None FINDINGS: RIGHT FOOT Three views demonstrate no acute fracture or dislocation. The joint spaces appear normal. No acute soft tissue abnormality is seen. IMPRESSION: No acute bony abnormality. Reviewed, Interpreted and Dictated by Chuy Euceda MD Transcribed by Willow Tong Authenticated and [facility]
--- NOTE | 2025-01-30 13:11 | XR_ITS ---
FINAL REPORT CLINICAL HISTORY: Fell in a pothole COMPARISON: None FINDINGS: RIGHT ANKLE 3 views of the right ankle were obtained. There is no acute fracture or dislocation. The mortise is intact. Visualized joint spaces are normally aligned. Soft tissues are unremarkable. IMPRESSION: No acute bony abnormality. Reviewed, Interpreted and Dictated by Chuy Euceda MD Transcribed by Willow Tong Authenticated and [facility]
--- NOTE | 2025-01-30 13:13 | ED_ITS ---
<Statement entered by Galo Carlisle MD - 02/06/25 15:19> I was consulted by the FLORENTINO, and we discussed the complexity of the problems being addressed. I approved the treatment and management plan for this patient's care in the emergency department, thus performing a substantive portion of the medical decision making. Galo Carlisle MD, PEACE, FACEP Discharge Plan Disposition Patient Disposition: Home, Self-Care Prescriptions Prescriptions: No Action docusate sodium [Colace] 100 mg capsule 100 mg PO BID hydrocortisone [Procto-Med HC] 2.5 % cream with perineal applicator ME Patient Comments: APPLY CREAM RECTALLY TO AFFECTED AREA TWICE DAILY FOR 14 DAYS Metamucil 3.4 gram/5.4 gram powder 1 tbsp PO WEEKLY Rx Instructions: mix into at least 8 oz of water or juice before administering nitrofurantoin monohyd/m-cryst [Macrobid] 100 mg capsule 100 mg PO BID 7 Days Qty: 14 0RF ciprofloxacin HCl 500 mg tablet 500 mg PO BID 3 Days Qty: 6 0RF Referrals Follow up/Referrals: Gino Cui DO [Staff Physician, Orthopedics] - See instructions Eligio Greco MD [Primary Care Provider, Internal Medicine] - See instructions Activity Restrictions/Add. Instructions Additional Instructions/Restrictions: Elevate, ice, rest and take ibuprofen and Tylenol for pain. If not improving please follow-up with Dr. Cui who is Ortho or your primary care provider. Clinical Impressions Clinical Impression: Ankle sprain and strain Stand Alone Forms Stand Alone Forms: Work/School Release Instructions Patient Instructions: Sprain Print Language Print Language: Korean Discharge ED Provider: Galo Carlisle General Adult HPI General Chief complaint: Extremity Injury, Lower Stated complaint: AO 01/30/25 1240, inj right foot Time Seen by Provider: 01/30/25 13:06 History of Present Illness HPI narrative: This is a 19-year-old female who presents to the ED today for complaint of right ankle pain. She fell in a pothole after she took the trash at work. She says she heard a pop and is having a lot of pain in that right ankle. It is swollen and painful. She has no other signs or symptoms at this time no pain in her knee. No other problems or concerns today. Related Data Home Medications ?Medication ?Instructions ?Recorded ?Confirmed docusate sodium 100 mg capsule 100 mg PO BID 05/30/25 05/30/25 (Colace) hydrocortisone 2.5 % topical cream ME 01/18/25 5 with perineal applicator (Procto-Med HC) psyllium husk 3.4 gram/5.4 gram 1 tbsp PO WEEKLY 01/1801/18/25 oral powder (Metamucil) Previous Rx's ?Medication ?Instructions ?Recorded nitrofurantoin 100 mg PO BID 7 days #14 cap s 01/18/25 monohydrate/macrocrystals 100 mg capsule (Macrobid) ciprofloxacin HCl 500 mg tablet 500 mg PO BID 3 days # 6 tabs 01/21/25 Allergies Allergy/AdvReac Type Severity Reaction Status Date / Time Penicillins (PENICILLINS) Allergy Unknown Anaphylaxis Verified 01/18/25 09:36 coconut Allergy Unknown Verified 01/18/25 09:36 allergy reaction Sulfa (Sulfonamide Allergy Anaphylaxis Verified 01/18/25 09:36 Antibiotics) [facility] Disclaimer: The information contained in this section may have been updated after the patient was seen, as this information can be updated by other users. 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 (Updated 01/30/25 @ 14:39 by Meg Menon (ED), TRANSLATOR INTERPRETER) Encounter for insertion of Mirena IUD Abnormal uterine bleeding Esophageal fissure Retained products of conception after induced termination of Elective anemia Alpha thalassemia silent carrier Palpitations Insomnia Encephalopathy Benign liver cyst Asthma Syncope and collapse Atypical chest pain Gastroenteritis Heavy menstrual bleeding Surgical History S/P D&C (status post dilation and curettage) S/P History of mandibular surgery Family History Mother FHx: mental illness Bipolar Substance abuse Father FHx: mental illness Bipolar Substance abuse Family/Other Heart attack Coronary artery disease Family/Other Cancer breast, lung, brain, cervical Family/Other Idiopathic pulmonary fibrosis Social History Smoking Status: Former smoker how long ago did patient quit smoking: vape second hand exposure: No alcohol intake: never substance use type: other details: cbd gummies current occupational status: unemployed and student Travel in the last 8 weeks?: Inside the [place] adopted: Yes household members: adopted family housing: house lives independently: No marital status: single service: No 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 [employer] current occupational exposures/hazards: Yes Hx Recent Travel: No sexually active: No caffeine: Yes Other 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 Have you received the Flu Vaccine for this season: No Have you received the Pneumonia Vaccine: No ROS Obtained: Yes Systems reviewed as appropriate & no additional complaints except as documented Constitutional Constitutional: Reports as per HPI Physical Exam General General appearance: alert and in distress Head Head exam: normocephalic Eye Eye exam: Present PERRL and EOMI ENT ENT exam: Present normal oropharynx and mucous membranes moist Neck Neck exam: Present full ROM and trachea midline Respiratory Respiratory exam: Present normal lung sounds bilaterally Cardiovascular Cardiovascular exam: Present regular rate, normal rhythm, normal heart sounds, +S1 and +S2 Extremities Exam Extremities exam: Present normal inspection, tenderness (right lateral malleolus swelling and tenderness), normal capillary refill, edema and joint swelling Neurological Exam Neurological exam: Present alert, oriented X3 and normal gait Skin Skin exam: Present warm, dry and intact Medical Decision Making Medical Records Screening: Per USPSTF and CDC recommendations, given the prevalence of disease in our region, it is our hospital?s policy to screen for HIV and viral Hepatitis for all patients aged 18 and over and those with ongoing risk factors. Maksim Inquiry Pt receiving controlled substance: No Maksim was queried for this patient: No Vital Signs: 01/30/25 13:09 01/30/25 14:40 Temperature 98.5 F 98.7 F Temperature Source Oral Oral Pulse Rate 75 Pulse Rate [Right Radial] 98 H Respiratory Rate 15 15 Blood Pressure 135/70 Blood Pressure [Right Arm] 147/92 H Blood Pressure Mean [Right Arm] 110 Blood Pressure Source Automatic Cuff Blood Pressure Source [Right Arm] Automatic Cuff Blood Pressure Position Supine Blood Pressure Position [Right Arm] Supine 02 Sat by Pulse Oximetry 100 Oxygen Delivery Method Room Air Room Air Orders (Tests/Meds): ED MEDICATIONS Discontinued Medications Generic Name Dose Route Start Last Admin Trade Name Freq PRN Reason Stop Dose Admin Hydrocodone Bitart/Acetaminophen 1 tab 01/30/25 13:11 01/30/25 13:25 Hydrocodone/Apap 5/325 Mg Tablet PO 01/30/25 13:12 1 tab ONCE ONE Administration ORDERS Category Date Time Status Ankle XR -Right minimum 3 Views [XR ankle RT min 3V] Exams 01/30/25 13:11 Completed Stat Foot XR right minimum 3 views [XR foot RT min 3V] Stat Exams 01/30/25 13:11 Completed Medical Decision Narrative: patient is a 19-year-old female presenting to the emergency department for evaluation of right ankle pain after falling in a pothole. Patient is hemodynamically stable and nontoxic-appearing upon arrival, afebrile. Differential diagnosis includes right ankle strain, sprain versus fracture. Workup will be conducted with specific imaging. Initial inventions include analgesics. Imaging informally interpreted by me and remarkable for nothing acute. Formal imaging read remarkable for nothing acute. Upon repeat evaluation patient's pain is improved, appears better perfused. Advised patient to follow-up with PCP if pain persist or worsens. Use crutches and Evan wrap. Ice, elevate and use Motrin and Tylenol as well as ibuprofen for pain. Patient safe for discharge home. Critical Care Critical Care Time Critical Care Time: No
[2025-01-30] MEDS: HYDROCODONE/APAP 5/325 MG TABLET 1 TAB PO (13:25)
[2025-01-30 14:40] VITALS: BP 135/70; PULSE 75; RESP 15; TEMP 37.1; O2SAT 99
== END 2025-01-30 14:48 | disposition home or self-care (01) ==
PROVIDERS: Emergency Provider Student in an Organized Health Care Education/Training Program; PCP Internal Medicine Adolescent Medicine
DX: S93.401A Sprain of unspecified ligament of right ankle, initial encounter (principal); S96.911A Strain of unspecified muscle and tendon at ankle and foot level, right foot, initial encounter; W17.2XXA Fall into hole, initial encounter
CPT/HCPCS: 73610; 73630; 99283

== ENCOUNTER 2025-02-07 10:59 | Outpatient (CLI) | payer OTHER, SELFPAY ==
[2025-02-07 15:16] LABS: Coronavirus 19, PCR Not Detected (NotDetected); Influenza A, PCR Not Detected (NotDetected); Influenza B, PCR Not Detected (NotDetected); Respiratory Syncytial Virus Not Detected (NotDetected)
[2025-02-08 05:19] LABS: Human Rhinovirus Detected (NotDetected)
--- OUTSIDE RECORDS SUMMARY | 2025-02-08 13:47 | XMS_ITS | Clinical Summary ---
Author Organization Healthcare Address [address] [place] [address] Care Team Providers Care Sales Administration Specialist Name Role Phone Eligio Greco MD Primary Care Provider [phone] Allergies Active Allergy Reactions Criticality Noted Date [...] SDOH Screenings 12/04/2021 [facility]-Adult SDOH Screenings 12/04/2021 [id number] Vaccine (3 - season) 2024 08/12/2021, 07/20/2021 [...] Detected Not Detected. 10/23/2023 3:10 PM EST [facility] Swab Cervix uteri structure / Unknown Non-blood Collection / Unknown 10/21/2023 4:18 PM EST 10/21/2023 4:25 PM EST Narrative [facility] - 10/23/2023 3:10 PM EST This test is performed by the [employer] instrument for Real Time PCR C. trachomatis and N. gonorrhea. This test is FDA approved for use with endocervical, vaginal, and urine specimens. This test is used for clinical purposes. It should not be regarded as invesigational or for research. The [facility] Clinical Microbiology Laboratory is certified under the Clinical Laboratory Improvement Amendments of 1988 (CLIA-88) as qualified to perform high complexity clinical laboratory testing. Bebe Ortiz MD LAB MICROBIOLOGY - GENERAL ORD ERABLES Final Result [facility] [address] [id number] from Last 3 Months or Most Recently Relevant to Health Maintenance Insurance [facility] MEDICAID [employer] MEDICAID [employer] MEDICAID Care Teams Sales Administration Specialist Relationship Specialty Start Date End Date Eligio Greco MD [address] [place] [address] PCP - General Internal Medicine 11/25/22
--- OUTSIDE RECORDS SUMMARY | 2025-02-08 13:47 | XMS_ITS | Data Portability ---
Author Organization [place] [facility] [place] & [facility] [place] ADMIN Address [address] [place] [id number] Care Team Providers Care Crankshaft Grinder Name Role Phone NGOC LINARES Primary Care Provider Assessment Encounter Date Assessment Date Assessment LastModified by Organization Details LastModified Time 10/05/2022 10/05/2022 18 [id number] who presents with: 1) Nausea and vomiting [...] -Consider colonoscopy if symptoms are not improved [email or web address] Not available 10/05/2022 16:20:02 Plan of Treatment Reminders Order Date Submit Date Provider Last Modified By Organization Details Last Modified Time Details Appointments None recorded. Lab None recorded. Referral None recorded. Procedures None recorded. Surgeries None recorded. Imaging RF, upper gastrointes tinal tract + small bowel, w/ contrast PO 2022 023 [id number] [facility] (Scheduling), [address], [place], [address], 14:36:44 Medication Orders Linzess 145 mcg capsule 2022 023 [email or web address] [facility], [address], [address], 3 16:16:00 Patient TargetsNo targets recorded. Patient InstructionsNo instructions recorded. Reason for Referral None Reported. Problems Name Problem SNOMED Code Status Onset Date Resolution Date Notes Provider Name and Address Organization Details Recorded Time Acquired pes planus 914627666 Active 023 Kirstie rivero, [place] - [facility] [place] & [place] 3 14:03:17 Abdominal pain 27264142 Active 023 Kirstie rivero, [place] - [facility] [place] & [place] 3 14:04:04 Nausea 543835807 Active 023 Kirstie rivero, [place] - [facility] - [place] & [place] 3 14:04:28 Abdominal bloating 868239163 Active 023 Bro Bhardwaj PA-C [address] [facility], [place], [address] , [place] - [facility] - [place] & [place] 3 14:31:28 Problem Notes None recorded. Medical Equipment None Reported. Allergies Allergen ID Allergen Name Allergen Category Reaction Reaction Severity Criticality Documentation Date Start Date Code Code System Note Provider Name and Address Organization Details Recorded Time 62245 Product containin g penicilli n (product) medicatio n Not available Not available Not available 10/05/2022 45244 8001 SNOMED Kirstie rivero, [place] - [facility] [place] & [place] 3 13:58:10 78769 penicilli n G Not available anaphylax is severe Not available 10/05/2022 7980 RxNorm Kirstie rivero, [place] - [facility] [place] & [place] 3 13:53:59 73671 coconut extract food,medi cation hives mild Not available 10/05/2022 78834 48 RxNorm Kirstie rivero, [place] - [facility] [place] & [place] 3 13:53:59 Medications Name Sig Start Date [...] Address Organization Details Last Updated DateTime 10/05/2022 87956.22 dafne Asher [place] - [facility] [place] & [place] 10/05/2022 13:53:05 Social History None recorded. Functional [...] SNOMED-CT Code Diagnosis ICD10 Code Diagnosis Note [id number] Bro Bhardwaj PA-C [facility] [address] [address] 10/05/2022 13:47:47 10/05/2022 14:36:44 Nausea and vomiting 03707805 R11.2 Chronic id iopathic constipation 96214478 K59.04 Abdominal bloating 89597 9008 R14.0 Health Concerns Section Related Observation LastModified by Organization Detai ls LastModified Time None Recorded Concern Status LastModified by Organization Details LastModified Time None Recorded Advance Directives Directive None Recorded Payers Insurance Date Sequence Insurance Name Policy Number Policy Jung Covered Member ID Jung Member ID Guarantor Name 11/01/2022 1 AETNA [facility] (MEDICAID HMO) Sydney Dykes [id number] Sydney Dykes Notes Date Note Type Note Provider Name and Address Organization Details Recorded Time 10/05/2022 text/html Ms. Dykes is an 16 [id number] who was referred by Ngoc Linares APRN in [place]. She presents to the clinic today complaining [...] and excessive NSAID use. Bro Bhardwaj PA-C [address], [place], [address], [facility] - [place] & [place] 10/05/2022 16:20:17 OBGyn Episode No OBEpisode recorded.
== END 2025-02-07 23:59 | disposition home or self-care (01) ==
LOC: LAB.DROPOF 02-08 13:46
PROVIDERS: PCP Student in an Organized Health Care Education/Training Program; Visit Provider Student in an Organized Health Care Education/Training Program
DX: J02.9 Acute pharyngitis, unspecified (principal)
CPT/HCPCS: 87631

== ENCOUNTER 2025-02-26 10:02 | Outpatient (RCR) | payer OTHER, SELFPAY | END 2025-02-26 23:59 | disposition home or self-care (01) | LOC: PT 10:02 | PROVIDERS: Visit Provider Physician Assistant | DX: S93.401A Sprain of unspecified ligament of right ankle, initial encounter (principal); X58.XXXA Exposure to other specified factors, initial encounter | CPT/HCPCS: 97760 ==

== ENCOUNTER 2025-03-21 08:00 | Outpatient (RCR) | payer OTHER, SELFPAY ==
--- NOTE | 2025-03-12 09:00 | HMH.PTOPEV ---
PT Outpatient Evaluation Rehab PT Outpatient Evaluation Start: 03/12/25 07:53 Freq: Status: Active Protocol: Document 03/12/25 07:54 FRANSISCA (Rec: 03/12/25 08:59 FRANSISCA [id number]) E-signed By Nicolette Low, PT Outpatient Therapy Subjective History Subjective History Pt is a 19 y/o female who reports she sprained her right ankle 6-8 weeks ago. Pt states she stepped in a pot hole and her ankle rolled inward with immediate onset of lateral ankle pain, swelling and bruising. Pt had R foot and ankle xrays on 01/30/25 with impression of no acute bony abnormalities. Pt denies having a MRI of the R ankle. Pt states she saw ortho and was diagnosed with a grade 3 sprain of he CFL and was placed in a fracture boot for 4 weeks. Pt states she transitioned to a lace up ankle brace at her last orthopedic appointment on 02/26/25. Pt states she does perform household ambulation without the brace although her ankle feels weak and unstable without the brace. Pt denies numbness/tingling. Pt reports continued constant swelling and lateral ankle pain aggravated by prolonged standing, walking, pivoting/twisting, stair climbing, and sitting. Pt reports intermittent brief sharp medial ankle pain and new onset of plantar foot pain that started last week as well. Pt also reports onset of R groin pain since the ankle injury and wear of the boot. Pt described groin pain as sharp in nature exacerbated by getting up from a seated position or pivoting on the RLE. 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 Pt states she does take OTC Tylenol and ices her ankle as needed which helps some with pain. Pt states prior to her injury she was very active running and lifting weights 5x/week which she would like to return to. 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 Chief Complaint Pain,Swelling,Gives out/Unstable,Weakness Symptom Type Ache,Sharp Symptoms Relieved By Ice,Brace/Support,OTC Meds Symptoms Aggravated Standing,Physical Activity,Twisting,Walking By Current Functional Standing,Recreation Activity,Walking,Stairs,Balance Limitations Symptom Description Constant but Variable Level of pain today 3 (0-10) Pain scale - at its 2 best (0-10) Pain scale - at its 6 worst (0-10) Hip/Knee Eval Palpation Tenderness right Hip Palpation Tenderness Findings Hip Palpation 2/4 TTP of R hip flexor and adductor mm Overall Comment MMT Hip Flexion Strength 4- Good- Grade Hip Abduction 4 Good Strength Grade Hip Adduction 4 Good Strength Grade Hip Extension 4 Good Strength Grade Knee Extension 5 Normal Strength Grade Knee Flexion 5 Normal Strength Grade Ankle/Foot Eval Gait Observation General Gait Pattern Antalgic Gait,Decrease Weight Bear (R) Observation Assistive Device Ambulation Assistive None Device Palpation Tenderness right Ankle/Foot Palpation Tenderness Findings Ankle/Foot Palpation 3/4 TTP of CFL, ATFL, PF origin, medial malleoli Overall Comment ATF TTP positive CF TTP positive ROM Ankle/Foot 5 Dorsiflexion w/Knee Extended Active Range Motion ( degrees) Ankle/Foot Plantar 20 Flexion Active Range of Motion (degrees) Ankle/Foot Eversion 5 p! Active Range of Motion (degrees) Ankle/Foot Inversion 12 p! Active Range of Motion (degrees) MMT Ankle Dorsiflexion 3+ Fair+ Strength Grade Ankle Plantarflexion 3+ Fair+ Strength Grade Foot Eversion 3+ Fair+ Strength Grade Foot Inversion 3+ Fair+ Strength Grade Lower Extremity Functional Index Activities Today, do you or would you have any difficulty at all with: a.Any of your usual No difficulty work, housework or school activities b. Your usual A little bit of difficulty hobbies, recreational or sporting activities c. Getting into or No difficulty out of the bath d. Walking between No difficulty rooms e. Putting on your A little bit of difficulty shoes or socks f. Squatting A little bit of difficulty g. Lifting an object No difficulty , like a bag of groceries from the floor h. Performing light A little bit of difficulty activities around your home i. Performing heavy A little bit of difficulty activities around your home j. Getting into or Moderate difficulty out of a car k. Walking 2 blocks A little bit of difficulty l. Walking a mile Moderate difficulty m. Going up or down Moderate difficulty 10 stairs (about 1 flight of stairs) n. Standing for 1 Quite a bit of difficulty hour o. Sitting for 1 No difficulty hour p. Running on even Moderate difficulty ground q. Running on uneven Quite a bit of difficulty ground r. Making sharp Quite a bit of difficulty turns while running fast s. Hopping Moderate difficulty t. Rolling over in No difficulty bed LEFI Score Lower Extremity 55 Functional Index Score Outpatient Therapy Assessment Impairments Problems/ Palpation Tenderness,Impaired Range of Motion,Impaired Impairmments Strength,Impaired Walking,Impaired Standing,Impaired Stair Climbing,Impaired Incline Stepping,Impaired Stepping on Uneven Surface,Impaired Recreational Activities,Impaired Running,Impaired Jumping,Impaired Work Activities,Impaired Balance,Increased Edema, Subjective C/O Pain,Impaired Self Care/Self Management Prognosis Rehab Potential Good Clinical Impression Consistent with Yes Diagnosis Additional details: Also R hip pain M25.551 with onset due to R ankle injury & wear of fracture boot Short Term Goals Number of Weeks 3 Increase Range of Yes: Improve R ankle AROM by 5 degrees ea plane Motion Increase Strength Yes: Improve R ankle MMT to 4-/5 grossly to assist with function Decrease Subjective Yes: Improve pain at worst to 4/10 to improve overall C/O Pain QOL Improve Self Care/ Yes Self Management Patient to be Ind w/ Yes HEP Assisted Goals Number of Weeks 6 Decreased Palpation Yes: 0-1/4 TTP of R lateral ankle complex Tenderness Increase Range of Yes: Improve R ankle AROM DF to 15, PF to 45, Inv to 25 Motion -30, Ev 10-15 Increase Strength Yes: Improve RLE MMT to 4+-5/5 grossly to assist with function Improve Gait Pattern Yes: non-antalgic to decrease fall risk without Assistive Device Improve Ability to Yes: 1 flight reciprocally with pain 2/10 or less to Climb Stairs assist with work navigation Improve LEFI Score Yes: Improve score to at least 65/80 to assist with return to PLOF Decrease Subjective Yes: Improve pain at worst to 2/10 to improve overall C/O Pain QOL Outpatient Therapy Plan of Care Treatment Plan May Include Therapeutic Exercise Yes Including Home Exercise Program Manual Therapy Yes Techniques Neuromuscular Re- Yes education Therapeutic Yes Activities to Return to Previous Functional/Work Level Gait Training Yes ADL/Self Care Yes Education Dry Needling Yes Thermal Modalities Yes Electrical Yes Stimulation Ultrasound/ Yes Phonophoresis Iontophoresis Yes Orthotics/Bracing/ Yes Splinting Vasopneumatic Yes Compression Pump Massage Yes Manual Lymphatic Yes Drainage Eval/Re-Eval Yes Frequency Times per week 2 Duration Number of Weeks 4-6 Addendums This patient is a No candidate for social or vocational rehab ? Patient/Guardian Yes verbally acknowledges understanding of treatment program and consents to further treatment? Patient/Guardian Yes verbally acknowledges understanding of diagnosis, prognosis and goals for treatment? Eval Complexity PT Charges 30805 - Low Complexity Shoulder/Elbow Eval Shoulder Objective Measurements Elbow Objective Measurements PHYSICIAN CERTIFICATION: I certify the specified therapy services for Sydney Dykes are required, authorized, and reviewed every 30 days.
== END 2025-03-21 23:59 | disposition home or self-care (01) ==
LOC: PT 08:00
PROVIDERS: Visit Provider Physician Assistant
DX: W18.42XA Slipping, tripping and stumbling without falling due to stepping into hole or opening, initial encounter; S93.401A Sprain of unspecified ligament of right ankle, initial encounter
CPT/HCPCS: 97014; 97016; 97035; 97110; 97161; G0283

== ENCOUNTER 2025-03-21 13:40 | Outpatient (CLI) | payer OTHER, SELFPAY ==
[2025-03-21 15:05] LABS: Monoscreen (Rapid) Negative (Negative)
--- OUTSIDE RECORDS SUMMARY | 2025-03-22 13:44 | XMS_ITS | Clinical Summary ---
Author Organization Healthcare Address [address] [place] [address] Care Team Providers Care Proj Mgr Name Role Phone Eligio Greco MD Primary Care Provider [phone] Allergies Active Allergy Reactions Criticality Noted Date [...] Health Maintenance Due Date Last Done Comments [facility]-Depression Screening 2003 [facility]-HIV Screening 2003 [facility]-Hepatitis C Screening 2003 [facility]-/Child/Adol SDOH Screenings 2003 [facility]- SDOH Screenings 12/04/2021 [facility]-Adult SDOH Screenings 12/04/2021 [id number] Vaccine ( season) 2024 08/12/2021, 07/20/2021 [facility]-Chlamydia and Gonorrhea Screening 10/20/2024 10/21/2023, 10/21/2023, 10/13/2021, Additional history exists [facility]-Pap Smear 12/04/2024 [facility]-DTaP,Tdap,and Td Vaccines (7 - Td or Tdap) 03/20/2025 03/20/2015, 08/06/2008, 06/18/2005, Additional history exists [facility]-Influenza Vaccine (#1) 2025 09/04/2012 [facility]-Zoster Vaccines (1 of 2) [...] Detected Not Detected. 10/23/2023 3:10 PM EST [facility] Swab Cervix uteri structure / Unknown Non-blood Collection / Unknown 10/21/2023 4:18 PM EST 10/21/2023 4:25 PM EST Narrative [facility] - 10/23/2023 3:10 PM EST This test is performed by the [employer] instrument for Real Time PCR C. trachomatis and N. gonorrhea. This test is FDA approved for use with endocervical, vaginal, and urine specimens. This test is used for clinical purposes. It should not be regarded as invesigational or for research. The [facility] Clinical Microbiology Laboratory is certified under the Clinical Laboratory Improvement Amendments of 1988 (CLIA-88) as qualified to perform high complexity clinical laboratory testing. Bebe Ortiz MD LAB MICROBIOLOGY - GENERAL ORD ERABLES Final Result [facility] [address] [place] [address] from Last 3 Months or Most Recently Relevant to Health Maintenance Insurance [employer] MEDICAID [employer] MEDICAID [facility] MEDICAID Care Teams Proj Mgr Relationship Specialty Start Date End Date Eligio Greco MD [address] [place] [address] PCP - General Internal Medicine 11/25/22
== END 2025-03-21 23:59 | disposition home or self-care (01) ==
LOC: LAB.DROPOF 03-22 13:43
PROVIDERS: PCP Student in an Organized Health Care Education/Training Program; Visit Provider Student in an Organized Health Care Education/Training Program
DX: J02.8 Acute pharyngitis due to other specified organisms (principal); B97.89 Other viral agents as the cause of diseases classified elsewhere
CPT/HCPCS: 86318

== ENCOUNTER 2025-04-15 09:30 | Outpatient (CLI) | payer OTHER, SELFPAY ==
--- OUTSIDE RECORDS SUMMARY | 2025-04-17 12:02 | XMS_ITS | Clinical Summary ---
Author Organization Healthcare Address [address] [place] [place] [address] Care Team Providers Care Netezza Architect Name Role Phone Eligio Greco MD Primary Care Provider [phone] Allergies Active Allergy Reactions Criticality Noted Date Comments Cocos Nucifera Anaphylaxis High 11/27/2018 Penicillins Hives,Itching,Rash,U nknown - Patient states they do not know rxn details Medium 11/27/2018 Medications ondansetron ODT (Zofran-ODT) 4 MG disintegrating tablet DISSOLVE 1 TABLET IN MOUTH EVERY 6 HOURS FOR 3 DAYS NEEDED FOR NAUSEA AND VOMITING 1 Active Active Problems Problem Noted Date Diagnosed [...] SDOH Screenings 12/04/2021 [facility]-Adult SDOH Screenings 12/04/2021 [id number] Vaccine ( season) 2024 08/12/2021, 07/20/2021 [facility]-Chlamydia [...] EST This test is performed by the iPosition instrument for Real Time PCR C. trachomatis and N. gonorrhea. This test is FDA approved for use with endocervical, vaginal, and urine specimens. This test is used for clinical purposes. It should not be regarded as invesigational or for research. The [facility] Clinical Microbiology Laboratory is certified under the Clinical Laboratory Improvement Amendments of 1988 (CLIA-88) as qualified to perform high complexity clinical laboratory testing. Bebe Ortiz MD LAB MICROBIOLOGY - GENERAL ORD ERABLES Final Result [facility] [address] [place] [address] from Last 3 Months or Most Recently Relevant to Health Maintenance Insurance [employer] MEDICAID [employer] MEDICAID [facility] MEDICAID Care Teams Netezza Architect Relationship Specialty Start Date End Date Eligio Greco MD [address] [place] [id number] PCP - General Internal Medicine 11/25/22
--- OUTSIDE RECORDS SUMMARY | 2025-04-17 12:02 | XMS_ITS | Clinical Summary ---
Author Organization [facility] Address [address] [place] [address] Care Team Providers Care Training Designer Name Role Phone Eligio Greco MD Primary Care Provider [phone] Allergies Active Allergy Reactions Criticality Noted Date Comments Coconut (Cocos Nucifera) Hives Low 11/14/2023 Cocos Nucifera Anaphylaxis High 11/27/2018 Penicillins Anaphylaxis,Hives,It Ra keith sh,Unknown (See Comments) High 11/27/2018 Medications famotidine (PEPCID) 20 MG tablet Take 1 tablet by mouth Every 12 (Twelve) Hours. 4 Active ondansetron ODT (ZOFRAN-ODT) [address] 1 tablet on the tongue As Needed for Nausea or Vomiting. 4 Active Vit-Fe Fumarate-FA ( vitamin 27-0.8) 27-0.8 MG tablet tablet Take by mouth Daily. Active Active Problems Problem Noted Date Diagnosed Date Alpha thalassemia silent carrier 11/14/2023 Assessment & Plan (11/14/2023 12:28 PM EDT): Found on carrier screening. We discussed options for testing father the baby though is not available for testing. We discussed testing fetus at . We did discuss option for amniocentesis but patient currently declines. Poor growth affecting management of mother in third trimester 11/14/2023 Assessment & Plan (12/19/2023 9:05 AM EDT): Today's ultrasound shows overall growth at the 20th percentile and abdominal circumference now at the 1st percentile. Normal JANETT and umbilical artery Dopplers. Though given now AC is less than the 3rd percentile would recommend delivery during 37 weeks. Patient is currently 37 weeks. Patient was instructed to call primary OFFAL SEPARATOR to schedule an induction this week. Assessment & Plan (2023 11:05 AM EDT): Stable growth with AC 5th%ile and normal fluid, UA doppler and BPP. Recommend twice weekly testing in your office with follow up growth in 2 weeks with MFM. With current growth parameters and testing, delivery at 38 - 39 weeks GA is appropriate though will reevaluate growth in 2 weeks Assessment & Plan (11/14/2023 12:36 PM EDT): Overall growth at the 34th percentile though abdominal circumference at the 4th percentile today. Reassuringly the amniotic fluid and umbilical artery cord Doppler are both normal today. BPP is 8/8 today. We discussed the various etiologies for growth restriction including: Infection, genetic factors such as aneuploidy, placental abnormalities, constitutional, and maternal vascular disease. No sonographic markers for infection were seen today. No congenital anomalies were seen today. Patient previously with low risk NIPT. We discussed how management of growth restriction is essentially the same regardless of etiology with close monitoring. We will have patient return for growth ultrasound in 3 weeks. Would recommend starting nonstress test in your office. If growth remains stable and testing remains reassuring can likely deliver at 39 weeks. Social History Tobacco Use Types Packs/Day Years Used Date Smoking Tobacco: Never Smokeless Tobacco: Never Tobacco Cessation:Counseling Given: Not Answered Alcohol Use Standard Drinks/Week Comments Never 0 (1 standard drink = 0.6 oz pur e alcohol) Abuse Screen Answer Date Recorded Unsafe at Home or Work/School Not on file Feels Threatened by Someone? Not on file Does Anyone Keep You from Co ntacting Others or Doint Things Outside the Home? Not on file 11/02/2023 Physical Sign of Abuse Present Not on file 0 11/02/2023 Housing Stability Answer Date Recorded Current Living Arrangements Not on file 10/20 Potentially Unsafe Housing Conditions Not on chetan e 11/02/2023 Family and Community Support Answer Lencho e Recorded Help with Day-to-Day Activities Not on file 11/02/2023 Lonely or Isolated Not on file 11/02/2023 Employment Answer Date Recorded Do you want help finding or keeping work or a rusty b? Not on file 11/02/2023 Disabilities Answer Date Recorded Concentrating, Remembering, or Making Decisions Difficulty Not on file 11/02/2023 Doing Errands Independently Difficulty Not on fi le 11/02/2023 Education Answer Date Recorded Help with school or training? Not on file Preferred Language Not on file 11/02/2023 Comments No Sex and Gender Information Value Date Recorded Sex Assigned at Not on file Legal Sex Female 2:07 PM EDT Gender Identity Not on file Sexual Orientation Not on file Last Filed Vital Signs Vital Sign Reading Time Taken Comments Blood Pressure 121/80 12/19/2023 8:30 AM EDT Pulse - - Temperature - - Respiratory Rate - - Oxygen Saturation - - Inhaled Oxygen Concentration - - Weight 93.4 kg (206 lb) 12/19/2023 8:30 AM EDT Height 172.7 cm (5' 8 ) 11/14/2023 11:44 AM EDT Body Mass Index 31.32 11/14/2023 11:44 AM EDT Plan of Treatment Health Maintenance Due Date Last Done Comments Annual Gynecologic Pelvic and Breast Exam 2003 MENINGOCOCCAL B VACCINE (1 of 2 - Standard) 2019 ANNUAL PHYSICAL 11/02/2023 HEPATITIS C SCREENING 11/02/2023 COVID-19 Vaccine ( season) 2024 08/12/2021, 07/20/2021 INFLUENZA VACCINE 05/22/2025 09/04/2012 TDAP/TD VACCINES (3 - Td or Tdap) 10/19/2033 10/19/2023, 03/20/2015 Pneumococcal Vaccine 0-49 Aged Out 2004, 08/20/2004, 06/22/2004, Additional history exists No longer eligible based on patient's age to complete this topic HPV VACCINES Completed 03/21/2018, 03/20/2015 MENINGOCOCCAL VACCINE Completed 09/19/2020, 015 Insurance [facility] Care Teams Training Designer Relationship Specialty Start Date End Date Eligio Greco MD [address] [facility] [address] [place] [id number] PCP - General Adolescent Medicine 11/14/23
== END 2025-04-15 23:59 | disposition home or self-care (01) ==
LOC: LAB.DROPOF 04-17 12:00
PROVIDERS: PCP Obstetrics & Gynecology; Visit Provider Obstetrics & Gynecology
DX: R30.0 Dysuria (principal)
CPT/HCPCS: 87086

== ENCOUNTER 2025-07-10 07:06 | Outpatient (CLI) | payer OTHER, SELFPAY ==
--- OUTSIDE RECORDS SUMMARY | 2025-07-10 07:09 | XMS_ITS | Clinical Summary ---
Author Organization Healthcare Address [address] [place] [address] Care Team Providers Care Prizer Hand Name Role Phone Eligio Greco MD Primary Care Provider [phone] Allergies Active Allergy Reactions Criticality Noted Date [...] disorder 10/06/2020 Labia enlarged 03/27/2020 Migraine 03/27/2020 Resolved Problems Problem Noted Date Diagnosed Date Resolved Date Chronic generalized abdominal pain 09/25/2019 05/12/2025 Immunizations Immunization Administration Dates Next Due DTaP [...] SDOH Screenings 12/04/2021 [facility]-Adult SDOH Screenings 12/04/2021 [facility]-Chlamydia and Gonorrhea Screening 10/20/2024 10/21/2023, 10/21/2023, 10/13/2021, Additional history exists [facility]-Pap Smear 12/04/2024 [facility]-DTaP,Tdap,and Td Vaccines (7 - Td or Tdap) 03/20/2025 03/20/2015, 08/06/2008, 06/18/2005, Additional history exists [id number] Vaccine (3 - season) 2025 08/12/2021, 07/20/2021 [facility]-Influenza Vaccine (#1) 2025 09/04/2012 [facility]-Zoster Vaccines [...] Detected Not Detected. 10/23/2023 3:10 PM EST [facility] Swab Cervix uteri structure / Unknown Non-blood Collection / Unknown 10/21/2023 4:18 PM EST 10/21/2023 4:25 PM EST Narrative [facility] - 10/23/2023 3:10 PM EST This test is performed by the Actifi instrument for Real Time PCR C. trachomatis and N. gonorrhea. This test is FDA approved for use with endocervical, vaginal, and urine specimens. This test is used for clinical purposes. It should not be regarded as invesigational or for research. The [facility] Clinical [facility]biology [facility] is certified under the Clinical Laboratory Improvement Amendments of 1988 (CLIA-88) as qualified to perform high complexity clinical laboratory testing. Bebe Ortiz MD LAB MICROBIOLOGY - GENERAL ORD ERABLES Final Result [facility] [address] [place] [address] from Last 3 Months or Most Recently Relevant to Health Maintenance Insurance [employer] MEDICAID [employer] MEDICAID [employer] MEDICAID Care Teams Prizer Hand Relationship Specialty Start Date End Date Eligio Greco MD [address] [place], [place] [id number] PCP - General Internal Medicine 11/25/22
--- OUTSIDE RECORDS SUMMARY | 2025-07-10 07:09 | XMS_ITS | Clinical Summary ---
Author Organization [facility] Address [address] [place] [address] Care Team Providers Care Restorative Rehab Aide Name Role Phone Eligio Greco MD Primary Care Provider [phone] Allergies Active Allergy Reactions Criticality Noted Date [...] weeks. Patient was instructed to call primary PLANT OPERATIONS WORKER to schedule an induction this week. Assessment [...] ANNUAL PHYSICAL 11/02/2023 HEPATITIS C SCREENING 11/02/2023 INFLUENZA VACCINE 03/22/2025 09/04/2012 TDAP/TD VACCINES (3 - Td or Tdap) 10/19/2033 10/19/2023, 03/20/2015 Pneumococcal Vaccine 0-49 Aged Out 2004, 08/20/2004, 06/22/2004, Additional history exists No longer eligible based on patient's age to complete this topic HPV VACCINES Completed 03/21/2018, 03/20/2015 MENINGOCOCCAL VACCINE Completed 09/19/2020, 015 [facility] Care Teams Restorative Rehab Aide Relationship Specialty Start Date End Date Eligio Greco MD [address] [facility] [address] [place] [id number] PCP - General Adolescent Medicine 11/14/23
--- NOTE | 2025-07-10 07:30 | US_ITS ---
PROCEDURE: US TRANSVAGINAL CLINICAL INDICATION: heavy, abnormal periods COMPARISON: US US TRANSVAGINAL from 12/10/2024 FINDINGS: Transvaginal sonographic images of the pelvis were obtained. UTERUS: 8.6 cm x 5.3cmx 3.8 cm anteverted with a combined endometrial thickness of 3.4mm. A scar is seen. LEFT OVARY: 3.5 cmx2.3cmx1.8cm with a volume of 7.5ml. There are several small peripheral follicles. RIGHT OVARY: 4.3cmx 3.0cmx2.0cm with a volume of 13.6ml. There are 2 follicles. Follicle 1. Measures 2.1 cm in size. Follicle 2. Measures 1.7 cm in size There are several smaller follicles present. Both ovaries are seen and appear normal. Doppler flow to both ovaries are seen. There is no fluid in the cul-de-sac. IMPRESSION: 1. Anteverted uterus normal in shape and size. The endometrium is thin. 2. Both ovaries are seen and appear normal. The right ovary contains 2 follicles measuring 2.1 cm and 1.7 cm. The left ovary has several small peripheral follicles. 3. No fluid in the cul-de-sac. Dictated by: Sergei Angeles MD 07/10/2025 16:32 Sergei Angeles MD in OV 07/10/2025 16:32
== END 2025-07-10 23:59 | disposition home or self-care (01) ==
LOC: RAD 07:07
PROVIDERS: PCP Internal Medicine Adolescent Medicine; Visit Provider Obstetrics & Gynecology
DX: N83.02 Follicular cyst of left ovary (principal); N83.01 Follicular cyst of right ovary; N85.4 Malposition of uterus; N92.0 Excessive and frequent menstruation with regular cycle; N93.9 Abnormal uterine and vaginal bleeding, unspecified
CPT/HCPCS: 76830

== ENCOUNTER 2025-08-10 08:11 | Outpatient (CLI) | payer OTHER, SELFPAY ==
[2025-08-10 22:25] LABS: HCG Qualitative, Serum Negative (Negative)
[2025-08-10 23:18] LABS: Hepatitis C Ab Qual. W/ RFX NEGATIVE (Negative)
--- OUTSIDE RECORDS SUMMARY | 2025-08-12 08:13 | XMS_ITS | Clinical Summary ---
Author Organization [facility] Address [address] [place] [address] Care Team Providers Care General Dentist/Owner Name Role Phone Eligio Greco MD Primary Care Provider [phone] Allergies Active Allergy Reactions Criticality Noted Date [...] weeks. Patient was instructed to call primary ENTERPRISE SALES EXECUTIVE to schedule an induction this week. Assessment [...] 03/20/2015 MENINGOCOCCAL VACCINE Completed 09/19/2020, 015 [facility] Care Teams General Dentist/Owner Relationship Specialty Start Date End Date Eligio Greco MD [address] [facility] [address] [place] [id number] PCP - General Adolescent Medicine 11/14/23
--- OUTSIDE RECORDS SUMMARY | 2025-08-12 08:13 | XMS_ITS | Clinical Summary ---
Author Organization Healthcare Address [address] [place] [address] Care Team Providers Care Facility Maintenance Supervisor Name Role Phone Eligio Greco MD Primary Care Provider [phone] Allergies Active Allergy Reactions Criticality Noted Date [...] 05/19/2023 9:00 AM EDT Plan of Treatment Upcoming Encounters Date Type Department Care Team ([facility] st Contact Info) Description 09/20/2025 10:00 AM EST Initial Medical Office Building Obstetrics and Gynecology [address], [address] [place] [address] Gabrielle Asher S, QUALITY REVIEW TRAINER [address] [facility] [address] [place] [address] Health Maintenance Due Date Last Done Comments [facility]-Depression Screening 2003 [facility]-HIV Screening 2003 [facility]-Hepatitis C Screening 2003 [facility]-Infant/Child/Adol SDOH Screenings 2003 [facility]- SDOH Screenings 12/04/2021 [facility]-Adult SDOH Screenings 12/04/2021 [facility]-Chlamydia and Gonorrhea Screening 10/20/2024 10/21/2023, 10/21/2023, 10/13/2021, Additional history exists [facility]-Pap Smear 12/04/2024 [id number] Vaccine ( season) 2025 08/12/2021, 07/20/2021 [facility]-Influenza Vaccine (#1) 2025 09/04/2012 [facility]-DTaP,Tdap,and Td Vaccines (9 - Td or Tdap) 05/17/2035 05/17/2025, 10/19/2023, 03/20/2015, Additional history exists [facility]-Zoster Vaccines (1 of 2) 12/04/2053 03/20/2015, [...] Detected Not Detected. 10/23/2023 3:10 PM EST [facility] Swab Cervix uteri structure / Unknown Non-blood Collection / Unknown 10/21/2023 4:18 PM EST 10/21/2023 4:25 PM EST Narrative [facility] - 10/23/2023 3:10 PM EST This test is performed by the Savorfull instrument for Real Time PCR C. trachomatis and N. gonorrhea. This test is FDA approved for use with endocervical, vaginal, and urine specimens. This test is used for clinical purposes. It should not be regarded as invesigational or for research. The [facility] Clinical Microbiology Laboratory is certified under the Clinical Laboratory Improvement Amendments of 1988 (CLIA-88) as qualified to perform high complexity clinical laboratory testing. Bebe Ortiz MD LAB MICROBIOLOGY - GENERAL ORD ERABLES Final Result [facility] [address] [place] [id number] from Last 3 Months or Most Recently Relevant to Health Maintenance Insurance AETNA [facility] MEDICAID [employer] MEDICAID [employer] MEDICAID Care Teams Facility Maintenance Supervisor Relationship Specialty Start Date End Date Eligio Greco MD [address] [place] [id number] PCP - General Internal Medicine 11/25/22
[2025-08-13 03:45] LABS: Hepatitis B Surface Antigen Negative (Negative)
== END 2025-08-10 23:59 | disposition home or self-care (01) ==
LOC: LAB.DROPOF 08-12 08:12
PROVIDERS: PCP Internal Medicine Adolescent Medicine; Visit Provider Nurse Practitioner
DX: N92.6 Irregular menstruation, unspecified (principal); Z11.59 Encounter for screening for other viral diseases
CPT/HCPCS: 84144; 84703; 86803; 87340; 87389